=== PATIENT | female | born 1935 | race Caucasian/White ===

== ENCOUNTER → 2016-12-07 | Outpatient (CLI) | payer MEDICARE, BC ==
--- NOTE | 2016-12-08 19:17 | PE ---
EXAMINATION TYPE: PET CT fusion skull to thigh DATE OF EXAM: 12/07/2016 CLINICAL HISTORY: 83-year-old female subsequent evaluation of right breast cancer, status post chemot herapy and 2016 and previous surgery as well. TECHNIQUE: Following the intravenous administration of 3.59 mCi of F-18 FDG, whole body images are performed from the skull base to the midthigh. Images are reviewed on the computer in the coronal, a xial, and sagittal planes. Reconstructed rotating images are created on independent workstation and reviewed on the computer. A localization and attenuation correction CT is performed in conjunction with the PET scan. Glucose level: 108 mg/dL COMPARISON: CT abdomen 01/19/2014. FINDINGS: PET: Physiologic FDG uptake within the neck. There is right axillary lymphadenopathy with the largest individual lymph node measuring up to 3.8 cm short axis but an aggregate dimension over 6.4 cm. Max SUV 10.2; no additional thoracic lymphadenopa thy seen. Patient is status post left mastectomy and left axillary node dissection. There are bilateral renal cysts, largest in the right upper pole measuring 5.0 cm, increased from 201 4 where it measured 4.2 cm. Incidentally, there is delayed excretion of FDG from the left kidney. The renal lesions do not show discrete FDG uptake. Otherwise, physiologic uptake within the abdomen and pelvis. ATTENUATION CORRECTION CT: Visualized paranasal sinuses and mastoid air cells are clear. The heart is enlarged. There are mitral annular calcifications and coronary vessel calcifications whi ch are a marker for coronary artery. Aorta is normal caliber with conventional arch vessel branching anatomy. Some strandy atelectasis in the inferior lingula. No consolidation or pleural effusion. No dilated small bowel, free fluid, or free air. No mesenteric or retroperitoneal lymphadenopathy. Mi ld stool variant with sigmoid diverticulosis. No pericolonic inflammatory change. Bones: Degenerative changes of the hips and throughout the lumbar spine with endplate spondylosis the thoracic spine. IMPRESSION: 1. Hypermetabolic right axillary lymphadenopathy with an aggregate dimension of 6.4 cm. 2. No additional metastatic disease identified. 3. Incidental: Cardiomegaly, multiple renal cysts measuring up to 5 cm, and sigmoid diverticulosis.
== END | disposition home or self-care (01) ==
LOC: RADPETMAIN 09:14
PROVIDERS: ATTEND Internal Medicine Hematology & Oncology
DX: C50.412 Malignant neoplasm of upper-outer quadrant of left female breast (principal); R59.0 Localized enlarged lymph nodes
CPT/HCPCS: 78815; A9552

== ENCOUNTER → 2016-12-13 | Outpatient (CLI) | payer MEDICARE, BC ==
[2016-12-13 08:28] LABS: INR 1.3 (<1.2); Partial Thromboplastin Time 26.9 sec (22.0-30.0); Prothrombin Time 12.8 sec (9.0-12.0)
== END | disposition home or self-care (01) ==
LOC: LABWHC1 07:50
PROVIDERS: ATTEND Internal Medicine Hematology & Oncology
DX: Z51.81 Encounter for therapeutic drug level monitoring (principal); Z79.01 Long term (current) use of anticoagulants
CPT/HCPCS: 36415; 85610; 85730

== ENCOUNTER → 2016-12-13 | Day surgery (SDC) | payer MEDICARE, BC ==
[2016-12-13 08:34] VITALS: TEMP 97.7; BMI 30.2
--- NOTE | 2016-12-13 09:39 | USB ---
EXAMINATION TYPE: US biopsy breast VAD RT DATE OF EXAM: 12/13/2016 CLINICAL HISTORY: R92.8 ABN MAMMO. TECHNIQUE: Ultrasound guided core biopsy of right breast. COMPARISON: NONE FINDINGS: The procedure of ultrasound guided core biopsy was explained to the patient. Benefits, alternatives, and risks were discussed. An informed consent was then obtained. The 10-11 o'clock lesion was not identified on preliminary imaging and therefore cannot be biopsied percutaneously. The patient was placed in supine positioning for imaging and for the procedure. The overlying skin was prepped and draped in usual sterile fashion. Lidocaine buffered with bicarbonate was used as anesthetic into the skin and subcutaneous tissue up to area of concern in the right breast. A enrique was made with surgical scalpel. Under ultrasound guidance, a 16-gauge vacuum assisted biopsy gun device was used to obtain 3 core samples. Following this, a biopsy clip was left in lesion. The patient tolerated the procedure well without any immediate complication. The patient was kept in the radiology department for short stay after the procedure and then discharged home in stable condition. IMPRESSION: Successful, uncomplicated ultrasound guided core biopsy of area of concern in the right axilla, full pathology results to follow. Note is made the 10th 11:00 lesion described on the recent ultrasound was not seen on today's exam and therefore percutaneous biopsy could not be performed. If there is high clinical suspicion then MRI could BE obtained. Pathology Results: Malignant RIGHT AXILLA, CORE BIOPSY: POORLY DIFFERENTIATED INVASIVE DUCTAL CARCINOMA. SEE SURGICAL PATHOLOGY CANCER CASE SUMMARY AND COMMENT. Recommendation Surgical consult of the right breast. PADMINI
[2016-12-13 10:10] VITALS: BP 169/68; PULSE 69; RESP 16
== END ==
LOC: RADUSWWP 07:17
PROVIDERS: ATTEND Internal Medicine Hematology & Oncology
DX: C50.411 Malignant neoplasm of upper-outer quadrant of right female breast (principal); Z17.1 Estrogen receptor negative status [ER-]; Z85.3 Personal history of malignant neoplasm of breast
CPT/HCPCS: 36415; 85610; 85730; 88305; 88341; 88342

== ENCOUNTER 2017-03-01 06:33 | Inpatient (IN) | payer MEDICARE, BC ==
--- NOTE | 2017-03-01 07:20 | ED ---
General Adult HPI - General Chief complaint: Shortness of Breath Stated complaint: Diff breathing Time Seen by Provider: 03/01/17 07:00 Source: EMS, RN notes reviewed Mode of arrival: EMS Limitations: no limitations - History of Present Illness Initial comments: This is an 81-year-old female who presents emergency Department with a past medical history significant for breast cancer. Patient states she received chemotherapy on Friday. Patient states yesterday she started becoming short of breath and today she continues to be short of breath. Patient also is noted that her legs are much more edematous than normal. Patient denies any fever patient denies any cough patient denies any chest pain or palpitations. Patient states she does have a history of atrial fibrillation however. Patient denies abdominal pain patient denies nausea vomiting diarrhea. - Related Data Home Medications Medication Instructions Recorded Confirmed Allopurinol [Zyloprim] 300 mg PO DAILY 01/14/14 12/13/16 Digoxin [Lanoxin] 125 mcg PO QAM 01/14/14 12/13/16 Simvastatin [Zocor] 20 mg PO HS 01/14/14 12/13/16 amLODIPine [Norvasc] 2.5 mg PO QAM 01/14/14 12/13/16 Warfarin [Coumadin] 2.5 mg PO DAILY 05/04/14 12/13/16 ALPRAZolam [Xanax] 0.25 mg PO BID PRN 05/12/14 12/13/16 Mirabegron [Myrbetriq] 25 mg PO DAILY 12/10/16 12/13/16 Previous Rx's Medication Instructions Recorded Furosemide [Lasix] 40 mg PO BID@0900,1600 #60 tab 01/24/14 Metoprolol Tartrate [Lopressor] 25 mg PO BID #60 tab 01/24/14 Potassium Chloride ER [K-Dur 10] 10 meq PO DAILY #30 tab.er.prt 01/24/14 Allergies Allergy/AdvReac Type Severity Reaction Status Date / Time No Known Allergies Allergy Verified 03/01/17 06:39 Review of Systems ROS Statement: Those systems with pertinent positive or pertinent negative responses have been documented in the HPI. ROS Other: All systems not noted in ROS Statement are negative. Past Medical History Past Medical History: Atrial Fibrillation, Cancer, Heart Failure, Hyperlipidemia , Hypertension Additional Past Medical History / Comment(s): BREAST CA LEFT BREAST DX 6-1-16, MULT. SKIN CA REMOVED, irregular heart beat, benign paroxysmal positional vertigo, MITRAL VALVE stenosis, GOUT,incontinent of urine, rt breast biopsy "-" History of Any Multi-Drug Resistant Organisms: MRSA Date of last positivie culture/infection: 05/12/2014 MDRO Source:: Right First Finger - pt denies Past Surgical History: Breast Surgery, Hysterectomy, Joint Replacement Additional Past Surgical History / Comment(s): CORE BX LT BREAST, RT KNEE REPLACEMENT, RT INDEX FINGER DEBRIDEMENT,SKIN GRAFTRT FIRST FINGER, MULT SKIN CA REMOVED,CATHERINE CAT. lt breast mastectomy due to ca with lymph node removal july 2015 Past Anesthesia/Blood Transfusion Reactions: Motion Sickness Additional Past Anesthesia/Blood Transfusion Reaction / Comment(s): TAKES LONG TIME TO WAKE UP FROM ANESTHESIA,NO PROBLEMS WITH PRIOR BLOOD TRANSFUSIONS Past Psychological History: Anxiety Smoking Status: Never smoker Past Alcohol Use History: None Reported Past Drug Use History: None Reported - Past Family History Brother(s) Family Medical History: Cancer Additional Family Medical History / Comment(s): BRAIN CANCER,HEART PROBLEMS Father Family Medical History: Renal Disease Mother Family Medical History: Myocardial Infarction ([place]) General Exam - General Exam Comments Initial Comments: GENERAL: Patient is well-developed and well-nourished. Patient is nontoxic and well- hydrated and is in mild distress. ENT: Neck is soft and supple. No significant lymphadenopathy is noted. Oropharynx is clear. Moist mucous membranes. Neck has full range of motion without eliciting any pain. EYES: The sclera were anicteric and conjunctiva were pink and moist. Extraocular movements were intact and pupils were equal round and reactive to light. Eyelids were unremarkable. PULMONARY: Unlabored respirations. Good breath sounds bilaterally. Patient has crackles in the right base CARDIOVASCULAR: There is a regular rate and rhythm without any murmurs gallops or rubs. ABDOMEN: Soft and nontender with normal bowel sounds. No palpable organomegaly was noted. There is no palpable pulsatile mass. SKIN: Skin is clear with no lesions or rashes and otherwise unremarkable. NEUROLOGIC: Patient is alert and oriented x3. Cranial nerves II through XII are grossly intact. Motor and sensory are also intact. Normal speech, volume and content. Symmetrical smile. MUSCULOSKELETAL: Normal extremities with adequate strength and full range of motion. 2+ edema bilaterally LYMPHATICS: No significant lymphadenopathy is noted PSYCHIATRIC: Normal psychiatric evaluation. Normal interpersonal interactions appears functionally intact in deals appropriately with others. No signs of depression. No signs of anxiety. Limitations: no limitations Course Vital Signs 03/01/17 03/01/17 03/01/17 06:35 08:12 09:00 Temperature 98.4 F Pulse Rate 94 91 98 Respiratory 22 16 16 Rate Blood Pressure 153/106 154/66 177/86 O2 Sat by Pulse 94 L 97 95 Oximetry Medical Decision Making - Medical Decision Making EKG shows atrial fibrillation with rapid ventricular response at 104 bpm QRS is 102 QT interval 338 QTC is 444. Patient's EKG is a very poor quality but no obvious ST segment elevation is noted. Chest x-ray shows basilar airspace disease as well as bilateral pleural effusions and some vascular congestion. I started the patient on Lasix. I started the patient on Levaquin prophylactically secondary to the patient's immunocompromised state and the airspace disease seen at the bases. I spoke with Dr. Landry and he agreed to admit the patient I wrote admitting orders. - Lab Data Result diagrams: 03/01/17 06:58 03/01/17 06:58 Lab Results 03/01/17 03/01/17 03/01/17 Range/Units 06:58 06:58 06:58 WBC 14.5 H (3.8-10.6) k/uL RBC 3.10 L (3.80-5.40) m/uL Hgb 9.4 L (11.4-16.0) gm/dL Hct 28.9 L (34.0-46.0) % MCV 93.4 (80.0-100.0) fL MCH 30.4 (25.0-35.0) pg MCHC 32.6 (31.0-37.0) g/dL RDW 18.7 H (11.5-15.5) % Plt Count 82 L (150-450) k/uL Neutrophils % (Manual) 91 % Band Neutrophils % 3 % Lymphocytes % (Manual) 2 % Monocytes % (Manual) 3 % Eosinophils % (Manual) 1 % Neutrophils # (Manual) 13.60 H (1.3-7.7) k/uL Lymphocytes # (Manual) 0.29 L (1.0-4.8) k/uL Monocytes # (Manual) 0.44 (0-1.0) k/uL Eosinophils # (Manual) 0.15 (0-0.7) k/uL Nucleated RBCs 0 (0-0) /100 WBC Polychromasia Present Anisocytosis Slight Macrocytosis Slight PT (9.0-12.0) sec INR (<1.2) APTT (22.0-30.0) sec Sodium 141 (137-145) mmol/L Potassium 3.9 (3.5-5.1) mmol/L Chloride 105 (98-107) mmol/L Carbon Dioxide 27 (22-30) mmol/L Anion Gap 9 mmol/L BUN 76 H (7-17) mg/dL Creatinine 1.29 H (0.52-1.04) mg/dL Est GFR (MDRD) Af Amer 48 (>60 ml/min/1.73 sqM) Est GFR (MDRD) Non-Af 39 (>60 ml/min/1.73 sqM) Glucose 106 H (74-99) mg/dL Calcium 9.5 (8.4-10.2) mg/dL Magnesium 1.6 (1.6-2.3) mg/dL Total Bilirubin 1.3 (0.2-1.3) mg/dL AST 51 H (14-36) U/L ALT 67 H (9-52) U/L Alkaline Phosphatase 90 (38-126) U/L Total Creatine Kinase <20 L (30-135) U/L CK-MB (CK-2) 0.9 (0.0-2.4) ng/mL CK-MB (CK-2) Rel Index Troponin I 0.047 H* (0.000-0.034) ng/mL NT-Pro-B Natriuret Pep pg/mL Total Protein 5.1 L (6.3-8.2) g/dL Albumin 2.9 L (3.5-5.0) g/dL Urine Color Urine Appearance (Clear) Urine pH (5.0-8.0) Ur Specific [place] (1.001-1.035) Urine Protein (Negative) Urine Glucose (UA) (Negative) Urine Ketones (Negative) Urine Blood (Negative) Urine Nitrite (Negative) Urine Bilirubin (Negative) Urine Urobilinogen (<2.0) mg/dL Ur Leukocyte Esterase (Negative) Urine WBC (0-5) /hpf Ur Squamous Epith Cells (0-4) /hpf Urine Bacteria (None) /hpf Urine Mucus (None) /hpf 03/01/17 03/01/17 03/01/17 Range/Units 06:58 06:58 09:03 WBC (3.8-10.6) k/uL RBC (3.80-5.40) m/uL Hgb (11.4-16.0) gm/dL Hct (34.0-46.0) % MCV (80.0-100.0) fL MCH (25.0-35.0) pg MCHC (31.0-37.0) g/dL RDW (11.5-15.5) % Plt Count (150-450) k/uL Neutrophils % (Manual) % Band Neutrophils % % Lymphocytes % (Manual) % Monocytes % (Manual) % Eosinophils % (Manual) % Neutrophils # (Manual) (1.3-7.7) k/uL Lymphocytes # (Manual) (1.0-4.8) k/uL Monocytes # (Manual) (0-1.0) k/uL Eosinophils # (Manual) (0-0.7) k/uL Nucleated RBCs (0-0) /100 WBC Polychromasia Anisocytosis Macrocytosis PT 37.5 H (9.0-12.0) sec INR 4.2 H (<1.2) APTT 30.9 H (22.0-30.0) sec Sodium (137-145) mmol/L Potassium (3.5-5.1) mmol/L Chloride (98-107) mmol/L Carbon Dioxide (22-30) mmol/L Anion Gap mmol/L BUN (7-17) mg/dL Creatinine (0.52-1.04) mg/dL Est GFR (MDRD) Af Amer (>60 ml/min/1.73 sqM) Est GFR (MDRD) Non-Af (>60 ml/min/1.73 sqM) Glucose (74-99) mg/dL Calcium (8.4-10.2) mg/dL Magnesium (1.6-2.3) mg/dL Total Bilirubin (0.2-1.3) mg/dL AST (14-36) U/L ALT (9-52) U/L Alkaline Phosphatase (38-126) U/L Total Creatine Kinase (30-135) U/L CK-MB (CK-2) (0.0-2.4) ng/mL CK-MB (CK-2) Rel Index Troponin I (0.000-0.034) ng/mL NT-Pro-B Natriuret Pep 1700 pg/mL Total Protein (6.3-8.2) g/dL Albumin (3.5-5.0) g/dL Urine Color Light Yellow Urine Appearance Cloudy H (Clear) Urine pH 5.5 (5.0-8.0) Ur Specific [place] 1.009 (1.001-1.035) Urine Protein 1+ H (Negative) Urine Glucose (UA) Negative (Negative) Urine Ketones Negative (Negative) Urine Blood Negative (Negative) Urine Nitrite Negative (Negative) Urine Bilirubin Negative (Negative) Urine Urobilinogen <2.0 (<2.0) mg/dL Ur Leukocyte Esterase Negative (Negative) Urine WBC 2 (0-5) /hpf Ur Squamous Epith Cells 4 (0-4) /hpf Urine Bacteria Rare H (None) /hpf Urine Mucus Rare H (None) /hpf Disposition Clinical Impression: Pulmonary edema Disposition: ADMITTED IP TO THIS HOSP Referrals: Donnie Zuniga MD [Primary Care Provider] - 1-2 days Time of Disposition: 10:13
[2017-03-01 07:50] LABS: Anisocytosis Slight; HCT 28.9 % (34.0-46.0); HGB 9.4 gm/dL (11.4-16.0); MCH 30.4 pg (25.0-35.0); MCHC 32.6 g/dL (31.0-37.0); MCV 93.4 fL (80.0-100.0); Macrocytosis Slight; Mean Platelet Volume 8.5; RDW 18.7 % (11.5-15.5); WBC 14.5 k/uL (3.8-10.6)
[2017-03-01 07:58] LABS: INR 4.2 (<1.2); Partial Thromboplastin Time 30.9 sec (22.0-30.0); Prothrombin Time 37.5 sec (9.0-12.0)
[2017-03-01 08:05] LABS: Albumin 2.9 g/dL (3.5-5.0); Calcium 9.5 mg/dL (8.4-10.2); Magnesium 1.6 mg/dL (1.6-2.3); Potassium 3.9 mmol/L (3.5-5.1); Total Bilirubin 1.3 mg/dL (0.2-1.3); Total Protein 5.1 g/dL (6.3-8.2)
[2017-03-01 08:09] LABS: Band Neutrophils % 3 %; Eosinophils # (M) 0.15 k/uL (0-0.7); Lymphocytes # (M) 0.29 k/uL (1.0-4.8); Monocytes # (M) 0.44 k/uL (0-1.0); Neutrophils % (M) 91 %; Nucleated Red Blood Cells 0 /100 WBC (0-0); Polychromasia Present; Total Cells Counted 100
[2017-03-01 08:10] LABS: Platelet Count 82 k/uL (150-450)
[2017-03-01 08:41] LABS: Creatine Kinase <20 U/L (30-135)
[2017-03-01 08:54] LABS: Creatine Kinase MB 0.9 ng/mL (0.0-2.4)
[2017-03-01 08:56] LABS: Troponin I 0.047 ng/mL (0.000-0.034)
[2017-03-01 09:16] LABS: Appearance,Urine Cloudy (Clear); Bacteria,Urine Rare /hpf; Bilirubin,Urine Negative (Negative); Blood,Urine Negative (Negative); Color,Urine Light Yellow; Glucose,Urine (UA) Negative (Negative); Ketones,Urine Negative (Negative); Leukocyte Esterase,Urine Negative (Negative); Mucus,Urine Rare /hpf; Nitrite,Urine Negative (Negative); PH, Urine 5.5 (5.0-8.0); Protein,Urine 1+ (Negative); Specific Gravity,Urine 1.009 (1.001-1.035); Squamous Epithelial Cell,Urine 4 /hpf (0-4); Urobilinogen,Urine <2.0 mg/dL (<2.0); WBC,Urine 2 /hpf (0-5)
--- NOTE | 2017-03-01 09:36 | XR ---
EXAMINATION TYPE: XR chest 2V DATE OF EXAM: 03/01/2017 HISTORY: Difficulty breathing . REFERENCE: Previous study dated 01/19/2014. FINDINGS: There is a MediPort in place via a left internal jugular approach. Its tip is in the superi or vena cava. There is bibasilar airspace disease and small, bilateral effusions. The heart is enlarged. There is m ild vascular congestion without rubi edema. IMPRESSION: 1. BIBASILAR AIRSPACE DISEASE. 2. SMALL, BILATERAL EFFUSIONS. 3. CARDIOMEGALY AND VASCULAR CONGESTION.
[2017-03-01] MEDS ORDERED: FUROSEMIDE 10 MG/ML 2 ML VIAL IV STA (09:56)
[2017-03-01] MEDS ORDERED: LEVOFLOXACIN 750MG-D5W PMX 750 MG in DEXTROSE/WATER 1 150ML.BAG IVPB STA (09:58)
[2017-03-01] MEDS: LEVOFLOXACIN 750MG-D5W PMX 750 MG in DEXTROSE/WATER 1 150ML.BAG IVPB SCH (10:44)
[2017-03-01] MEDS: FUROSEMIDE 10 MG/ML 4 ML VIAL IV SCH ×2 (10:44→22:30)
[2017-03-01] MEDS ORDERED: MECLIZINE 25 MG TAB PO PRN (15:39)
[2017-03-01] MEDS: ATORVASTATIN 10 MG TAB PO SCH (20:05)
[2017-03-01] MEDS: METOPROLOL TARTRATE 25 MG TAB PO SCH (20:33)
[2017-03-01 21:08] LABS: Calcium 9.3 mg/dL (8.4-10.2); Magnesium 1.6 mg/dL (1.6-2.3); Potassium 4.1 mmol/L (3.5-5.1)
[2017-03-01] MEDS: ALPRAZolam 0.25 MG TAB PO PRN (22:30)
[2017-03-02 06:28] LABS: INR 2.4 (<1.2); Prothrombin Time 21.8 sec (9.0-12.0)
[2017-03-02 06:30] LABS: Anisocytosis Slight; Basophils # (A) 0.1 k/uL (0-0.2); Basophils % (A) 2 %; Eosinophils % (A) 1 %; HGB 8.3 gm/dL (11.4-16.0); Lymphocytes # (A) 0.2 k/uL (1.0-4.8); Lymphocytes % (A) 7 %; MCH 30.2 pg (25.0-35.0); MCHC 32.1 g/dL (31.0-37.0); MCV 94.1 fL (80.0-100.0); Macrocytosis Slight; Mean Platelet Volume 8.6; Monocytes # (A) 0.2 k/uL (0-1.0); Monocytes % (A) 8 %; Neutrophils # (A) 2.6 k/uL (1.3-7.7); Neutrophils % (A) 82 %; RBC 2.76 m/uL (3.80-5.40); RDW 18.7 % (11.5-15.5); WBC 3.2 k/uL (3.8-10.6)
[2017-03-02 06:31] LABS: Platelet Count 66 k/uL (150-450)
[2017-03-02 07:13] LABS: Albumin 2.6 g/dL (3.5-5.0); Calcium 9.8 mg/dL (8.4-10.2); Total Bilirubin 1.6 mg/dL (0.2-1.3); Total Protein 4.7 g/dL (6.3-8.2)
[2017-03-02] MEDS: POTASSIUM CHLORIDE ER 10 MEQ TAB.ER.PRT PO SCH (07:53)
[2017-03-02] MEDS: ALLOPURINOL 100 MG TAB PO SCH (07:54)
[2017-03-02] MEDS: DIGOXIN 125 MCG TAB PO SCH (07:54)
[2017-03-02] MEDS: METOPROLOL TARTRATE 25 MG TAB PO SCH ×2 (07:54→19:16)
[2017-03-02] MEDS: amLODIPine 2.5 MG TAB PO SCH (07:54)
[2017-03-02] MEDS: LEVOFLOXACIN 750MG-D5W PMX 750 MG in DEXTROSE/WATER 1 150ML.BAG IVPB SCH (11:49)
[2017-03-02] MEDS: FUROSEMIDE 10 MG/ML 4 ML VIAL IV SCH ×2 (11:49→19:25)
[2017-03-02] MEDS: NON-FORMULARY DRUG (Mirabegron [Myrbetriq] 25 MG) PO SCH (11:50)
--- NOTE | 2017-03-02 13:13 | P.CNPUL ---
History of Present Illness Consult date: 03/02/17 Reason for consult: dyspnea History of present illness: 81-year-old female patient, known history of breast cancer currently undergoing systemic chemotherapy, presented to the ED for increased shortness of breath. The patient was getting progressively more dyspneic over the past 2-3 days. No cough. No sputum production. No fever or chills. No pleurisy. She reported orthopnea. She also reported progressive increase in lower extremity edema. She was chronic atrial fibrillation and she is on anticoagulation with warfarin and she uses digoxin for rate control. She also has history of mitral stenosis. Her chest x-ray was consistent with acute CHF/pulmonary edema. The patient was started on IV Lasix. She has diuresed adequately and she is already feeling better. No new complaints otherwise for now. She seems to be quite fatigued and she is expressing significant amount of side effects from systemic chemotherapy including her last weakness, diminished appetite and alopecia. Her concerns of troponin was 0.047. BNP level was at 1700. She has also chronic renal failure. Creatinine is at 1.28 which is improved Review of Systems Constitutional: Reports fatigue, Reports lethargy, Reports weakness, Reports weight loss Eyes: denies blurred vision, denies bulging eye, denies decreased vision Ears: deny: decreased hearing, ear discharge, earache Ears, nose, mouth and throat: Denies headache, Denies sore throat Cardiovascular: Reports decreased exercise tolerance, Reports dyspnea on exertion, Reports orthopnea, Reports palpitations, Reports shortness of breath Respiratory: Reports dyspnea Gastrointestinal: Reports abdominal pain, Reports diarrhea, Reports loss of appetite Genitourinary: Denies dysuria, Denies hematuria Musculoskeletal: Denies myalgias Musculoskeletal: bilateral: ankle swelling, absent: ankle pain, ankle stiffness Integumentary: Denies pruritus, Denies rash Neurological: Denies numbness, Denies weakness Psychiatric: Denies anxiety, Denies depression Endocrine: Denies fatigue, Denies weight change Past Medical History Past Medical History: Atrial Fibrillation, Cancer, Heart Failure, Hyperlipidemia , Hypertension, Pneumonia, Skin Disorder Additional Past Medical History / Comment(s): breast cancer diagnosed July 2015 with masectomy, skin cancer, vertigo, mitral valve stenosis, chronic atrial fibrillation, gout ,incontinent of urine, right lymph positve for breast ca in November 2016, chronic renal failure History of Any Multi-Drug Resistant Organisms: MRSA Date of last positivie culture/infection: 05/12/2014 MDRO Source:: R first finger and sputum Past Surgical History: Breast Surgery, Hysterectomy, Joint Replacement Additional Past Surgical History / Comment(s): CORE BX LT BREAST, RT KNEE REPLACEMENT, RT INDEX FINGER DEBRIDEMENT,SKIN GRAFTRT FIRST FINGER, MULT SKIN CA REMOVED,CATHERINE CAT. lt breast mastectomy due to ca with lymph node removal july 2015 Past Anesthesia/Blood Transfusion Reactions: Motion Sickness Additional Past Anesthesia/Blood Transfusion Reaction / Comment(s): TAKES LONG TIME TO WAKE UP FROM ANESTHESIA,NO PROBLEMS WITH PRIOR BLOOD TRANSFUSIONS Past Psychological History: Anxiety Smoking Status: Never smoker Past Alcohol Use History: None Reported Past Drug Use History: None Reported - Past Family History Brother(s) Family Medical History: Cancer Additional Family Medical History / Comment(s): BRAIN CANCER,HEART PROBLEMS Father Family Medical History: Renal Disease Mother Family Medical History: Myocardial Infarction ([place]) Medications and Allergies Home Medications Medication Instructions Recorded Confirmed Type Digoxin [Lanoxin] 125 mcg PO QAM 01/14/14 03/01/17 History Simvastatin [Zocor] 20 mg PO HS 01/14/14 03/01/17 History amLODIPine [Norvasc] 2.5 mg PO QAM 01/14/14 03/01/17 History Furosemide [Lasix] 40 mg PO BID@0900,1600 #60 tab 01/24/14 03/01/17 Rx Metoprolol Tartrate [Lopressor] 25 mg PO BID #60 tab 01/24/14 03/01/17 Rx Potassium Chloride ER [K-Dur 10] 10 meq PO DAILY #30 tab.er.prt 01/24/14 Rx Warfarin [Coumadin] 2.5 mg PO DAILY 05/04/14 03/01/17 History ALPRAZolam [Xanax] 0.25 mg PO BID PRN 05/12/14 03/01/17 History Mirabegron [Myrbetriq] 25 mg PO DAILY 12/10/16 03/01/17 History Allopurinol [Zyloprim] 100 mg PO DAILY 03/01/17 03/01/17 History Meclizine [Antivert] 25 mg PO TID PRN 03/01/17 03/01/17 History Allergies Allergy/AdvReac Type Severity Reaction Status Date / Time No Known Allergies Allergy Verified 03/01/17 11:17 Physical Exam Vitals: Vital Signs Temp Pulse Pulse Pulse Resp BP BP 03/02/17 11:52 99.8 F H 86 20 148/65 03/02/17 07:50 98.7 F 101 H 20 144/63 03/02/17 04:00 98.3 F 93 16 128/60 03/01/17 23:56 98.3 F 89 16 136/57 03/01/17 20:00 100.4 F H 106 H 16 135/62 03/01/17 15:37 97.6 F 80 20 169/77 03/01/17 14:20 98.1 F 106 H 22 145/63 03/01/17 13:54 112 H 22 132/58 Pulse Ox 03/02/17 11:52 92 L 03/02/17 07:50 92 L 03/02/17 04:00 93 L 03/01/17 23:56 96 03/01/17 20:00 93 L 03/01/17 15:37 93 L 03/01/17 14:20 95 03/01/17 13:54 96 Intake and Output 03/01/17 03/02/17 03/02/17 22:59 06:59 14:59 Intake Total 60 10 120 Output Total 850 1400 1475 Balance -790 -1390 -1355 Intake: IV 10 10 0.9 10 10 Oral 50 120 Output: Urine 850 1400 725 Post Void Residual 750 Other: Voiding Method Bedpan Bedpan Bedpan Incontinent # Voids 1 1 # Bowel Movements 0 Weight 72.121 kg Debilitated, comfortable not in distress.Head exam was generally normal. There was no scleral icterus or corneal arcus. Mucous membranes were moist. Patient has alopecia related to systemic chemotherapy.Neck was supple and without jugular venous distension, thyromegaly, or carotid bruits. Carotids were easily palpable bilaterally. There was no adenopathy. There is positive JVDs and there is no goiter or neck masses this point. Lung sounds are diminished and there is crackles at lung bases bilaterally. Heart sounds are irregular, positive S1-S2 and there is no significant murmurs appreciated.Abdominal exam revealed normal bowel sounds. The abdomen was soft, non-tender, and without masses, organomegaly, or appreciable enlargement of the abdominal aorta. Extremities reveal +1 pitting edema which is improving. No cyanosis or clubbing at this point.Examination of the skin revealed no evidence of significant rashes, suspicious appearing nevi or other concerning lesions. Neurologically the patient is awake and alert and there is no focal neurological deficit at this point. The patient has a Mediport over the left anterior chest area and the site is dry clean and intact at this point. Results - Laboratory Findings CBC and BMP: 03/02/17 05:42 03/02/17 05:42 PT/INR, D-dimer PT 21.8 sec (9.0-12.0) H 03/02/17 05:42 INR 2.4 (<1.2) H 03/02/17 05:42 Abnormal lab findings: Abnormal Labs 03/01/17 03/01/17 03/01/17 06:58 06:58 06:58 WBC 14.5 H RBC 3.10 L Hgb 9.4 L Hct 28.9 L RDW 18.7 H Plt Count 82 L Neutrophils # (Manual) 13.60 H Lymphocytes # Lymphocytes # (Manual) 0.29 L PT INR APTT Carbon Dioxide BUN 76 H Creatinine 1.29 H Glucose 106 H Total Bilirubin AST 51 H ALT 67 H Total Creatine Kinase <20 L Troponin I 0.047 H* Total Protein 5.1 L Albumin 2.9 L Urine Appearance Urine Protein Urine Bacteria Urine Mucus 03/01/17 03/01/17 03/01/17 06:58 09:03 20:30 WBC RBC Hgb Hct RDW Plt Count Neutrophils # (Manual) Lymphocytes # Lymphocytes # (Manual) PT 37.5 H INR 4.2 H APTT 30.9 H Carbon Dioxide BUN 71 H Creatinine 1.30 H Glucose 107 H Total Bilirubin AST ALT Total Creatine Kinase Troponin I Total Protein Albumin Urine Appearance Cloudy H Urine Protein 1+ H Urine Bacteria Rare H Urine Mucus Rare H 03/02/17 03/02/17 03/02/17 05:42 05:42 05:42 WBC 3.2 L RBC 2.76 L Hgb 8.3 L Hct 26.0 L RDW 18.7 H Plt Count 66 L Neutrophils # (Manual) Lymphocytes # 0.2 L Lymphocytes # (Manual) PT 21.8 H INR 2.4 H APTT Carbon Dioxide 32 H BUN 65 H Creatinine 1.28 H Glucose 127 H Total Bilirubin 1.6 H AST ALT 58 H Total Creatine Kinase Troponin I Total Protein 4.7 L Albumin 2.6 L Urine Appearance Urine Protein Urine Bacteria Urine Mucus - Diagnostic Findings Chest x-ray: image reviewed Assessment and Plan Plan: Assessment 1 acute CHF with pulmonary edema. The patient is responding nicely to diuretics. 2 acute hypoxic respiratory failure secondary to above, improving 3 chronic atrial fibrillation 4 valvular heart disease with mitral stenosis 5 chronic renal failure, creatinine is stable 6 breast cancer currently undergoing systemic chemotherapy 7 skin cancer, history of 8 gout 9 chronic anemia, multifactorial, normocytic 10 thrombocytopenia, platelet count is at 66. Possibly chemotherapy-induced. Plan Continue to coagulation with warfarin. PT/INR is therapeutic. # continue Lasix IV and maintain negative fluid balance. Repeat echocardiogram. Wean down the oxygen as tolerated. We'll continue to follow. Repeat chest x-ray in a.m.
--- NOTE | 2017-03-02 13:29 | P.HPIM ---
History of Present Illness H&P Date: 03/02/17 Chief Complaint: shortness of breath this is a 81-year-old female with complex past medical history detailed below significant for underlying breast cancer on chemotherapy. Patient presented to the emergency room with worsening shortness of breath and fatigue. Patient said that her last chemo was approximately 2 weeks ago. She said that the chemo is making her fatigued. For the past 2 or 3 days patient noted worsening shortness of breath and lower extremity edema. She denies any cough. No fevers or chills. No orthopnea. Patient said that she is known to have heart failure and usually follow-up with cardiology. She is also known to have underlying A. fib and is on anticoagulation with Coumadin. Patient was evaluated in the emergency room and was found to have evidence of fluid overload. BNP was slightly elevated. Patient was started on IV Lasix and admitted to the hospital for further evaluation. Review of Systems Review of system: 14 points review of systems were obtained and were negative except to what were mentioned in the HPI. Past Medical History Past Medical History: Atrial Fibrillation, Cancer, Heart Failure, Hyperlipidemia , Hypertension, Pneumonia, Skin Disorder Additional Past Medical History / Comment(s): breast cancer diagnosed July 2015 with masectomy, skin cancer, vertigo, mitral valve stenosis, chronic atrial fibrillation, gout ,incontinent of urine, right lymph positve for breast ca in November 2016, chronic renal failure History of Any Multi-Drug Resistant Organisms: MRSA Date of last positivie culture/infection: 05/12/2014 MDRO Source:: R first finger and sputum Past Surgical History: Breast Surgery, Hysterectomy, Joint Replacement Additional Past Surgical History / Comment(s): CORE BX LT BREAST, RT KNEE REPLACEMENT, RT INDEX FINGER DEBRIDEMENT,SKIN GRAFTRT FIRST FINGER, MULT SKIN CA REMOVED,CATHERINE CAT. lt breast mastectomy due to ca with lymph node removal july 2015 Past Anesthesia/Blood Transfusion Reactions: Motion Sickness Additional Past Anesthesia/Blood Transfusion Reaction / Comment(s): TAKES LONG TIME TO WAKE UP FROM ANESTHESIA,NO PROBLEMS WITH PRIOR BLOOD TRANSFUSIONS Past Psychological History: Anxiety Smoking Status: Never smoker Past Alcohol Use History: None Reported Past Drug Use History: None Reported - Past Family History Brother(s) Family Medical History: Cancer Additional Family Medical History / Comment(s): BRAIN CANCER,HEART PROBLEMS Father Family Medical History: Renal Disease Mother Family Medical History: Myocardial Infarction ([place]) Medications and Allergies Home Medications Medication Instructions Recorded Confirmed Type Digoxin [Lanoxin] 125 mcg PO QAM 01/14/14 03/01/17 History Simvastatin [Zocor] 20 mg PO HS 01/14/14 03/01/17 History amLODIPine [Norvasc] 2.5 mg PO QAM 01/14/14 03/01/17 History Furosemide [Lasix] 40 mg PO BID@0900,1600 #60 tab 01/24/14 03/01/17 Rx Metoprolol Tartrate [Lopressor] 25 mg PO BID #60 tab 01/24/14 03/01/17 Rx Potassium Chloride ER [K-Dur 10] 10 meq PO DAILY #30 tab.er.prt 01/24/14 Rx Warfarin [Coumadin] 2.5 mg PO DAILY 05/04/14 03/01/17 History ALPRAZolam [Xanax] 0.25 mg PO BID PRN 05/12/14 03/01/17 History Mirabegron [Myrbetriq] 25 mg PO DAILY 12/10/16 03/01/17 History Allopurinol [Zyloprim] 100 mg PO DAILY 03/01/17 03/01/17 History Meclizine [Antivert] 25 mg PO TID PRN 03/01/17 03/01/17 History Allergies Allergy/AdvReac Type Severity Reaction Status Date / Time No Known Allergies Allergy Verified 03/01/17 11:17 Physical Exam Vitals: Vital Signs Temp Pulse Pulse Pulse Resp BP BP 03/02/17 11:52 99.8 F H 86 20 148/65 03/02/17 07:50 98.7 F 101 H 20 144/63 03/02/17 04:00 98.3 F 93 16 128/60 03/01/17 23:56 98.3 F 89 16 136/57 03/01/17 20:00 100.4 F H 106 H 16 135/62 03/01/17 15:37 97.6 F 80 20 169/77 03/01/17 14:20 98.1 F 106 H 22 145/63 03/01/17 13:54 112 H 22 132/58 Pulse Ox 03/02/17 11:52 92 L 03/02/17 07:50 92 L 03/02/17 04:00 93 L 03/01/17 23:56 96 03/01/17 20:00 93 L 03/01/17 15:37 93 L 03/01/17 14:20 95 03/01/17 13:54 96 Intake and Output 03/01/17 03/02/17 03/02/17 22:59 06:59 14:59 Intake Total 60 10 120 Output Total 850 1400 1475 Balance -790 -1390 -1355 Intake: IV 10 10 0.9 10 10 Oral 50 120 Output: Urine 850 1400 725 Post Void Residual 750 Other: Voiding Method Bedpan Bedpan Bedpan Incontinent # Voids 1 1 # Bowel Movements 0 Weight 72.121 kg General: The patient is awake and alert, in no distress. She appears chronically ill. Eye: there is normal conjunctiva bilaterally. Neck: The neck is supple, there is no JVD. Cardiovascular: Normal S1-S2, no S3-S4, no murmurs. Respiratory: Lungs with bibasilar crackles Gastrointestinal: Abdomen is soft, nontender Musculoskeletal: There is +1-2 pedal edema. Neurological:. Speech is normal. Skin: Skin is warm and dry Results CBC & Chem 7: 03/02/17 05:42 03/02/17 05:42 Labs: Abnormal Lab Results - Last 24 Hours (Table) 03/01/17 03/02/17 03/02/17 Range/Units 20:30 05:42 05:42 WBC 3.2 L (3.8-10.6) k/uL RBC 2.76 L (3.80-5.40) m/uL Hgb 8.3 L (11.4-16.0) gm/dL Hct 26.0 L (34.0-46.0) % RDW 18.7 H (11.5-15.5) % Plt Count 66 L (150-450) k/uL Lymphocytes # 0.2 L (1.0-4.8) k/uL PT 21.8 H (9.0-12.0) sec INR 2.4 H (<1.2) Carbon Dioxide (22-30) mmol/L BUN 71 H (7-17) mg/dL Creatinine 1.30 H (0.52-1.04) mg/dL Glucose 107 H (74-99) mg/dL Total Bilirubin (0.2-1.3) mg/dL ALT (9-52) U/L Total Protein (6.3-8.2) g/dL Albumin (3.5-5.0) g/dL 03/02/17 Range/Units 05:42 WBC (3.8-10.6) k/uL RBC (3.80-5.40) m/uL Hgb (11.4-16.0) gm/dL Hct (34.0-46.0) % RDW (11.5-15.5) % Plt Count (150-450) k/uL Lymphocytes # (1.0-4.8) k/uL PT (9.0-12.0) sec INR (<1.2) Carbon Dioxide 32 H (22-30) mmol/L BUN 65 H (7-17) mg/dL Creatinine 1.28 H (0.52-1.04) mg/dL Glucose 127 H (74-99) mg/dL Total Bilirubin 1.6 H (0.2-1.3) mg/dL ALT 58 H (9-52) U/L Total Protein 4.7 L (6.3-8.2) g/dL Albumin 2.6 L (3.5-5.0) g/dL Microbiology - Last 24 Hours (Table) 03/01/17 06:58 Blood Culture - Preliminary Blood No Growth after 24 hours Thrombosis Risk Factor Assmnt - Choose All That Apply Any of the Below Risk Factors Present?: Yes Each Factor Represents 1 point: Obesity (BMI >25) Other Risk Factors: Yes Each Risk Factor Represents 2 Points: Malignancy Each Risk Factor Represents 3 Points: Age 75 years or older Other congenital or acquired thrombophilia - If yes, enter type in comment: No Thrombosis Risk Factor Assessment Total Risk Factor Score: 6 Thrombosis Risk Factor Assessment Level: High Risk Assessment and Plan Assessment: 1. Progressive dyspnea: Multifactorial 2. Suspected CHF exacerbation, with elevated BNP and evidence of fluid overload.Patient is on IV Lasix. I would obtain echocardiogram. Cardiology consulted. 3. Obstructive uropathy: Status post Dill catheter insertion with approximately 650 mL of urine drained. This may be contributing to her fluid overload 4. Suspected bibasilar pneumonia: Currently on IV Levaquin. Cough is nonproductive. Patient is immunocompromised so her pneumonia may not present with a full clinical picture. 5. Right breast cancer on chemotherapy, oncology consulted for further evaluation. Patient expressed no interest in getting more chemotherapy as she believes that she can tolerated. I would leave that discussion to her and her oncologist. 6. Pancytopenia, most likely chemotherapy induced. We will monitor CBC daily 7. Chronic atrial fibrillation: Heart rate well controlled. Patient is on anticoagulation with Coumadin. 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 Today, I reviewed her medication list and lab work results. I discussed her current clinical condition with the patient and her son at bedside. I answered all of their questions to their satisfaction. We will continue supportive care. monitor I's and O's closely. IV diuresis with Lasix. repeat lab work in the morning
[2017-03-02] MEDS: WARFARIN 2.5 MG TAB PO SCH (19:01)
[2017-03-02] MEDS: ALPRAZolam 0.25 MG TAB PO PRN (19:15)
[2017-03-02] MEDS: ATORVASTATIN 10 MG TAB PO SCH (19:16)
[2017-03-02] MEDS: IPRATROPIUM-ALBUTEROL 3 ML NEB INHALATION SCH ×2 (19:58→23:44)
[2017-03-03] MEDS: ALPRAZolam 0.25 MG TAB PO PRN ×3 (02:43→20:10)
[2017-03-03] MEDS: IPRATROPIUM-ALBUTEROL 3 ML NEB INHALATION SCH ×6 (03:59→23:27)
[2017-03-03 06:51] LABS: INR 1.9 (<1.2); Prothrombin Time 17.1 sec (9.0-12.0)
[2017-03-03 07:05] LABS: Albumin 2.8 g/dL (3.5-5.0); Calcium 9.7 mg/dL (8.4-10.2); Potassium 3.4 mmol/L (3.5-5.1); Total Bilirubin 1.4 mg/dL (0.2-1.3); Total Protein 4.8 g/dL (6.3-8.2)
[2017-03-03 08:03] LABS: Anisocytosis Slight; HCT 25.9 % (34.0-46.0); HGB 8.1 gm/dL (11.4-16.0); MCH 29.5 pg (25.0-35.0); MCHC 31.3 g/dL (31.0-37.0); MCV 94.4 fL (80.0-100.0); Macrocytosis Slight; RBC 2.74 m/uL (3.80-5.40); RDW 18.1 % (11.5-15.5)
--- NOTE | 2017-03-03 08:23 | P.CRDCN ---
History of Present Illness Consult date: 03/03/17 Requesting physician: Erin Landry Consult reason: congestive heart failure Chief complaint: Shortness of breath History of present illness: This is a pleasant 81-year-old female who follows regularly with in the office. She has a known history of hypertension, diabetes, hyperlipidemia, mitral stenosis, chronic persistent atrial fibrillation, patient also has breast cancer for which she is currently undergoing chemotherapy. She presents to the hospital with symptoms of progressively worsening shortness of breath with associated peripheral edema. According to the patient, each time she gets chemotherapy she gets quite short of breath, and has associated swelling. She states that she just had her third treatment of chemo, and does not wish to have any further chemo treatments. EKG on admission here shows atrial fibrillation with rapid ventricular response. Chest x-ray shows bibasilar airspace disease with small bilateral effusions and vascular congestion. Blood pressure on arrival here 153/106 with a heart rate in the 90s, 94% on room air. Blood pressure this morning 134/60, she is 93% on 12l high flow. White blood cell count on admission 14.5, 3.2 this morning. Hemoglobin 8.3, platelet count 66. INR on admission 4.2, 1.9 this morning. Sodium 147, potassium 3.4, BUN 55, creatinine 1.4. AST and ALT mildly elevated on admission, coming down. Troponin 0.047. BNP 1700. At the time of my examination this morning, patient is still quite short of breath, she does state that her edema is improving. She feels extremely fatigued, has no appetite. Past Medical History Past Medical History: Atrial Fibrillation, Cancer, Heart Failure, Hyperlipidemia , Hypertension, Pneumonia, Skin Disorder Additional Past Medical History / Comment(s): breast cancer diagnosed July 2015 with masectomy, skin cancer, vertigo, mitral valve stenosis, chronic atrial fibrillation, gout ,incontinent of urine, right lymph positve for breast ca in November 2016, chronic renal failure History of Any Multi-Drug Resistant Organisms: MRSA Date of last positivie culture/infection: 05/12/2014 MDRO Source:: R first finger and sputum Past Surgical History: Breast Surgery, Hysterectomy, Joint Replacement Additional Past Surgical History / Comment(s): CORE BX LT BREAST, RT KNEE REPLACEMENT, RT INDEX FINGER DEBRIDEMENT,SKIN GRAFTRT FIRST FINGER, MULT SKIN CA REMOVED,CATHERINE CAT. lt breast mastectomy due to ca with lymph node removal july 2015 Past Anesthesia/Blood Transfusion Reactions: Motion Sickness Additional Past Anesthesia/Blood Transfusion Reaction / Comment(s): TAKES LONG TIME TO WAKE UP FROM ANESTHESIA,NO PROBLEMS WITH PRIOR BLOOD TRANSFUSIONS Past Psychological History: Anxiety Smoking Status: Never smoker Past Alcohol Use History: None Reported Past Drug Use History: None Reported - Past Family History Brother(s) Family Medical History: Cancer Additional Family Medical History / Comment(s): BRAIN CANCER,HEART PROBLEMS Father Family Medical History: Renal Disease Mother Family Medical History: Myocardial Infarction ([place]) Medications and Allergies Home Medications Medication Instructions Recorded Confirmed Type Digoxin [Lanoxin] 125 mcg PO QAM 01/14/14 03/01/17 History Simvastatin [Zocor] 20 mg PO HS 01/14/14 03/01/17 History amLODIPine [Norvasc] 2.5 mg PO QAM 01/14/14 03/01/17 History Furosemide [Lasix] 40 mg PO BID@0900,1600 #60 tab 01/24/14 03/01/17 Rx Metoprolol Tartrate [Lopressor] 25 mg PO BID #60 tab 01/24/14 03/01/17 Rx Potassium Chloride ER [K-Dur 10] 10 meq PO DAILY #30 tab.er.prt 01/24/14 Rx Warfarin [Coumadin] 2.5 mg PO DAILY 05/04/14 03/01/17 History ALPRAZolam [Xanax] 0.25 mg PO BID PRN 05/12/14 03/01/17 History Mirabegron [Myrbetriq] 25 mg PO DAILY 12/10/16 03/01/17 History Allopurinol [Zyloprim] 100 mg PO DAILY 03/01/17 03/01/17 History Meclizine [Antivert] 25 mg PO TID PRN 03/01/17 03/01/17 History Allergies Allergy/AdvReac Type Severity Reaction Status Date / Time No Known Allergies Allergy Verified 03/01/17 11:17 Physical Exam Vitals: Vital Signs Temp Pulse Pulse Resp BP Pulse Ox 03/03/17 06:14 112 H 18 93 L 03/03/17 05:59 92 L 03/03/17 04:19 88 03/03/17 03:59 96 03/03/17 03:14 97.5 F L 100 18 134/61 92 L 03/03/17 00:00 84 03/02/17 23:45 92 03/02/17 23:13 100 F H 94 18 121/57 95 03/02/17 19:59 96 03/02/17 19:42 98.4 F 101 H 18 158/67 93 L 03/02/17 19:40 120 H 30 H 84 L 03/02/17 15:52 99.9 F H 101 H 20 135/70 92 L 03/02/17 11:52 99.8 F H 86 20 148/65 92 L Intake and Output 03/02/17 03/03/17 03/03/17 22:59 06:59 14:59 Intake Total 854 10 Output Total 1300 1300 Balance -446 -1290 Intake: IV 14 10 0.9 10 10 Furosemide 4 Oral 840 Output: Urine 1300 1300 Other: Voiding Method Indwelling Catheter Indwelling Catheter # Bowel Movements 1 Weight 71.8 kg PHYSICAL EXAMINATION: HEENT: Head is atraumatic, normocephalic. Pupils equal, round. Neck is supple. There is elevated jugular venous pressure. HEART EXAMINATION: Heart S1-S2 diastolic murmur is heard. CHEST EXAMINATION: Lungs reveal crackles to bilateral bases with diminished air entry to the bases. ABDOMEN: Soft, nontender. Bowel sounds are heard. No organomegaly noted. EXTREMITIES: 2+ peripheral pulses with 1-2+ evidence of peripheral edema and no calf tenderness noted. NEUROLOGIC patient is awake, alert and oriented -3. . Results 03/02/17 05:42 03/03/17 05:49 Cardiac Enzymes 03/03/17 Range/Units 05:49 AST 26 (14-36) U/L Coagulation 03/03/17 Range/Units 05:49 PT 17.1 H (9.0-12.0) sec Comprehensive Metabolic Panel 03/03/17 Range/Units 05:49 Sodium 147 H (137-145) mmol/L Potassium 3.4 L (3.5-5.1) mmol/L Chloride 103 (98-107) mmol/L Carbon Dioxide 31 H (22-30) mmol/L BUN 55 H (7-17) mg/dL Creatinine 1.41 H (0.52-1.04) mg/dL Glucose 157 H (74-99) mg/dL Calcium 9.7 (8.4-10.2) mg/dL AST 26 (14-36) U/L ALT 65 H (9-52) U/L Alkaline Phosphatase 69 (38-126) U/L Total Protein 4.8 L (6.3-8.2) g/dL Albumin 2.8 L (3.5-5.0) g/dL Current Medications Generic Name Dose Route Start Last Admin Trade Name Freq PRN Reason Stop Dose Admin Albuterol/Ipratropium 3 ml 03/02/17 20:00 03/03/17 03:59 Duoneb 0.5 Mg-3 Mg/3 Ml Soln INHALATION 3 ml RT-Q4H CELIO Administration Allopurinol 100 mg 03/02/17 09:00 03/02/17 07:54 Zyloprim PO 100 mg DAILY CELIO Administration Alprazolam 0.25 mg 03/01/17 15:39 03/03/17 05:23 Xanax PO 0.25 mg BID PRN Administration Anxiety Amlodipine Besylate 2.5 mg 03/02/17 09:00 03/02/17 07:54 Norvasc PO 2.5 mg QAM CELIO Administration Atorvastatin Calcium 10 mg 03/01/17 21:00 03/02/17 19:16 Lipitor PO 10 mg HS CELIO Administration Digoxin 125 mcg 03/02/17 09:00 03/02/17 07:54 Lanoxin PO 125 mcg QAM CELIO Administration Furosemide 40 mg 03/01/17 10:45 03/02/17 19:25 Lasix IV 40 mg Q12H CELIO Administration Levofloxacin 750 mg/ IV 150 mls @ 100 mls/hr 03/01/17 10:45 03/02/17 11:49 Solution IVPB 100 mls/hr Q24H CELIO Administration Meclizine HCl 25 mg 03/01/17 15:39 Antivert PO TID PRN Nausea Metoprolol Tartrate 25 mg 03/01/17 21:00 03/02/17 19:16 Lopressor PO 25 mg BID CELIO Administration Non-Formulary Medication 25 mg 03/02/17 09:00 03/02/17 11:50 Mirabegron [Myrbetriq] PO Not Given DAILY [facility] Potassium Chloride 10 meq 03/02/17 09:00 03/02/17 07:53 K-Dur 10 PO 10 meq DAILY CELIO Administration Warfarin Sodium 2.5 mg 03/02/17 18:00 03/02/17 19:01 Coumadin PO 2.5 mg DAILY@1800 CELIO Administration Intake and Output 03/02/17 03/03/17 03/03/17 22:59 06:59 14:59 Intake Total 854 10 Output Total 1300 1300 Balance -446 -1290 Intake: IV 14 10 0.9 10 10 Furosemide 4 Oral 840 Output: Urine 1300 1300 Other: Voiding Method Indwelling Catheter Indwelling Catheter # Bowel Movements 1 Weight 71.8 kg 03/02/17 05:42 03/03/17 05:49 EKG Interpretations (text) EKG shows atrial fibrillation with a moderately rapid ventricular response. Assessment and Plan Plan: Assessment and plan #1 congestive heart failure, acute on chronic. Likely diastolic in nature. Patient's most recent echo I have available was performed in 2013 at which time her ejection fraction was documented to be 50-55%. #2 right breast cancer, currently on chemotherapy #3 pancytopenia, likely secondary to chemo #4 chronic persistent atrial fibrillation, on Coumadin for anticoagulation, INR today 1.9. #5 hypertension #6 diabetes #7 hyperlipidemia Plan We will obtain an echocardiogram with Doppler study. Continue IV Lasix. Continue to monitor intake and output along with daily weights, daily lytes BUN and creatinine. DNP note has been reviewed, I agree with a documented findings and plan of care. Patient was seen and examined.
[2017-03-03 08:46] LABS: WBC 0.6 k/uL (3.8-10.6)
[2017-03-03 08:48] LABS: Platelet Count 63 k/uL (150-450)
[2017-03-03] MEDS: ALLOPURINOL 100 MG TAB PO SCH (09:11)
[2017-03-03] MEDS: METOPROLOL TARTRATE 25 MG TAB PO SCH ×3 (09:12→23:13)
[2017-03-03] MEDS: amLODIPine 2.5 MG TAB PO SCH (09:12)
[2017-03-03] MEDS: DIGOXIN 125 MCG TAB PO SCH (09:12)
[2017-03-03] MEDS: FUROSEMIDE 10 MG/ML 4 ML VIAL IV SCH ×3 (09:13→23:13)
[2017-03-03] MEDS: NON-FORMULARY DRUG (Mirabegron [Myrbetriq] 25 MG) PO SCH (09:13)
[2017-03-03] MEDS: POTASSIUM CHLORIDE ER 10 MEQ TAB.ER.PRT PO SCH (09:13)
[2017-03-03] MEDS: LEVOFLOXACIN 750MG-D5W PMX 750 MG in DEXTROSE/WATER 1 150ML.BAG IVPB SCH (09:16)
--- NOTE | 2017-03-03 10:00 | P.PN ---
Progress Note - Text this is an addendum to the dictated cardiology consultation. The patient has a known history of chronic persistent atrial fibrillation, breast cancer receiving chemotherapy who presents with symptoms progressive dyspnea, worsening peripheral edema, PND and orthopnea. She feels quite weak and fatigued and according to her, her symptoms are occurring every time she receives chemotherapy. She is in heart failure on presentation with evidence of fluid overload. her lab data is consistent with pancytopenia and renal failure. At this time I will continue IV diuresis, obtain an echocardiogram with Doppler. I will stop her amlodipine and her digoxin. The dose of her beta sotero will be increased. We will follow her renal function closely. Unfortunately the prognosis is quite poor in view of her malignancy. The patient is leaning toward stopping her chemotherapy. Thank you for this consult we will follow with you.
--- NOTE | 2017-03-03 10:41 | ECHOF ---
Referral Reason:heart failure MEASUREMENTS -------- HEIGHT: 152.4 cm WEIGHT: 71.7 kg BP: 134/61 RVIDd: 2.7 cm (< 3.3) IVSd: 1.2 cm (0.6 - 1.1) LVIDd: 4.5 cm (3.9 - 5.3) LVPWd: 0.9 cm (0.6 - 1.1) IVSs: 1.4 cm LVIDs: 3.3 cm LVPWs: 1.2 cm LA Diam: 6.2 cm (2.7 - 3.8) LAESV Index (A-L): 64.54 ml/m Ao Diam: 3.0 cm (2.0 - 3.7) AV Cusp: 1.4 cm (1.5 - 2.6) LA Diam: 5.0 cm (2.7 - 3.8) MV EXCURSION: 12.451 mm (> 18.000) MV EF SLOPE: 38 mm/s (70 - 150) EPSS: 0.5 cm MV E Prosper: 2.04 m/s MV DecT: 340 ms MV A Prosper: 1.83 m/s MV E/A Ratio: 1.12 AR PHT: 349 ms RAP: 5.00 mmHg RVSP: 62.83 mmHg FINDINGS -------- Sinus rhythm. This was a technically adequate study. The left ventricular size is normal. There is mild concentric left ventricular hypertrophy. Overa ll left ventricular systolic function is low-normal with, an EF between 50 - 55 %. The right ventricle is normal in size. LA is severely dilated >40 ml/m2 The right atrial size is normal. There is mild aortic valve sclerosis. There is mild aortic regurgitation. Moderate mitral annular calcification present. Brcf-sq-dfmxtyvt mitral regurgitation is present. The peak and mean MV gradients are 24.87mmHg 13.31mmHg as measured by doppler. Tvgzdjdf-gn-mwkdac mitral stenosis , with a MVA of 1.4cm (by PHT) Mild tricuspid regurgitation present. There is moderate pulmonary hypertension. The right ventric ular systolic pressure, as measured by Doppler, is 62.83mmHg. Trace/mild (physiologic) pulmonic regurgitation. The aortic root size is normal. There is no pericardial effusion. CONCLUSIONS -------- 1. The left ventricular size is normal. 2. There is mild concentric left ventricular hypertrophy. 3. Overall left ventricular systolic function is low-normal with, an EF between 50 - 55 %. 4. LA is severely dilated >40 ml/m2 5. There is mild aortic valve sclerosis. 6. There is mild aortic regurgitation. 7. Moderate mitral annular calcification present. 8. Namv-ks-hrsuqafe mitral regurgitation is present. 9. The peak and mean MV gradients are 24.87mmHg 13.31mmHg as measured by doppler. 10. Kpsbovxv-hj-zoimvs mitral stenosis. 11. , with a MVA of 1.4cm (by PHT) 12. Mild tricuspid regurgitation present. 13. There is moderate pulmonary hypertension. 14. The right ventricular systolic pressure, as measured by Doppler, is 62.83mmHg. 15. Trace/mild (physiologic) pulmonic regurgitation. 16. The aortic root size is normal. 17. There is no pericardial effusion. [employer] REPRESENTATIVE: Lindsey Morgan RDCS
--- NOTE | 2017-03-03 11:08 | XR ---
EXAMINATION TYPE: XR chest 1V portable DATE OF EXAM: 03/03/2017 COMPARISON: 03/01/2017 HISTORY: Pulmonary edema and chemotherapy. Shortness of breath. TECHNIQUE: Single frontal view of the chest is obtained. FINDINGS: There are increasing opacities at the lung bases with obscuration of the costophrenic angl es and hemidiaphragms as well as opacification of the retrocardiac airspace. Mild pulmonary vascular congestion is present. Mediport is unchanged in position with its distal tip terminating in the super ior vena cava. Cardiac silhouette is enlarged. Left axillary and left breast surgical clips are redem onstrated. Moderate multilevel degenerative changes of the thoracic spine and glenohumeral joints are seen. IMPRESSION: Increasing bibasilar opacities and pleural effusions, small on the right and moderate on the left. Opacities may represent atelectasis, confluent pulmonary edema or pneumonia in the appropr iate clinical setting.
[2017-03-03 11:31] LABS: Poikilocytosis (M) Present
[2017-03-03] MEDS: PIPERACILLIN-TAZOBACTAM 3.375 GM in DEXTROSE/WATER 1 50ML.BAG IVPB SCH ×2 (11:41→20:10)
--- NOTE | 2017-03-03 13:05 | P.PN ---
Subjective Progress Note Date: 03/03/17 Principal diagnosis: acute hypoxic respiratory failure secondary to congestive heart failure, diastolic in nature, secondary to valvular heart disease. 81-year-old female patient, known history of breast cancer currently undergoing systemic chemotherapy, presented to the ED for increased shortness of breath. The patient was getting progressively more dyspneic over the past 2-3 days. No cough. No sputum production. No fever or chills. No pleurisy. She reported orthopnea. She also reported progressive increase in lower extremity edema. She was chronic atrial fibrillation and she is on anticoagulation with warfarin and she uses digoxin for rate control. She also has history of mitral stenosis. Her chest x-ray was consistent with acute CHF/pulmonary edema. The patient was started on IV Lasix. She has diuresed adequately and she is already feeling better. No new complaints otherwise for now. She seems to be quite fatigued and she is expressing significant amount of side effects from systemic chemotherapy including her last weakness, diminished appetite and alopecia. Her concerns of troponin was 0.047. BNP level was at 1700. She has also chronic renal failure. Creatinine is at 1.28 which is improved Patient was reevaluated today on 03/03/2017, continues to have shortness of breath , felt better when she sat up in the chair, she was feeling much worse when she was laying flat. Echocardiogram was reviewed, chest x-ray is showing worsening right sided pleural effusion and possible pulmonary edema. CBC is showing pancytopenia with low WBC count of 0.6 hemoglobin is 8.1 and platelets are 63, 000.patient is being followed by oncology.after reviewing the chest x-ray today , recommended increasing the Lasix, and after reviewing the WBC count, I added Zosyn in addition to her Levaquin which was initiated on admission. Objective - Vital Signs Vital signs: Vital Signs Temp 96.8 F L 03/03/17 12:00 Pulse 85 03/03/17 12:00 Resp 18 03/03/17 12:00 BP 125/60 03/03/17 12:00 Pulse Ox 98 03/03/17 12:00 Intake & Output 03/02/17 03/03/17 03/03/17 18:59 06:59 18:59 Intake Total 960 24 Output Total 2775 1300 Balance -1815 -1276 Weight 71.8 kg 71.8 kg Intake: IV 24 0.9 20 Furosemide 4 Oral 960 Output: Urine 2024 1300 Post Void Residual 750 Other: Voiding Method Indwelling Catheter Indwelling Catheter Indwelling Catheter # Voids 0 # Bowel Movements 1 - Exam Debilitated, comfortable not in distress.Head exam was generally normal. There was no scleral icterus or corneal arcus. Mucous membranes were moist. Patient has alopecia related to systemic chemotherapy.Neck was supple and without jugular venous distension, thyromegaly, or carotid bruits. Carotids were easily palpable bilaterally. There was no adenopathy. There is positive JVDs and there is no goiter or neck masses this point. Lung sounds are diminished and there is crackles at lung bases bilaterally. Heart sounds are irregular, positive S1-S2 and there is no significant murmurs appreciated.Abdominal exam revealed normal bowel sounds. The abdomen was soft, non-tender, and without masses, organomegaly, or appreciable enlargement of the abdominal aorta. Extremities reveal +1 pitting edema which is improving. No cyanosis or clubbing at this point.Examination of the skin revealed no evidence of significant rashes, suspicious appearing nevi or other concerning lesions. Neurologically the patient is awake and alert and there is no focal neurological deficit at this point. The patient has a Mediport over the left anterior chest area and the site is dry clean and intact at this point. - Labs CBC & Chem 7: 03/03/17 05:49 03/03/17 05:49 Labs: Abnormal Lab Results - Last 24 Hours (Table) 03/03/17 03/03/17 03/03/17 Range/Units 05:49 05:49 05:49 WBC 0.6 L* (3.8-10.6) k/uL RBC 2.74 L (3.80-5.40) m/uL Hgb 8.1 L (11.4-16.0) gm/dL Hct 25.9 L (34.0-46.0) % RDW 18.1 H (11.5-15.5) % Plt Count 63 L (150-450) k/uL PT 17.1 H (9.0-12.0) sec INR 1.9 H (<1.2) Sodium 147 H (137-145) mmol/L Potassium 3.4 L (3.5-5.1) mmol/L Carbon Dioxide 31 H (22-30) mmol/L BUN 55 H (7-17) mg/dL Creatinine 1.41 H (0.52-1.04) mg/dL Glucose 157 H (74-99) mg/dL Total Bilirubin 1.4 H (0.2-1.3) mg/dL ALT 65 H (9-52) U/L Total Protein 4.8 L (6.3-8.2) g/dL Albumin 2.8 L (3.5-5.0) g/dL Microbiology - Last 24 Hours (Table) 03/01/17 06:58 Blood Culture - Preliminary Blood No Growth after 48 hours Assessment and Plan Assessment: 1 acute CHF with pulmonary edema. The patient is responding nicely to diuretics.echocardiogram showed good LV function, but suspect there may be a component of valvular heart disease with severe mitral stenosis, pulmonary hypertension was noted, and I suspect some component of diastolic dysfunction. 2 acute hypoxic respiratory failure secondary to above, improving 3 chronic atrial fibrillation 4 valvular heart disease with mitral stenosis 5 chronic renal failure, creatinine is stable 6 breast cancer currently undergoing systemic chemotherapy 7 skin cancer, history of 8 gout 9 chronic anemia, multifactorial, normocytic 10pancytopenia him a chemotherapy induced, we will broaden the spectrum of antibiotics, and oncology to evaluate. Recommendation: Continue present treatment plan, chest x-ray was reviewed, I would order an ultrasound of the right chest, may even consider thoracentesis if the ultrasound shows significant effusion to be drained. The purpose of that thoracentesis would be therapeutic and diagnostic at the same time. Time with Patient: Less than 30
--- NOTE | 2017-03-03 14:10 | US ---
EXAMINATION TYPE: US chest DATE OF EXAM: 03/03/2017 COMPARISON: CXR CLINICAL HISTORY: Markings for thoracentesis by pulmonary staff. SOB, abnormal CXR EXAM MEASUREMENTS: Right Pleural Effusion fluid pocket: 9.9 cm Right skin to fluid thickness: 5.1 cm Lung Prominent in image Right side marked for possible thoracentesis outside the dept. Pulmonologists are able to review the images in the patient?s EMR. IMPRESSIONS: Partial visualization of the right pleural effusion as measured above.
[2017-03-03] MEDS ORDERED: POTASSIUM CHLORIDE ER 20 MEQ TAB.ER PO STA (15:37)
[2017-03-03] MEDS: WARFARIN 2.5 MG TAB PO SCH (15:53)
--- NOTE | 2017-03-03 15:58 | P.PN ---
Subjective Progress Note Date: 03/03/17 this is a 81-year-old female with complex past medical history detailed below significant for underlying breast cancer on chemotherapy. Patient presented to the emergency room with worsening shortness of breath and fatigue. Patient said that her last chemo was approximately 2 weeks ago. She said that the chemo is making her fatigued. For the past 2 or 3 days patient noted worsening shortness of breath and lower extremity edema. She denies any cough. No fevers or chills. No orthopnea. Patient said that she is known to have heart failure and usually follow-up with cardiology. She is also known to have underlying A. fib and is on anticoagulation with Coumadin. Patient was evaluated in the emergency room and was found to have evidence of fluid overload. BNP was slightly elevated. Patient was started on IV Lasix and admitted to the hospital for further evaluation. 03/03/2017 patient is sitting up in bedside chair. Reports some improvement in her shortness of breath. Patient was unable to have VQ scan completed because she could not lay flat. Her white count has continued to drop to 0.6 and platelets are 63. Patient reports that she does not want to have any further chemotherapy treatments. However she does want to continue to receive treatment for her other medical issues. She reports that the chemotherapy is making her very fatigued and sick. Oncology will be through to evaluate patient. Case was discussed with both patient and her son. Antibiotics adjusted per pulmonar,y Zosyn was added on top of the Levaquin. Pulmonary ordered a chest ultrasound Objective - Vital Signs Vital signs: Vital Signs Temp 96.8 F L 03/03/17 12:00 Pulse 92 03/03/17 13:08 Resp 18 03/03/17 12:00 BP 125/60 03/03/17 12:00 Pulse Ox 98 03/03/17 12:00 Intake & Output 03/02/17 03/03/17 03/03/17 18:59 06:59 18:59 Intake Total 960 24 Output Total 2775 1300 Balance -1815 -1276 Weight 71.8 kg 71.8 kg Intake: IV 24 0.9 20 Furosemide 4 Oral 960 Output: Urine 2024 1300 Post Void Residual 750 Other: Voiding Method Indwelling Catheter Indwelling Catheter Indwelling Catheter # Voids 0 # Bowel Movements 1 - Exam Head normocephalic Neck supple Lungs clear to auscultation bilaterally no wheezing or crackles Heart regular rate and rhythm S1-S2, no rub or gallop Abdomen is soft nontender nondistended positive bowel sounds no hepatosplenomegaly Extremities no edema Neuro alert and orientated to 3 - Labs CBC & Chem 7: 03/03/17 05:49 03/03/17 05:49 Labs: Abnormal Lab Results - Last 24 Hours (Table) 03/03/17 03/03/17 03/03/17 Range/Units 05:49 05:49 05:49 WBC 0.6 L* (3.8-10.6) k/uL RBC 2.74 L (3.80-5.40) m/uL Hgb 8.1 L (11.4-16.0) gm/dL Hct 25.9 L (34.0-46.0) % RDW 18.1 H (11.5-15.5) % Plt Count 63 L (150-450) k/uL PT 17.1 H (9.0-12.0) sec INR 1.9 H (<1.2) Sodium 147 H (137-145) mmol/L Potassium 3.4 L (3.5-5.1) mmol/L Carbon Dioxide 31 H (22-30) mmol/L BUN 55 H (7-17) mg/dL Creatinine 1.41 H (0.52-1.04) mg/dL Glucose 157 H (74-99) mg/dL Total Bilirubin 1.4 H (0.2-1.3) mg/dL ALT 65 H (9-52) U/L Total Protein 4.8 L (6.3-8.2) g/dL Albumin 2.8 L (3.5-5.0) g/dL Microbiology - Last 24 Hours (Table) 03/01/17 06:58 Blood Culture - Preliminary Blood No Growth after 48 hours Assessment and Plan Assessment: 1. Acute diastolic congestive heart failure exacerbation with pulmonary edema. Echo shows an EF of 50-55%, moderate to severe mitral stenosis and moderate pulmonary hypertension. Continue IV Lasix. Cardiology has adjusted medications. They've discontinued Norvasc and digoxin and increased her beta sotero. 2. Acute hypoxic respiratory failure secondary to CHF exacerbation 3. Chronic persistent atrial fibrillation: Continue Coumadin. Monitor closely due to patient's thrombocytopenia. We'll await further recommendations per cardiology and oncology about possibly discontinuing Coumadin due to the thrombocytopenia and high risk of bleeding 4. Pancytopenia most likely chemotherapy-induced 5. Obstructive uropathy status post Dill catheter insertion 6. Right breast cancer had been receiving chemotherapy. Patient expressed that she does not want any further chemotherapy treatment. Oncology will be consulted to discuss this further I performed an examination of the patient and discussed their management with the physician Hospital Unit Clerk. I have reviewed the Physician Hospital Unit Clerk's notes and agree with the documented findings and plan of care
[2017-03-03] MEDS: ATORVASTATIN 10 MG TAB PO SCH (20:10)
--- NOTE | 2017-03-03 22:06 | P.CONS ---
History of Present Illness - Reason for Consult Consult date: 03/03/17 breast cancer,on chemo Requesting physician: César John - Chief Complaint GAYE, SOB - History of Present Illness Mrs. Raines is a very pleasant female patient of Dr. Roman who presented in June 2015 with abnormal mammogram, changes at 3 O'clock of left breast, needle core biopsy 07/12/15 revealed intraductal pailloma with atypical ductal hyperplasia, wire localization and excisional biopsy on 07/26/15 revealing Grade II invasive ductal carcinoma, she then had L mastectomy on 08/18/15 revealing multifocal DCIS with small areas of invasion, 2/5 SLN had isolated tumor cells, all margins negative, ER/NJ were 90%/80% and Goc9tyr negative, she was started on arimidex, which she quit 3 mo later due to arthralgias. She did not follow up until 12/05/16 with c/o enlarging right axillary mass X 3 months, rapidly increasing in size, axillary biopsy positive for metastatic high-grade invasive ductal carcinoma, triple negative, U/S of breast showed 5 X 7 mm lesion , staging PET right axillary mass uptake, no other mets. Started TC with neulasta in early Dec, she had 3rd cycle about 5 days ago. patient had complaints of progressive difficulty in breath, denied fevers, has mild oral irritation, bad taste in her mouth, poor appetite, no sore throat, occasional cough, nonproductive, mild nausea but no vomiting, abdominal pain or cramping, dysuria, hematuria, diarrhea or constipation, skin changes or stable, denies any acute pain, she is anxious and tired. Review of Systems 10 point ROS as stated in HPI Past Medical History Past Medical History: Atrial Fibrillation, Cancer, Heart Failure, Hyperlipidemia , Hypertension, Pneumonia, Skin Disorder Additional Past Medical History / Comment(s): breast cancer diagnosed July 2015 with masectomy, skin cancer, vertigo, mitral valve stenosis, chronic atrial fibrillation, gout ,incontinent of urine, right lymph positve for breast ca in November 2016, chronic renal failure History of Any Multi-Drug Resistant Organisms: MRSA Year Discovered:: 05/12/2014 MDRO Source:: R first finger and sputum Past Surgical History: Breast Surgery, Hysterectomy, Joint Replacement Additional Past Surgical History / Comment(s): CORE BX LT BREAST, RT KNEE REPLACEMENT, RT INDEX FINGER DEBRIDEMENT,SKIN GRAFTRT FIRST FINGER, MULT SKIN CA REMOVED,CATHERINE CAT. lt breast mastectomy due to ca with lymph node removal july 2015 Past Anesthesia/Blood Transfusion Reactions: Motion Sickness Additional Past Anesthesia/Blood Transfusion Reaction / Comm: TAKES LONG TIME TO WAKE UP FROM ANESTHESIA,NO PROBLEMS WITH PRIOR BLOOD TRANSFUSIONS Past Psychological History: Anxiety Smoking Status: Never smoker Past Alcohol Use History: None Reported Past Drug Use History: None Reported - Past Family History Brother(s) Family Medical History: Cancer Additional Family Medical History / Comment(s): BRAIN CANCER,HEART PROBLEMS Father Family Medical History: Renal Disease Mother Family Medical History: Myocardial Infarction (CT) Medications and Allergies Home Medications Medication Instructions Recorded Confirmed Type Digoxin [Lanoxin] 125 mcg PO QAM 01/14/14 03/01/17 History Simvastatin [Zocor] 20 mg PO HS 01/14/14 03/01/17 History amLODIPine [Norvasc] 2.5 mg PO QAM 01/14/14 03/01/17 History Furosemide [Lasix] 40 mg PO BID@0900,1600 #60 tab 01/24/14 03/01/17 Rx Metoprolol Tartrate [Lopressor] 25 mg PO BID #60 tab 01/24/14 03/01/17 Rx Potassium Chloride ER [K-Dur 10] 10 meq PO DAILY #30 tab.er.prt 01/24/14 Rx Warfarin [Coumadin] 2.5 mg PO DAILY 05/04/14 03/01/17 History ALPRAZolam [Xanax] 0.25 mg PO BID PRN 05/12/14 03/01/17 History Mirabegron [Myrbetriq] 25 mg PO DAILY 12/10/16 03/01/17 History Allopurinol [Zyloprim] 100 mg PO DAILY 03/01/17 03/01/17 History Meclizine [Antivert] 25 mg PO TID PRN 03/01/17 03/01/17 History Allergies Allergy/AdvReac Type Severity Reaction Status Date / Time No Known Allergies Allergy Verified 03/01/17 11:17 Physical Exam Vitals: Vital Signs Temp Pulse Pulse Resp BP Pulse Ox 03/03/17 16:39 90 03/03/17 16:25 84 03/03/17 16:00 96.5 F L 96 18 121/66 98 03/03/17 13:08 92 03/03/17 12:58 88 03/03/17 12:00 96.8 F L 85 18 125/60 98 03/03/17 08:41 100 03/03/17 08:32 100 03/03/17 08:29 94 L 03/03/17 08:00 96.2 F L 101 H 18 130/58 96 03/03/17 06:14 112 H 18 93 L 03/03/17 05:59 92 L 03/03/17 04:19 88 03/03/17 03:59 96 03/03/17 03:14 97.5 F L 100 18 134/61 92 L 03/03/17 00:00 84 03/02/17 23:45 92 03/02/17 23:13 100 F H 94 18 121/57 95 03/02/17 19:59 96 03/02/17 19:42 98.4 F 101 H 18 158/67 93 L 03/02/17 19:40 120 H 30 H 84 L Intake and Output 03/03/17 03/03/17 03/03/17 06:59 14:59 22:59 Intake Total 10 200 Output Total 1300 800 Balance -1290 -600 Intake: IV 10 0.9 10 Oral 200 Output: Urine 1300 800 Other: Voiding Method Indwelling Catheter Indwelling Catheter Indwelling Catheter # Voids 0 Weight 71.8 kg 71.8 kg Patient Weight 03/04/17 06:59 Weight 71.8 kg - Constitutional General appearance: cooperative, mild distress, obese - EENT dry mucus membranes, no ulcers Eyes: EOMI - Neck right axillary 4-5cm lymphadenpathy, softer but firm, fixed to underlying tissue but not attached to chest wall - Respiratory Respiratory: bilateral: rales, wheezing - Cardiovascular Heart sounds: normal: S1, S2 leg Peripheral Edema: bilateral: None - Gastrointestinal General gastrointestinal: no absent bowel sounds, no decreased bowel sounds, no distended, no hepatomegaly, no hyperactive bowel sounds, normal bowel sounds, no organomegaly, no rigid, no scaphoid, soft, no splenomegaly, no tenderness, no umbilical hernia, no ventral hernia - Integumentary multiple skin lesions on the bilateral fforearms, skin is thickened, the lesions are fleshy, reddened, stable - Neurologic Neurologic: CNII-XII intact - Musculoskeletal Musculoskeletal: generalized weakness - Psychiatric patient is anxious Psychiatric: A&O x's 3, intact judgment & insight Results CBC & Chem 7: 03/03/17 05:49 03/03/17 05:49 Labs: Abnormal Lab Results - Last 24 Hours (Table) 03/03/17 03/03/17 03/03/17 Range/Units 05:49 05:49 05:49 WBC 0.6 L* (3.8-10.6) k/uL RBC 2.74 L (3.80-5.40) m/uL Hgb 8.1 L (11.4-16.0) gm/dL Hct 25.9 L (34.0-46.0) % RDW 18.1 H (11.5-15.5) % Plt Count 63 L (150-450) k/uL PT 17.1 H (9.0-12.0) sec INR 1.9 H (<1.2) Sodium 147 H (137-145) mmol/L Potassium 3.4 L (3.5-5.1) mmol/L Carbon Dioxide 31 H (22-30) mmol/L BUN 55 H (7-17) mg/dL Creatinine 1.41 H (0.52-1.04) mg/dL Glucose 157 H (74-99) mg/dL Total Bilirubin 1.4 H (0.2-1.3) mg/dL ALT 65 H (9-52) U/L Total Protein 4.8 L (6.3-8.2) g/dL Albumin 2.8 L (3.5-5.0) g/dL Microbiology - Last 24 Hours (Table) 03/01/17 06:58 Blood Culture - Preliminary Blood No Growth after 48 hours Chest x-ray: report reviewed Assessment and Plan (1) Triple negative malignant neoplasm of breast Narrative/Plan: Patient is currently status post 3 of 4 cycles of TC with Neulasta, given Feb 26, plans are for neoadjuvant treatment and surgical resection after 4 cycles, patient has the potential to be cured. I encouraged patient not to make treatment decisions until she is feeling better. I did let her know that dose adjustments can be very helpful in reducing side effects, also we could delay's treatment, and I promised her that I would talk to her about possibly being evaluated for surgery now. She agreed to wait to make treatment decisions until we have some options reviewed and she is feeling better. All of patient's questions were answered to her satisfaction. She will follow up with her primary Oncologist after discharge. No growth factors at this time, anticipate WBC response in the next 3-5 days, no need for PRBC or platelet transfusions at this time, CBC daily, conservative transfusions as needed. 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
[2017-03-04] MEDS: IPRATROPIUM-ALBUTEROL 3 ML NEB INHALATION SCH ×6 (03:45→23:44)
[2017-03-04 06:37] LABS: Anisocytosis Slight; HCT 23.2 % (34.0-46.0); HGB 7.6 gm/dL (11.4-16.0); MCHC 32.6 g/dL (31.0-37.0); MCV 92.3 fL (80.0-100.0); Mean Platelet Volume 9.6; RBC 2.52 m/uL (3.80-5.40)
[2017-03-04 06:43] LABS: INR 2.1 (<1.2); Prothrombin Time 19.1 sec (9.0-12.0)
[2017-03-04 06:51] LABS: Platelet Count 90 k/uL (150-450); WBC 0.6 k/uL (3.8-10.6)
[2017-03-04 06:59] LABS: Albumin 2.4 g/dL (3.5-5.0); Calcium 9.5 mg/dL (8.4-10.2); Potassium 3.7 mmol/L (3.5-5.1); Total Bilirubin 1.4 mg/dL (0.2-1.3); Total Protein 4.5 g/dL (6.3-8.2)
[2017-03-04] MEDS: NON-FORMULARY DRUG (Mirabegron [Myrbetriq] 25 MG) PO SCH (09:09)
[2017-03-04] MEDS: PIPERACILLIN-TAZOBACTAM 3.375 GM in DEXTROSE/WATER 1 50ML.BAG IVPB SCH ×2 (09:22→22:00)
[2017-03-04] MEDS: METOPROLOL TARTRATE 25 MG TAB PO SCH ×3 (09:23→22:01)
[2017-03-04] MEDS: FUROSEMIDE 10 MG/ML 4 ML VIAL IV SCH ×2 (09:23→15:46)
[2017-03-04] MEDS: ALLOPURINOL 100 MG TAB PO SCH (09:23)
[2017-03-04] MEDS: POTASSIUM CHLORIDE ER 10 MEQ TAB.ER.PRT PO SCH (09:23)
[2017-03-04] MEDS ORDERED: PHYTONADIONE ORAL 5 MG/5 ML ORAL.SYRG PO STA (10:57)
--- NOTE | 2017-03-04 11:01 | P.PN ---
Subjective Progress Note Date: 03/04/17 Principal diagnosis: Acute hypoxic respiratory failure secondary to congestive heart failure, diastolic in nature, secondary to valvular heart disease. Breast cancer recurrent. Right pleural effusion 81-year-old female patient, known history of breast cancer currently undergoing systemic chemotherapy, presented to the ED for increased shortness of breath. The patient was getting progressively more dyspneic over the past 2-3 days. No cough. No sputum production. No fever or chills. No pleurisy. She reported orthopnea. She also reported progressive increase in lower extremity edema. She was chronic atrial fibrillation and she is on anticoagulation with warfarin and she uses digoxin for rate control. She also has history of mitral stenosis. Her chest x-ray was consistent with acute CHF/pulmonary edema. The patient was started on IV Lasix. She has diuresed adequately and she is already feeling better. No new complaints otherwise for now. She seems to be quite fatigued and she is expressing significant amount of side effects from systemic chemotherapy including her last weakness, diminished appetite and alopecia. Her concerns of troponin was 0.047. BNP level was at 1700. She has also chronic renal failure. Creatinine is at 1.28 which is improved Patient was reevaluated today on 03/03/2017, continues to have shortness of breath , felt better when she sat up in the chair, she was feeling much worse when she was laying flat. Echocardiogram was reviewed, chest x-ray is showing worsening right sided pleural effusion and possible pulmonary edema. CBC is showing pancytopenia with low WBC count of 0.6 hemoglobin is 8.1 and platelets are 63, 000.patient is being followed by oncology.after reviewing the chest x-ray today , recommended increasing the Lasix, and after reviewing the WBC count, I added Zosyn in addition to her Levaquin which was initiated on admission. The patient is seen again today 03/04/2017 in follow-up on the selective care unit. She is currently sitting up in the chair at the bedside. She is awake and alert in no acute distress. She is still quite short of breath with minimal exertion. Wound of the right chest revealed a significant pleural effusion measuring 9.9 cm. She is requiring 12 L of high flow nasal cannula to maintain O2 saturations in the 90s. She is maintained on bronchodilators, antibiotics in the form of Levaquin and Zosyn, IV diuretics. Echocardiogram revealed preserved left ventricular systolic function with ejection fraction 50- 55%. There is moderate to severe mitral stenosis and moderate pulmonary hypertension. She's been afebrile. Hemodynamically stable. The culture reveals no growth. White count 0.6. Hemoglobin 7.6. Platelet count 90,000. INR 2.1. Objective - Vital Signs Vital signs: Vital Signs Temp 96.7 F L 03/04/17 08:00 Pulse 95 03/04/17 08:00 Resp 16 03/04/17 08:00 BP 131/71 03/04/17 08:00 Pulse Ox 96 03/04/17 08:00 Intake & Output 03/03/17 03/04/17 03/04/17 18:59 06:59 18:59 Intake Total 200 Output Total 800 1900 Balance -600 -1900 Weight 71.8 kg 70 kg Intake: Oral 200 Output: Urine 800 1900 Other: Voiding Method Indwelling Catheter Indwelling Catheter Indwelling Catheter # Voids 0 0 - Exam GENERAL EXAM: Alert, active, fairly comfortable in no apparent distress. HEAD: Normocephalic. Alopecia secondary to chemotherapy. EYES: Normal reaction of pupils, equal size. NOSE: Clear with pink turbinates. THROAT: No erythema or exudates. NECK: No masses, no JVD. CHEST: No chest wall deformity. LUNGS: Equal air entry with crackles in the right lung base. Diminished.. CVS: S1 and S2 normal with an audible murmur, irregular rhythm. ABDOMEN: No hepatosplenomegaly, normal bowel sounds, no guarding or rigidity. SPINE: No scoliosis or deformity SKIN: No rashes CENTRAL NERVOUS SYSTEM: No focal deficits, tone is normal in all 4 extremities. EXTREMITIES: There is no peripheral edema. No clubbing, no cyanosis. Peripheral pulses are intact. - Labs CBC & Chem 7: 03/04/17 06:10 03/04/17 06:10 Labs: Abnormal Lab Results - Last 24 Hours (Table) 03/04/17 03/04/17 03/04/17 Range/Units 06:10 06:10 06:10 WBC 0.6 L* (3.8-10.6) k/uL RBC 2.52 L (3.80-5.40) m/uL Hgb 7.6 L (11.4-16.0) gm/dL Hct 23.2 L (34.0-46.0) % RDW 19.0 H (11.5-15.5) % Plt Count 90 L (150-450) k/uL PT 19.1 H (9.0-12.0) sec INR 2.1 H (<1.2) Carbon Dioxide 34 H (22-30) mmol/L BUN 57 H (7-17) mg/dL Creatinine 1.60 H (0.52-1.04) mg/dL Glucose 109 H (74-99) mg/dL Total Bilirubin 1.4 H (0.2-1.3) mg/dL Total Protein 4.5 L (6.3-8.2) g/dL Albumin 2.4 L (3.5-5.0) g/dL Microbiology - Last 24 Hours (Table) 03/01/17 06:58 Blood Culture - Preliminary Blood No Growth after 72 hours Assessment and Plan Assessment: 1 acute diastolic CHF with pulmonary edema. The patient is responding nicely to diuretics. Echocardiogram showed good LV function, but suspect there may be a component of valvular heart disease with severe mitral stenosis, pulmonary hypertension was noted, and I suspect some component of diastolic dysfunction. 2 acute hypoxic respiratory failure secondary to above, improving 3 chronic atrial fibrillation him a anticoagulated with warfarin. 4 valvular heart disease with moderate to severe mitral stenosis 5 chronic renal failure, creatinine is stable 6 breast cancer currently undergoing systemic chemotherapy 7 skin cancer, history of 8 gout 9 chronic anemia, multifactorial, normocytic 10 pancytopenia secondary to chemotherapy, we will broaden the spectrum of antibiotics, and oncology to evaluate. Plan: The patient was seen and evaluated by Dr. Harman. Her chest x-ray and ultrasound were reviewed. We will hold her dose of warfarin today and repeat the INR in the a.m. Plan for thoracentesis done. We'll continue with her current medications. We'll increase her activity as tolerated. We'll continue to follow. I, the cosigning physician, have performed a history and physical examination on the patient. Lung sounds have crackles in the right lower lung, diminished. Maintaining good O2 saturations in the 12 L high flow nasal cannula.. I have discussed the assessment and plan of care with my nurse practitioner, Tamia Landeros. I attest the above documented note as dictated by her.
--- NOTE | 2017-03-04 12:48 | P.PN ---
Subjective Progress Note Date: 03/04/17 this is a 81-year-old female with complex past medical history detailed below significant for underlying breast cancer on chemotherapy. Patient presented to the emergency room with worsening shortness of breath and fatigue. Patient said that her last chemo was approximately 2 weeks ago. She said that the chemo is making her fatigued. For the past 2 or 3 days patient noted worsening shortness of breath and lower extremity edema. She denies any cough. No fevers or chills. No orthopnea. Patient said that she is known to have heart failure and usually follow-up with cardiology. She is also known to have underlying A. fib and is on anticoagulation with Coumadin. Patient was evaluated in the emergency room and was found to have evidence of fluid overload. BNP was slightly elevated. Patient was started on IV Lasix and admitted to the hospital for further evaluation. 03/03/2017 patient is sitting up in bedside chair. Reports some improvement in her shortness of breath. Patient was unable to have VQ scan completed because she could not lay flat. Her white count has continued to drop to 0.6 and platelets are 63. Patient reports that she does not want to have any further chemotherapy treatments. However she does want to continue to receive treatment for her other medical issues. She reports that the chemotherapy is making her very fatigued and sick. Oncology will be through to evaluate patient. Case was discussed with both patient and her son. Antibiotics adjusted per pulmonar,y Zosyn was added on top of the Levaquin. Pulmonary ordered a chest ultrasound 03/04/2017 patient still having some shortness of breath. Chest ultrasound had shown a 9.9 cm right pleural effusion. Pulmonary service is planning on doing a thoracentesis tomorrow. Coumadin has been placed on hold. Patient denies any chest pain. Denies any nausea or vomiting. Denies bowel movement changes. Has Dill catheter in place. Creatinine has increased from 1.41-1.61. Patient is being diuresed with IV Lasix Objective - Vital Signs Vital signs: Vital Signs Temp 96.7 F L 03/04/17 08:00 Pulse 95 03/04/17 08:00 Resp 16 03/04/17 08:00 BP 131/71 03/04/17 08:00 Pulse Ox 96 03/04/17 08:00 Intake & Output 03/03/17 03/04/17 03/04/17 18:59 06:59 18:59 Intake Total 200 Output Total 800 1900 Balance -600 -1900 Weight 71.8 kg 70 kg Intake: Oral 200 Output: Urine 800 1900 Other: Voiding Method Indwelling Catheter Indwelling Catheter Indwelling Catheter # Voids 0 0 - Exam Head normocephalic Neck supple Lungs clear to auscultation bilaterally no wheezing or crackles Heart regular rate and rhythm S1-S2, no rub or gallop Abdomen is soft nontender nondistended positive bowel sounds no hepatosplenomegaly Extremities leg swelling bilaterally Neuro alert and orientated to 3 - Labs CBC & Chem 7: 03/04/17 06:10 03/04/17 06:10 Labs: Abnormal Lab Results - Last 24 Hours (Table) 03/04/17 03/04/17 03/04/17 Range/Units 06:10 06:10 06:10 WBC 0.6 L* (3.8-10.6) k/uL RBC 2.52 L (3.80-5.40) m/uL Hgb 7.6 L (11.4-16.0) gm/dL Hct 23.2 L (34.0-46.0) % RDW 19.0 H (11.5-15.5) % Plt Count 90 L (150-450) k/uL PT 19.1 H (9.0-12.0) sec INR 2.1 H (<1.2) Carbon Dioxide 34 H (22-30) mmol/L BUN 57 H (7-17) mg/dL Creatinine 1.60 H (0.52-1.04) mg/dL Glucose 109 H (74-99) mg/dL Total Bilirubin 1.4 H (0.2-1.3) mg/dL Total Protein 4.5 L (6.3-8.2) g/dL Albumin 2.4 L (3.5-5.0) g/dL Microbiology - Last 24 Hours (Table) 03/01/17 06:58 Blood Culture - Preliminary Blood No Growth after 72 hours Assessment and Plan Assessment: 1. Acute diastolic congestive heart failure exacerbation with pulmonary edema. Echo shows an EF of 50-55%, moderate to severe mitral stenosis and moderate pulmonary hypertension. Continue IV Lasix. Cardiology has adjusted medications. They've discontinued Norvasc and digoxin and increased her beta sotero. 2. Acute hypoxic respiratory failure secondary to CHF exacerbation 3. Chronic persistent atrial fibrillation: Continue Coumadin. Monitor closely due to patient's thrombocytopenia. Appreciate oncology's input. The recommending to continue the Coumadin as long as platelets are above 50,000 4. Pancytopenia most likely chemotherapy-induced. Currently on broad-spectrum antibiotics per pulmonary service 5. Obstructive uropathy status post Dill catheter insertion 6. Right breast cancer had been receiving chemotherapy. Patient expressed that she does not want any further chemotherapy treatment. Oncology following and appreciate their input 7. Right pleural effusion: Patient scheduled for right-sided thoracentesis tomorrow. Coumadin on hold for procedure. 8. chronic kidney disease, stage III. Creatinine is 1.60. Monitor closely while on diuretics I performed an examination of the patient and discussed their management with the physician Commanding [employer]. I have reviewed the Physician Commanding [employer]'s notes and agree with the documented findings and plan of care
--- NOTE | 2017-03-04 15:03 | P.PN ---
Subjective Progress Note Date: 03/04/17 Principal diagnosis: CHF This is a pleasant 81-year-old female who follows regularly with in the office. She has a known history of hypertension, diabetes, hyperlipidemia, mitral stenosis, chronic persistent atrial fibrillation, patient also has breast cancer for which she is currently undergoing chemotherapy. She presents to the hospital with symptoms of progressively worsening shortness of breath with associated peripheral edema. According to the patient, each time she gets chemotherapy she gets quite short of breath, and has associated swelling. She states that she just had her third treatment of chemo, and does not wish to have any further chemo treatments. EKG on admission here shows atrial fibrillation with rapid ventricular response. Chest x-ray shows bibasilar airspace disease with small bilateral effusions and vascular congestion. Blood pressure on arrival here 153/106 with a heart rate in the 90s, 94% on room air. Blood pressure this morning 134/60, she is 93% on 12l high flow. White blood cell count on admission 14.5, 3.2 this morning. Hemoglobin 8.3, platelet count 66. INR on admission 4.2, 1.9 this morning. Sodium 147, potassium 3.4, BUN 55, creatinine 1.4. AST and ALT mildly elevated on admission, coming down. Troponin 0.047. BNP 1700. At the time of my examination this morning, patient is still quite short of breath, she does state that her edema is improving. She feels extremely fatigued, has no appetite. 03/04/2017 Patient seen and examined today, sitting up in the chair, complains of feeling very tired, breathing overall is better. Weight is down almost 2 kg today, BUN 57, creatinine 1.6, INR 2.1. Hemoglobin 7.6, platelet count 90. Echocardiogram with Doppler study was performed which revealed an ejection fraction of 50-55%, LA is severely dilated, mild to moderate mitral regurg and moderate pulmonary hypertension. Objective - Vital Signs Vital signs: Vital Signs Temp 99.0 F 03/04/17 12:00 Pulse 94 03/04/17 12:00 Resp 18 03/04/17 12:00 BP 127/58 03/04/17 12:00 Pulse Ox 96 03/04/17 12:00 Intake & Output 03/03/17 03/04/17 03/04/17 18:59 06:59 18:59 Intake Total 200 14 Output Total 800 1900 Balance -600 -1900 14 Weight 71.8 kg 70 kg Intake: IV 14 0.9 10 Furosemide 4 Oral 200 Output: Urine 800 1900 Other: Voiding Method Indwelling Catheter Indwelling Catheter Indwelling Catheter # Voids 0 0 - Exam PHYSICAL EXAMINATION: HEENT: Head is atraumatic, normocephalic. Pupils equal, round. Neck is supple. There is elevated jugular venous pressure. HEART EXAMINATION: Heart S1-S2 diastolic murmur is heard. CHEST EXAMINATION: Lungs reveal crackles to bilateral bases with diminished air entry to the bases. ABDOMEN: Soft, nontender. Bowel sounds are heard. No organomegaly noted. EXTREMITIES: 2+ peripheral pulses with 1-2+ evidence of peripheral edema and no calf tenderness noted. NEUROLOGIC patient is awake, alert and oriented -3. - Labs CBC & Chem 7: 03/04/17 06:10 03/04/17 06:10 Labs: Abnormal Lab Results - Last 24 Hours (Table) 03/04/17 03/04/17 03/04/17 Range/Units 06:10 06:10 06:10 WBC 0.6 L* (3.8-10.6) k/uL RBC 2.52 L (3.80-5.40) m/uL Hgb 7.6 L (11.4-16.0) gm/dL Hct 23.2 L (34.0-46.0) % RDW 19.0 H (11.5-15.5) % Plt Count 90 L (150-450) k/uL PT 19.1 H (9.0-12.0) sec INR 2.1 H (<1.2) Carbon Dioxide 34 H (22-30) mmol/L BUN 57 H (7-17) mg/dL Creatinine 1.60 H (0.52-1.04) mg/dL Glucose 109 H (74-99) mg/dL Total Bilirubin 1.4 H (0.2-1.3) mg/dL Total Protein 4.5 L (6.3-8.2) g/dL Albumin 2.4 L (3.5-5.0) g/dL Microbiology - Last 24 Hours (Table) 03/01/17 06:58 Blood Culture - Preliminary Blood No Growth after 72 hours Assessment and Plan Plan: Assessment and plan #1 congestive heart failure, acute on chronic. Likely diastolic in nature. Patient's most recent echo I have available was performed in 2013 at which time her ejection fraction was documented to be 50-55%. #2 right breast cancer, currently on chemotherapy #3 pancytopenia, likely secondary to chemo #4 chronic persistent atrial fibrillation, on Coumadin for anticoagulation, INR today 2.1. #5 hypertension #6 diabetes #7 hyperlipidemia Plan Echocardiogram with Doppler study was performed which revealed an ejection fraction of 50-55%, LA is severely dilated, moderate mitral regurg moderate to severe mitral stenosis. We will continue current dose of IV Lasix. DNP note has been reviewed, I agree with a documented findings and plan of care. Patient was seen and examined.
[2017-03-04 17:09] LABS: Iron Saturation 7.47 (12.00-45.00)
[2017-03-04] MEDS: ATORVASTATIN 10 MG TAB PO SCH (22:01)
[2017-03-05] MEDS: FUROSEMIDE 10 MG/ML 4 ML VIAL IV SCH ×3 (00:15→15:02)
[2017-03-05] MEDS: ALPRAZolam 0.25 MG TAB PO PRN ×2 (00:16→23:33)
[2017-03-05] MEDS: IPRATROPIUM-ALBUTEROL 3 ML NEB INHALATION SCH ×6 (03:48→23:29)
[2017-03-05 07:00] LABS: Anisocytosis Slight; HCT 24.6 % (34.0-46.0); HGB 7.8 gm/dL (11.4-16.0); MCH 30.1 pg (25.0-35.0); MCHC 31.8 g/dL (31.0-37.0); MCV 94.6 fL (80.0-100.0); Macrocytosis Slight; Mean Platelet Volume 10.1; Platelet Count 100 k/uL (150-450); RDW 19.1 % (11.5-15.5)
[2017-03-05 07:10] LABS: INR 1.4 (<1.2); Prothrombin Time 13.2 sec (9.0-12.0)
[2017-03-05 07:28] LABS: Albumin 2.4 g/dL (3.5-5.0); Calcium 9.1 mg/dL (8.4-10.2); Potassium 3.4 mmol/L (3.5-5.1); Total Bilirubin 1.6 mg/dL (0.2-1.3); Total Protein 4.4 g/dL (6.3-8.2)
--- NOTE | 2017-03-05 07:50 | XR ---
EXAMINATION TYPE: XR chest 1V portable DATE OF EXAM: 03/05/2017 HISTORY: Shortness of breath. COMPARISON: March 03, 2017 TECHNIQUE: Single view of the chest is submitted. FINDINGS: Demonstrated are scattered senescent parenchymal change. Bilateral pleural effusions are noted although appear to be improved. Patchy basilar infiltrates pers ist right greater than left. There is also a degree of pulmonary venous congestion. MediPort catheter is unchanged. The heart is stable. Hilar and mediastinal structures are within normal limits. Degenerative changes are seen of the dorsal spine. IMPRESSION: 1. Bilateral pleural effusions are noted although appear to be improved. Patchy basilar infiltrates persist right greater than left. There is also a degree of pulmonary venous congestion
[2017-03-05 08:19] LABS: Band Neutrophils % 11 %; Metamyelocytes # (M) 0.12 k/uL (0); Metamyelocytes % 4 %; Myelocytes # (M) 0.12 k/uL (0); Myelocytes % 4 %; Neutrophils % (M) 55 %; Nucleated Red Blood Cells 2 /100 WBC (0-0); Total Cells Counted 200
[2017-03-05 08:20] LABS: Lymphocytes # (M) 0.55 k/uL (1.0-4.8); Monocytes # (M) 0.23 k/uL (0-1.0); WBC 2.9 k/uL (3.8-10.6)
[2017-03-05 08:21] LABS: Poikilocytosis (M) Present
[2017-03-05] MEDS: METOPROLOL TARTRATE 25 MG TAB PO SCH ×3 (08:53→23:32)
[2017-03-05] MEDS: PIPERACILLIN-TAZOBACTAM 3.375 GM in DEXTROSE/WATER 1 50ML.BAG IVPB SCH ×2 (08:53→23:33)
[2017-03-05] MEDS: ALLOPURINOL 100 MG TAB PO SCH (08:54)
[2017-03-05] MEDS: POTASSIUM CHLORIDE ER 10 MEQ TAB.ER.PRT PO SCH (08:54)
[2017-03-05] MEDS ORDERED: LEVOFLOXACIN 750 MG TAB PO SCH (09:00)
[2017-03-05] MEDS: NON-FORMULARY DRUG (Mirabegron [Myrbetriq] 25 MG) PO SCH (09:02)
--- NOTE | 2017-03-05 10:26 | P.PN ---
Subjective Progress Note Date: 03/05/17 Principal diagnosis: Acute hypoxic respiratory failure secondary to congestive heart failure, diastolic in nature, secondary to valvular heart disease. Breast cancer recurrent. Right pleural effusion 81-year-old female patient, known history of breast cancer currently undergoing systemic chemotherapy, presented to the ED for increased shortness of breath. The patient was getting progressively more dyspneic over the past 2-3 days. No cough. No sputum production. No fever or chills. No pleurisy. She reported orthopnea. She also reported progressive increase in lower extremity edema. She was chronic atrial fibrillation and she is on anticoagulation with warfarin and she uses digoxin for rate control. She also has history of mitral stenosis. Her chest x-ray was consistent with acute CHF/pulmonary edema. The patient was started on IV Lasix. She has diuresed adequately and she is already feeling better. No new complaints otherwise for now. She seems to be quite fatigued and she is expressing significant amount of side effects from systemic chemotherapy including her last weakness, diminished appetite and alopecia. Her concerns of troponin was 0.047. BNP level was at 1700. She has also chronic renal failure. Creatinine is at 1.28 which is improved Patient was reevaluated today on 03/03/2017, continues to have shortness of breath , felt better when she sat up in the chair, she was feeling much worse when she was laying flat. Echocardiogram was reviewed, chest x-ray is showing worsening right sided pleural effusion and possible pulmonary edema. CBC is showing pancytopenia with low WBC count of 0.6 hemoglobin is 8.1 and platelets are 63, 000.patient is being followed by oncology.after reviewing the chest x-ray today , recommended increasing the Lasix, and after reviewing the WBC count, I added Zosyn in addition to her Levaquin which was initiated on admission. The patient is seen again today 03/04/2017 in follow-up on the selective care unit. She is currently sitting up in the chair at the bedside. She is awake and alert in no acute distress. She is still quite short of breath with minimal exertion. Wound of the right chest revealed a significant pleural effusion measuring 9.9 cm. She is requiring 12 L of high flow nasal cannula to maintain O2 saturations in the 90s. She is maintained on bronchodilators, antibiotics in the form of Levaquin and Zosyn, IV diuretics. Echocardiogram revealed preserved left ventricular systolic function with ejection fraction 50- 55%. There is moderate to severe mitral stenosis and moderate pulmonary hypertension. She's been afebrile. Hemodynamically stable. The culture reveals no growth. White count 0.6. Hemoglobin 7.6. Platelet count 90,000. INR 2.1. The patient is seen again today 03/05/2017 in follow-up on the selective care unit. She is awake and alert in no acute distress. She is breathing better today as compared to yesterday. Her chest x-ray was reviewed with Dr. Harman. There is improvement in the fluid of the right lung. No need for thoracentesis today. She is maintaining good O2 saturations now on 6 L high flow nasal cannula. She is afebrile. Hemodynamically stable. She remains in atrial fibrillation. We'll resume her warfarin today. White count 2.9. Hemoglobin 7.8. Creatinine is up to 1.69. Blood cultures revealed no growth. Objective - Vital Signs Vital signs: Vital Signs Temp 97.7 F 03/05/17 08:00 Pulse 85 03/05/17 08:00 Resp 19 03/05/17 08:00 BP 125/58 03/05/17 08:00 Pulse Ox 95 03/05/17 08:00 Intake & Output 03/04/17 03/05/17 03/05/17 18:59 06:59 18:59 Intake Total 854 180 Output Total 1400 1200 Balance -546 -1200 180 Weight 71 kg Intake: IV 14 0.9 10 Furosemide 4 Oral 840 180 Output: Urine 1400 1200 Other: Voiding Method Indwelling Catheter Indwelling Catheter Indwelling Catheter - Exam GENERAL EXAM: Alert, active, fairly comfortable in no apparent distress. HEAD: Normocephalic. Alopecia secondary to chemotherapy. EYES: Normal reaction of pupils, equal size. NOSE: Clear with pink turbinates. THROAT: No erythema or exudates. NECK: No masses, no JVD. CHEST: No chest wall deformity. LUNGS: Equal air entry with crackles in the right lung base. Diminished.. CVS: S1 and S2 normal with an audible murmur, irregular rhythm. ABDOMEN: No hepatosplenomegaly, normal bowel sounds, no guarding or rigidity. SPINE: No scoliosis or deformity SKIN: No rashes CENTRAL NERVOUS SYSTEM: No focal deficits, tone is normal in all 4 extremities. EXTREMITIES: There is no peripheral edema. No clubbing, no cyanosis. Peripheral pulses are intact. - Labs CBC & Chem 7: 03/05/17 06:50 03/05/17 06:50 Labs: Abnormal Lab Results - Last 24 Hours (Table) 03/04/17 03/05/17 03/05/17 Range/Units 06:10 06:50 06:50 WBC 2.9 L (3.8-10.6) k/uL RBC 2.60 L (3.80-5.40) m/uL Hgb 7.8 L (11.4-16.0) gm/dL Hct 24.6 L (34.0-46.0) % RDW 19.1 H (11.5-15.5) % Plt Count 100 L (150-450) k/uL Lymphocytes # (Manual) 0.55 L (1.0-4.8) k/uL Metamyelocytes # (Man) 0.12 H (0) k/uL Myelocytes # (Manual) 0.12 H (0) k/uL Nucleated RBCs 2 H (0-0) /100 WBC PT 13.2 H (9.0-12.0) sec INR 1.4 H (<1.2) Potassium (3.5-5.1) mmol/L Carbon Dioxide (22-30) mmol/L BUN (7-17) mg/dL Creatinine (0.52-1.04) mg/dL Glucose (74-99) mg/dL Iron 18 L (50-170) ug/dL Iron Saturation 7.47 L (12.00-45.00) Ferritin 1025.4 H (10.0-291.0) ng/mL Total Bilirubin (0.2-1.3) mg/dL Total Protein (6.3-8.2) g/dL Albumin (3.5-5.0) g/dL 03/05/17 Range/Units 06:50 WBC (3.8-10.6) k/uL RBC (3.80-5.40) m/uL Hgb (11.4-16.0) gm/dL Hct (34.0-46.0) % RDW (11.5-15.5) % Plt Count (150-450) k/uL Lymphocytes # (Manual) (1.0-4.8) k/uL Metamyelocytes # (Man) (0) k/uL Myelocytes # (Manual) (0) k/uL Nucleated RBCs (0-0) /100 WBC PT (9.0-12.0) sec INR (<1.2) Potassium 3.4 L (3.5-5.1) mmol/L Carbon Dioxide 34 H (22-30) mmol/L BUN 59 H (7-17) mg/dL Creatinine 1.69 H (0.52-1.04) mg/dL Glucose 106 H (74-99) mg/dL Iron (50-170) ug/dL Iron Saturation (12.00-45.00) Ferritin (10.0-291.0) ng/mL Total Bilirubin 1.6 H (0.2-1.3) mg/dL Total Protein 4.4 L (6.3-8.2) g/dL Albumin 2.4 L (3.5-5.0) g/dL Microbiology - Last 24 Hours (Table) 03/01/17 06:58 Blood Culture - Preliminary Blood No Growth after 96 hours Assessment and Plan Assessment: Impression: 1 acute diastolic CHF with pulmonary edema. The patient is responding nicely to diuretics. His chest x-ray shows improvement in the right pleural effusion. No plans for thoracentesis. Echocardiogram showed good LV function, but suspect there may be a component of valvular heart disease with severe mitral stenosis, pulmonary hypertension was noted, suspect some component of diastolic dysfunction. 2 acute hypoxic respiratory failure secondary to above, improving 3 chronic atrial fibrillation, anticoagulated with warfarin. 4 valvular heart disease with moderate to severe mitral stenosis 5 chronic renal failure, creatinine is stable 6 breast cancer currently undergoing systemic chemotherapy 7 skin cancer, history of 8 gout 9 chronic anemia, multifactorial, normocytic 10 pancytopenia secondary to chemotherapy, we will broaden the spectrum of antibiotics, white count improved to 2.9 today. Hemoglobin 7.8. Platelet count 100,000. Plan: The patient was seen and evaluated by Dr. Harman. Her chest x-ray and labs were reviewed. There is improvement in the right pleural effusion. No plans for thoracentesis today. Resume warfarin. Decrease Lasix to every 12 hours. We'll continue with her current medications. We'll increase her activity as tolerated. We'll continue to follow. I, the cosigning physician, have performed a history and physical examination on the patient. Lung sounds have crackles in the right lower lung, diminished. Maintaining good O2 saturations in the 6 L high flow nasal cannula.. I have discussed the assessment and plan of care with my nurse practitioner, Tamia Landeros. I attest to the above note as dictated by her.
--- NOTE | 2017-03-05 10:30 | P.PN ---
Subjective Progress Note Date: 03/05/17 this is a 81-year-old female with complex past medical history detailed below significant for underlying breast cancer on chemotherapy. Patient presented to the emergency room with worsening shortness of breath and fatigue. Patient said that her last chemo was approximately 2 weeks ago. She said that the chemo is making her fatigued. For the past 2 or 3 days patient noted worsening shortness of breath and lower extremity edema. She denies any cough. No fevers or chills. No orthopnea. Patient said that she is known to have heart failure and usually follow-up with cardiology. She is also known to have underlying A. fib and is on anticoagulation with Coumadin. Patient was evaluated in the emergency room and was found to have evidence of fluid overload. BNP was slightly elevated. Patient was started on IV Lasix and admitted to the hospital for further evaluation. 03/03/2017 patient is sitting up in bedside chair. Reports some improvement in her shortness of breath. Patient was unable to have VQ scan completed because she could not lay flat. Her white count has continued to drop to 0.6 and platelets are 63. Patient reports that she does not want to have any further chemotherapy treatments. However she does want to continue to receive treatment for her other medical issues. She reports that the chemotherapy is making her very fatigued and sick. Oncology will be through to evaluate patient. Case was discussed with both patient and her son. Antibiotics adjusted per pulmonar,y Zosyn was added on top of the Levaquin. Pulmonary ordered a chest ultrasound 03/04/2017 patient still having some shortness of breath. Chest ultrasound had shown a 9.9 cm right pleural effusion. Pulmonary service is planning on doing a thoracentesis tomorrow. Coumadin has been placed on hold. Patient denies any chest pain. Denies any nausea or vomiting. Denies bowel movement changes. Has Dill catheter in place. Creatinine has increased from 1.41-1.61. Patient is being diuresed with IV Lasix 03/05/2017 patient is feeling somewhat better her shortness of breath has improved she is complaining of pain in her mouth otherwise she denies any complaints is no fever or chills no headache no dizziness no chest pain no cough no palpitation no nausea or vomiting no abdominal pain no diarrhea or constipation and no urinary symptoms and has a Dill catheter in. Objective - Vital Signs Vital signs: Vital Signs Temp 97.7 F 03/05/17 08:00 Pulse 85 03/05/17 08:00 Resp 19 03/05/17 08:00 BP 125/58 03/05/17 08:00 Pulse Ox 95 03/05/17 08:00 Intake & Output 03/04/17 03/05/17 03/05/17 18:59 06:59 18:59 Intake Total 854 180 Output Total 1400 1200 Balance -546 -1200 180 Weight 71 kg Intake: IV 14 0.9 10 Furosemide 4 Oral 840 180 Output: Urine 1400 1200 Other: Voiding Method Indwelling Catheter Indwelling Catheter Indwelling Catheter - Exam Head normocephalic and atraumatic, there is evidence of thrush in her mouth Neck supple no JVD no goiter no lymphadenopathy Lungs clear to auscultation bilaterally no wheezing or crackles Heart regular rate and rhythm S1-S2, no rub or gallop Abdomen is soft nontender nondistended positive bowel sounds no hepatosplenomegaly Extremities leg swelling bilaterally 1+ Neuro alert and orientated to 3 - Labs CBC & Chem 7: 03/05/17 06:50 03/05/17 06:50 Labs: Abnormal Lab Results - Last 24 Hours (Table) 03/04/17 03/05/17 03/05/17 Range/Units 06:10 06:50 06:50 WBC 2.9 L (3.8-10.6) k/uL RBC 2.60 L (3.80-5.40) m/uL Hgb 7.8 L (11.4-16.0) gm/dL Hct 24.6 L (34.0-46.0) % RDW 19.1 H (11.5-15.5) % Plt Count 100 L (150-450) k/uL Lymphocytes # (Manual) 0.55 L (1.0-4.8) k/uL Metamyelocytes # (Man) 0.12 H (0) k/uL Myelocytes # (Manual) 0.12 H (0) k/uL Nucleated RBCs 2 H (0-0) /100 WBC PT 13.2 H (9.0-12.0) sec INR 1.4 H (<1.2) Potassium (3.5-5.1) mmol/L Carbon Dioxide (22-30) mmol/L BUN (7-17) mg/dL Creatinine (0.52-1.04) mg/dL Glucose (74-99) mg/dL Iron 18 L (50-170) ug/dL Iron Saturation 7.47 L (12.00-45.00) Ferritin 1025.4 H (10.0-291.0) ng/mL Total Bilirubin (0.2-1.3) mg/dL Total Protein (6.3-8.2) g/dL Albumin (3.5-5.0) g/dL 03/05/17 Range/Units 06:50 WBC (3.8-10.6) k/uL RBC (3.80-5.40) m/uL Hgb (11.4-16.0) gm/dL Hct (34.0-46.0) % RDW (11.5-15.5) % Plt Count (150-450) k/uL Lymphocytes # (Manual) (1.0-4.8) k/uL Metamyelocytes # (Man) (0) k/uL Myelocytes # (Manual) (0) k/uL Nucleated RBCs (0-0) /100 WBC PT (9.0-12.0) sec INR (<1.2) Potassium 3.4 L (3.5-5.1) mmol/L Carbon Dioxide 34 H (22-30) mmol/L BUN 59 H (7-17) mg/dL Creatinine 1.69 H (0.52-1.04) mg/dL Glucose 106 H (74-99) mg/dL Iron (50-170) ug/dL Iron Saturation (12.00-45.00) Ferritin (10.0-291.0) ng/mL Total Bilirubin 1.6 H (0.2-1.3) mg/dL Total Protein 4.4 L (6.3-8.2) g/dL Albumin 2.4 L (3.5-5.0) g/dL Microbiology - Last 24 Hours (Table) 03/01/17 06:58 Blood Culture - Preliminary Blood No Growth after 96 hours Assessment and Plan Plan: 1. Acute diastolic congestive heart failure exacerbation with pulmonary edema. Echo shows an EF of 50-55%, moderate to severe mitral stenosis and moderate pulmonary hypertension. Continue IV Lasix. Cardiology has adjusted medications. They've discontinued Norvasc and digoxin and increased her beta sotero. 2. Acute hypoxic respiratory failure secondary to CHF exacerbation 3. Chronic persistent atrial fibrillation: Continue Coumadin. Monitor closely due to patient's thrombocytopenia. Appreciate oncology's input. The recommending to continue the Coumadin as long as platelets are above 50,000 4. Pancytopenia most likely chemotherapy-induced. Currently on broad-spectrum antibiotics per pulmonary service 5. Obstructive uropathy status post Dill catheter insertion 6. Right breast cancer had been receiving chemotherapy. Patient expressed that she does not want any further chemotherapy treatment. Oncology following and appreciate their input 7. Right pleural effusion. Plan was for thoracentesis today, how ever patient improved decision by pulmonary to cancel thoracentesis, will resume coumadin today 8. chronic kidney disease, stage III. Creatinine is 1.60. Monitor closely while on diuretics
[2017-03-05] MEDS ORDERED: POTASSIUM CHLORIDE ER 20 MEQ TAB.ER PO SCH (11:00)
[2017-03-05] MEDS: NYSTATIN 100,000 UNIT/ML SUSP 500,000 UNIT/5 ML CUP PO SCH ×2 (12:56→17:11)
[2017-03-05] MEDS ORDERED: NYSTATIN 100,000 UNIT/ML SUSP 500,000 UNIT/5 ML CUP PO SCH (13:00)
--- NOTE | 2017-03-05 15:53 | P.PN ---
Subjective Progress Note Date: 03/05/17 Principal diagnosis: CHF This is a pleasant 81-year-old female who follows regularly with in the office. She has a known history of hypertension, diabetes, hyperlipidemia, mitral stenosis, chronic persistent atrial fibrillation, patient also has breast cancer for which she is currently undergoing chemotherapy. She presents to the hospital with symptoms of progressively worsening shortness of breath with associated peripheral edema. According to the patient, each time she gets chemotherapy she gets quite short of breath, and has associated swelling. She states that she just had her third treatment of chemo, and does not wish to have any further chemo treatments. EKG on admission here shows atrial fibrillation with rapid ventricular response. Chest x-ray shows bibasilar airspace disease with small bilateral effusions and vascular congestion. Blood pressure on arrival here 153/106 with a heart rate in the 90s, 94% on room air. Blood pressure this morning 134/60, she is 93% on 12l high flow. White blood cell count on admission 14.5, 3.2 this morning. Hemoglobin 8.3, platelet count 66. INR on admission 4.2, 1.9 this morning. Sodium 147, potassium 3.4, BUN 55, creatinine 1.4. AST and ALT mildly elevated on admission, coming down. Troponin 0.047. BNP 1700. At the time of my examination this morning, patient is still quite short of breath, she does state that her edema is improving. She feels extremely fatigued, has no appetite. 03/04/2017 Patient seen and examined today, sitting up in the chair, complains of feeling very tired, breathing overall is better. Weight is down almost 2 kg today, BUN 57, creatinine 1.6, INR 2.1. Hemoglobin 7.6, platelet count 90. Echocardiogram with Doppler study was performed which revealed an ejection fraction of 50-55%, LA is severely dilated, mild to moderate mitral regurg and moderate pulmonary hypertension. 03/05/2017 seen and examined today, sitting up in the chair, states that her breathing overall is improved, appetite very poor. Continues to have pleural effusion, not felt to be significant enough for thoracentesis. Objective - Vital Signs Vital signs: Vital Signs Temp 97.9 F 03/05/17 12:00 Pulse 84 03/05/17 12:00 Resp 18 03/05/17 12:00 BP 125/58 03/05/17 12:00 Pulse Ox 96 03/05/17 12:00 Intake & Output 03/04/17 03/05/17 03/05/17 18:59 06:59 18:59 Intake Total 854 180 Output Total 1400 1200 750 Balance -546 -1200 -570 Weight 71 kg 71 kg Intake: IV 14 0.9 10 Furosemide 4 Oral 840 180 Output: Urine 1400 1200 750 Other: Voiding Method Indwelling Catheter Indwelling Catheter Indwelling Catheter - Exam PHYSICAL EXAMINATION: HEENT: Head is atraumatic, normocephalic. Pupils equal, round. Neck is supple. There is elevated jugular venous pressure. HEART EXAMINATION: Heart S1-S2 diastolic murmur is heard. CHEST EXAMINATION: Lungs reveal crackles to bilateral bases with diminished air entry to the bases. ABDOMEN: Soft, nontender. Bowel sounds are heard. No organomegaly noted. EXTREMITIES: 2+ peripheral pulses with 1-2+ evidence of peripheral edema and no calf tenderness noted. NEUROLOGIC patient is awake, alert and oriented -3. - Labs CBC & Chem 7: 03/05/17 06:50 03/05/17 06:50 Labs: Abnormal Lab Results - Last 24 Hours (Table) 03/04/17 03/05/17 03/05/17 Range/Units 06:10 06:50 06:50 WBC 2.9 L (3.8-10.6) k/uL RBC 2.60 L (3.80-5.40) m/uL Hgb 7.8 L (11.4-16.0) gm/dL Hct 24.6 L (34.0-46.0) % RDW 19.1 H (11.5-15.5) % Plt Count 100 L (150-450) k/uL Lymphocytes # (Manual) 0.55 L (1.0-4.8) k/uL Metamyelocytes # (Man) 0.12 H (0) k/uL Myelocytes # (Manual) 0.12 H (0) k/uL Nucleated RBCs 2 H (0-0) /100 WBC PT 13.2 H (9.0-12.0) sec INR 1.4 H (<1.2) Potassium (3.5-5.1) mmol/L Carbon Dioxide (22-30) mmol/L BUN (7-17) mg/dL Creatinine (0.52-1.04) mg/dL Glucose (74-99) mg/dL Iron 18 L (50-170) ug/dL Iron Saturation 7.47 L (12.00-45.00) Ferritin 1025.4 H (10.0-291.0) ng/mL Total Bilirubin (0.2-1.3) mg/dL Total Protein (6.3-8.2) g/dL Albumin (3.5-5.0) g/dL 03/05/17 Range/Units 06:50 WBC (3.8-10.6) k/uL RBC (3.80-5.40) m/uL Hgb (11.4-16.0) gm/dL Hct (34.0-46.0) % RDW (11.5-15.5) % Plt Count (150-450) k/uL Lymphocytes # (Manual) (1.0-4.8) k/uL Metamyelocytes # (Man) (0) k/uL Myelocytes # (Manual) (0) k/uL Nucleated RBCs (0-0) /100 WBC PT (9.0-12.0) sec INR (<1.2) Potassium 3.4 L (3.5-5.1) mmol/L Carbon Dioxide 34 H (22-30) mmol/L BUN 59 H (7-17) mg/dL Creatinine 1.69 H (0.52-1.04) mg/dL Glucose 106 H (74-99) mg/dL Iron (50-170) ug/dL Iron Saturation (12.00-45.00) Ferritin (10.0-291.0) ng/mL Total Bilirubin 1.6 H (0.2-1.3) mg/dL Total Protein 4.4 L (6.3-8.2) g/dL Albumin 2.4 L (3.5-5.0) g/dL Microbiology - Last 24 Hours (Table) 03/01/17 06:58 Blood Culture - Preliminary Blood No Growth after 96 hours Assessment and Plan Plan: Assessment and plan #1 congestive heart failure, acute on chronic. Likely diastolic in nature. Patient's most recent echo I have available was performed in 2013 at which time her ejection fraction was documented to be 50-55%. #2 right breast cancer, currently on chemotherapy #3 pancytopenia, likely secondary to chemo #4 chronic persistent atrial fibrillation, on Coumadin for anticoagulation, INR today 2.1. #5 hypertension #6 diabetes #7 hyperlipidemia Plan Echocardiogram with Doppler study was performed which revealed an ejection fraction of 50-55%, LA is severely dilated, moderate mitral regurg moderate to severe mitral stenosis. From cardiology's perspective, we'll recommend to continue the patient on her current medications. We'll follow her with you now on an as-needed basis only, please don't hesitate to call with any questions.. DNP note has been reviewed, I agree with a documented findings and plan of care. Patient was seen and examined.
[2017-03-05] MEDS: WARFARIN 2.5 MG TAB PO SCH (17:10)
[2017-03-05] MEDS: ATORVASTATIN 10 MG TAB PO SCH (23:34)
[2017-03-06] MEDS: IPRATROPIUM-ALBUTEROL 3 ML NEB INHALATION SCH ×4 (03:10→15:08)
[2017-03-06] MEDS: NYSTATIN 100,000 UNIT/ML SUSP 500,000 UNIT/5 ML CUP PO SCH ×5 (05:30→21:42)
[2017-03-06] MEDS: FUROSEMIDE 10 MG/ML 4 ML VIAL IV SCH ×2 (05:30→17:06)
[2017-03-06 07:12] LABS: Anisocytosis Slight; HCT 20.5 % (34.0-46.0); MCH 29.6 pg (25.0-35.0); MCHC 31.9 g/dL (31.0-37.0); Mean Platelet Volume 9.6; RDW 17.9 % (11.5-15.5); WBC 6.8 k/uL (3.8-10.6)
[2017-03-06 07:17] LABS: HGB 6.5 gm/dL (11.4-16.0); Platelet Count 96 k/uL (150-450)
[2017-03-06 07:26] LABS: Albumin 2.4 g/dL (3.5-5.0); Calcium 9.2 mg/dL (8.4-10.2); Potassium 3.2 mmol/L (3.5-5.1); Total Bilirubin 1.3 mg/dL (0.2-1.3); Total Protein 4.5 g/dL (6.3-8.2)
[2017-03-06 07:28] LABS: INR 1.2 (<1.2); Prothrombin Time 11.5 sec (9.0-12.0)
[2017-03-06] MEDS ORDERED: POTASSIUM CHLORIDE ER 20 MEQ TAB.ER PO STA (08:07)
[2017-03-06] MEDS: PIPERACILLIN-TAZOBACTAM 3.375 GM in DEXTROSE/WATER 1 50ML.BAG IVPB SCH ×2 (08:19→21:46)
[2017-03-06] MEDS: METOPROLOL TARTRATE 25 MG TAB PO SCH ×3 (08:19→21:42)
[2017-03-06] MEDS: ALLOPURINOL 100 MG TAB PO SCH (08:19)
[2017-03-06 08:20] LABS: Band Neutrophils % 3 %; Lymphocytes # (M) 0.34 k/uL (1.0-4.8); Metamyelocytes # (M) 0.27 k/uL (0); Metamyelocytes % 4 %; Myelocytes # (M) 0.41 k/uL (0); Myelocytes % 6 %; Neutrophils % (M) 83 %; Nucleated Red Blood Cells 0 /100 WBC (0-0); Total Cells Counted 200
[2017-03-06] MEDS: POTASSIUM CHLORIDE ER 10 MEQ TAB.ER.PRT PO SCH (08:24)
[2017-03-06] MEDS: NON-FORMULARY DRUG (Mirabegron [Myrbetriq] 25 MG) PO SCH (08:25)
[2017-03-06] MEDS: FERROUS SULFATE 325 MG TAB PO SCH ×2 (08:43→21:46)
--- NOTE | 2017-03-06 11:21 | P.PN ---
Subjective Progress Note Date: 03/06/17 Principal diagnosis: Acute hypoxic respiratory failure secondary to congestive heart failure, diastolic in nature, secondary to valvular heart disease. Breast cancer recurrent. Right pleural effusion 81-year-old female patient, known history of breast cancer currently undergoing systemic chemotherapy, presented to the ED for increased shortness of breath. The patient was getting progressively more dyspneic over the past 2-3 days. No cough. No sputum production. No fever or chills. No pleurisy. She reported orthopnea. She also reported progressive increase in lower extremity edema. She was chronic atrial fibrillation and she is on anticoagulation with warfarin and she uses digoxin for rate control. She also has history of mitral stenosis. Her chest x-ray was consistent with acute CHF/pulmonary edema. The patient was started on IV Lasix. She has diuresed adequately and she is already feeling better. No new complaints otherwise for now. She seems to be quite fatigued and she is expressing significant amount of side effects from systemic chemotherapy including her last weakness, diminished appetite and alopecia. Her concerns of troponin was 0.047. BNP level was at 1700. She has also chronic renal failure. Creatinine is at 1.28 which is improved Patient was reevaluated today on 03/03/2017, continues to have shortness of breath , felt better when she sat up in the chair, she was feeling much worse when she was laying flat. Echocardiogram was reviewed, chest x-ray is showing worsening right sided pleural effusion and possible pulmonary edema. CBC is showing pancytopenia with low WBC count of 0.6 hemoglobin is 8.1 and platelets are 63, 000.patient is being followed by oncology.after reviewing the chest x-ray today , recommended increasing the Lasix, and after reviewing the WBC count, I added Zosyn in addition to her Levaquin which was initiated on admission. The patient is seen again today 03/04/2017 in follow-up on the selective care unit. She is currently sitting up in the chair at the bedside. She is awake and alert in no acute distress. She is still quite short of breath with minimal exertion. Wound of the right chest revealed a significant pleural effusion measuring 9.9 cm. She is requiring 12 L of high flow nasal cannula to maintain O2 saturations in the 90s. She is maintained on bronchodilators, antibiotics in the form of Levaquin and Zosyn, IV diuretics. Echocardiogram revealed preserved left ventricular systolic function with ejection fraction 50- 55%. There is moderate to severe mitral stenosis and moderate pulmonary hypertension. She's been afebrile. Hemodynamically stable. The culture reveals no growth. White count 0.6. Hemoglobin 7.6. Platelet count 90,000. INR 2.1. The patient is seen again today 03/05/2017 in follow-up on the selective care unit. She is awake and alert in no acute distress. She is breathing better today as compared to yesterday. Her chest x-ray was reviewed with Dr. Harman. There is improvement in the fluid of the right lung. No need for thoracentesis today. She is maintaining good O2 saturations now on 6 L high flow nasal cannula. She is afebrile. Hemodynamically stable. She remains in atrial fibrillation. We'll resume her warfarin today. White count 2.9. Hemoglobin 7.8. Creatinine is up to 1.69. Blood cultures revealed no growth. She was seen again today 03/06/2017 in follow-up on the selective care unit. She is currently sitting up in the chair at the bedside. She is awake and alert in no acute distress. She denies any worsening shortness of breath, cough or congestion. Down to 5 L high flow nasal cannula and maintaining good O2 saturations in the 90s. She's been afebrile. Hemodynamically stable. Culture reveals no growth. As had a drop in hemoglobin to 6.5 today. Her white count is up to 6.8. Platelets at 96,000. Then 1.76. Veins on Lasix 40 mg IV push every 12 hours. Currently in a -1 L balance. Objective - Vital Signs Vital signs: Vital Signs Temp 97.7 F 03/06/17 08:00 Pulse 89 03/06/17 08:00 Resp 20 03/06/17 08:00 BP 111/59 03/06/17 08:00 Pulse Ox 95 03/06/17 08:00 Intake & Output 03/05/17 03/06/17 03/06/17 18:59 06:59 18:59 Intake Total 280 Output Total 750 1000 Balance -470 -1000 Weight 71 kg 71 kg Intake: Oral 280 Output: Urine 750 1000 Other: Voiding Method Indwelling Catheter Indwelling Catheter Indwelling Catheter # Voids 0 # Bowel Movements 1 1 - Exam GENERAL EXAM: Alert, active, fairly comfortable in no apparent distress. HEAD: Normocephalic. Alopecia secondary to chemotherapy. EYES: Normal reaction of pupils, equal size. NOSE: Clear with pink turbinates. THROAT: No erythema or exudates. NECK: No masses, no JVD. CHEST: No chest wall deformity. LUNGS: Equal air entry with crackles in the right lung base. Diminished.. CVS: S1 and S2 normal with an audible murmur, irregular rhythm. ABDOMEN: No hepatosplenomegaly, normal bowel sounds, no guarding or rigidity. SPINE: No scoliosis or deformity SKIN: No rashes CENTRAL NERVOUS SYSTEM: No focal deficits, tone is normal in all 4 extremities. EXTREMITIES: There is no peripheral edema. No clubbing, no cyanosis. Peripheral pulses are intact. - Labs CBC & Chem 7: 03/06/17 06:50 03/06/17 06:50 Labs: Abnormal Lab Results - Last 24 Hours (Table) 03/06/17 03/06/17 03/06/17 Range/Units 06:50 06:50 06:50 RBC 2.20 L (3.80-5.40) m/uL Hgb 6.5 L* (11.4-16.0) gm/dL Hct 20.5 L (34.0-46.0) % RDW 17.9 H (11.5-15.5) % Plt Count 96 L (150-450) k/uL Lymphocytes # (Manual) 0.34 L (1.0-4.8) k/uL Metamyelocytes # (Man) 0.27 H (0) k/uL Myelocytes # (Manual) 0.41 H (0) k/uL INR 1.2 H (<1.2) Potassium 3.2 L (3.5-5.1) mmol/L Carbon Dioxide 34 H (22-30) mmol/L BUN 53 H (7-17) mg/dL Creatinine 1.76 H (0.52-1.04) mg/dL Total Protein 4.5 L (6.3-8.2) g/dL Albumin 2.4 L (3.5-5.0) g/dL Microbiology - Last 24 Hours (Table) 03/01/17 06:58 Blood Culture - Preliminary Blood No Growth after 120 hours Assessment and Plan Assessment: Impression: 1 acute diastolic CHF with pulmonary edema. The patient is responding nicely to diuretics. His chest x-ray shows improvement in the right pleural effusion. No plans for thoracentesis. Echocardiogram showed good LV function, but suspect there may be a component of valvular heart disease with severe mitral stenosis, pulmonary hypertension was noted, suspect some component of diastolic dysfunction. 2 acute hypoxic respiratory failure secondary to above, improving currently down to 5 L high flow nasal cannula. 3 chronic atrial fibrillation, anticoagulated with warfarin. 4 valvular heart disease with moderate to severe mitral stenosis 5 chronic renal failure, creatinine is stable 6 breast cancer currently undergoing systemic chemotherapy 7 skin cancer, history of 8 gout 9 chronic anemia, multifactorial, normocytic 10 pancytopenia secondary to chemotherapy, we will broaden the spectrum of antibiotics, white count improved to 6.8 today. Hemoglobin to 6.5. Platelets at 96,000. Plan: The patient was seen and evaluated by Dr. Harman. One unit of packed red blood cells was ordered however the patient seems quite reluctant. She is making comments about possibly not continuing with any further treatment. Her son is at the bedside. They're having ongoing conversation in this regard. In the interim we'll continue to titrate down her FiO2 as tolerated. We'll continue with her medications. Continue diuretics. We will repeat a chest x-ray in the a.m. We'll increase her activity as tolerated. We'll continue to follow. I, the cosigning physician, have performed a history and physical examination on the patient. Lung sounds have crackles in the right lower lung, diminished. Maintaining good O2 saturations in the 5 L high flow nasal cannula.. I have discussed the assessment and plan of care with my nurse practitioner, Tamia Landeros. I attest to the above note as dictated by her.
--- NOTE | 2017-03-06 11:40 | P.PN ---
Subjective Progress Note Date: 03/06/17 this is a 81-year-old female with complex past medical history detailed below significant for underlying breast cancer on chemotherapy. Patient presented to the emergency room with worsening shortness of breath and fatigue. Patient said that her last chemo was approximately 2 weeks ago. She said that the chemo is making her fatigued. For the past 2 or 3 days patient noted worsening shortness of breath and lower extremity edema. She denies any cough. No fevers or chills. No orthopnea. Patient said that she is known to have heart failure and usually follow-up with cardiology. She is also known to have underlying A. fib and is on anticoagulation with Coumadin. Patient was evaluated in the emergency room and was found to have evidence of fluid overload. BNP was slightly elevated. Patient was started on IV Lasix and admitted to the hospital for further evaluation. 03/03/2017 patient is sitting up in bedside chair. Reports some improvement in her shortness of breath. Patient was unable to have VQ scan completed because she could not lay flat. Her white count has continued to drop to 0.6 and platelets are 63. Patient reports that she does not want to have any further chemotherapy treatments. However she does want to continue to receive treatment for her other medical issues. She reports that the chemotherapy is making her very fatigued and sick. Oncology will be through to evaluate patient. Case was discussed with both patient and her son. Antibiotics adjusted per pulmonar,y Zosyn was added on top of the Levaquin. Pulmonary ordered a chest ultrasound 03/04/2017 patient still having some shortness of breath. Chest ultrasound had shown a 9.9 cm right pleural effusion. Pulmonary service is planning on doing a thoracentesis tomorrow. Coumadin has been placed on hold. Patient denies any chest pain. Denies any nausea or vomiting. Denies bowel movement changes. Has Dill catheter in place. Creatinine has increased from 1.41-1.61. Patient is being diuresed with IV Lasix 03/06/2017 patient's shortness of breath is improving. She is down to 6 L satting at 97%. Chest x-ray had shown improvement in that right pleural effusion. Thoracentesis was canceled yesterday. She remains on IV Lasix. Pulmonary service did adjust the dose yesterday down to 40 mg every 12 hours. Patient denies any chest pain or nausea vomiting. She is now reporting diarrhea. Stool for C. diff has been ordered. Hemoglobin 6.5 this morning. Oncology did order unit of blood. However, at this time patient has refusing the blood transfusion. Wants to have her CBC checked in a.m. before proceeding with a unit of blood Objective - Vital Signs Vital signs: Vital Signs Temp 97.7 F 03/06/17 08:00 Pulse 89 03/06/17 08:00 Resp 20 03/06/17 08:00 BP 111/59 03/06/17 08:00 Pulse Ox 95 03/06/17 08:00 Intake & Output 03/05/17 03/06/17 03/06/17 18:59 06:59 18:59 Intake Total 280 Output Total 750 1000 Balance -470 -1000 Weight 71 kg 71 kg Intake: Oral 280 Output: Urine 750 1000 Other: Voiding Method Indwelling Catheter Indwelling Catheter Indwelling Catheter # Voids 0 # Bowel Movements 1 1 - Exam Head normocephalic Neck supple Lungs diminished Heart regular rate and rhythm S1-S2, no rub or gallop Abdomen is soft nontender nondistended positive bowel sounds no hepatosplenomegaly Extremities leg swelling bilaterally Neuro alert and orientated to 3 - Labs CBC & Chem 7: 03/06/17 06:50 03/06/17 06:50 Labs: Abnormal Lab Results - Last 24 Hours (Table) 03/06/17 03/06/17 03/06/17 Range/Units 06:50 06:50 06:50 RBC 2.20 L (3.80-5.40) m/uL Hgb 6.5 L* (11.4-16.0) gm/dL Hct 20.5 L (34.0-46.0) % RDW 17.9 H (11.5-15.5) % Plt Count 96 L (150-450) k/uL Lymphocytes # (Manual) 0.34 L (1.0-4.8) k/uL Metamyelocytes # (Man) 0.27 H (0) k/uL Myelocytes # (Manual) 0.41 H (0) k/uL INR 1.2 H (<1.2) Potassium 3.2 L (3.5-5.1) mmol/L Carbon Dioxide 34 H (22-30) mmol/L BUN 53 H (7-17) mg/dL Creatinine 1.76 H (0.52-1.04) mg/dL Total Protein 4.5 L (6.3-8.2) g/dL Albumin 2.4 L (3.5-5.0) g/dL Microbiology - Last 24 Hours (Table) 03/01/17 06:58 Blood Culture - Preliminary Blood No Growth after 120 hours Assessment and Plan Assessment: 1. Acute diastolic congestive heart failure exacerbation with pulmonary edema. Echo shows an EF of 50-55%, moderate to severe mitral stenosis and moderate pulmonary hypertension. Home a service has decreased Lasix to 40 mg IV every 12 hours. Chest x-ray showing improvement in the right pleural effusion. 2. Acute hypoxic respiratory failure secondary to CHF exacerbation 3. Chronic persistent atrial fibrillation: Continue Coumadin. Monitor closely due to patient's thrombocytopenia. Appreciate oncology's input. They are recommending to continue the Coumadin as long as platelets are above 50,000 4. Pancytopenia most likely chemotherapy-induced. Currently on broad-spectrum antibiotics per pulmonary service 5. Obstructive uropathy status post Dill catheter insertion 6. Right breast cancer had been receiving chemotherapy. Patient expressed that she does not want any further chemotherapy treatment. Oncology following and appreciate their input 7. Right pleural effusion: Patient scheduled for right-sided thoracentesis tomorrow. Coumadin on hold for procedure. 8. chronic kidney disease, stage III. Creatinine is 1.76. Monitor closely while on diuretics 9. Diarrhea. Check stool for C. diff 10. Chronic anemia secondary to chemotherapy, patient's breast cancer, and iron deficiency. hemoglobin has dropped 6.5. Patient refusing blood transfusion. Check CBC in a.m. Oncology is aware that patient refused transfusion. We'll start iron supplement. I performed an examination of the patient and discussed their management with the physician Spinning Frame Fixer. I have reviewed the Physician Spinning Frame Fixer's notes and agree with the documented findings and plan of care
[2017-03-06] MEDS ORDERED: SODIUM FERRIC GLUCONAT-SUCROSE 125 MG in SODIUM CHLORIDE 0.9% 100 ML IVPB ONE (12:30)
[2017-03-06] MEDS ORDERED: IPRATROPIUM-ALBUTEROL 3 ML NEB INHALATION PRN (15:05)
[2017-03-06] MEDS: WARFARIN 2.5 MG TAB PO SCH (17:07)
[2017-03-06] MEDS: ALPRAZolam 0.25 MG TAB PO PRN (21:42)
[2017-03-06] MEDS: ATORVASTATIN 10 MG TAB PO SCH (21:47)
[2017-03-06] MEDS ORDERED: CALCIUM CARBONATE 500 MG CHEWABLE PO PRN (21:53)
[2017-03-06] MEDS: ONDANSETRON 4 MG/2 ML VIAL IVP PRN (22:40)
[2017-03-06] MEDS: HYDROmorphone 2 MG/ML 1 ML SYRINGE IVP PRN (22:41)
[2017-03-07] MEDS: HYDROmorphone 2 MG/ML 1 ML SYRINGE IVP PRN (06:15)
[2017-03-07] MEDS: FUROSEMIDE 10 MG/ML 4 ML VIAL IV SCH ×2 (06:16→17:27)
[2017-03-07] MEDS: ONDANSETRON 4 MG/2 ML VIAL IVP PRN ×2 (06:16→12:32)
[2017-03-07 06:40] LABS: INR 1.1 (<1.2); Prothrombin Time 10.8 sec (9.0-12.0)
[2017-03-07 06:47] LABS: Albumin 2.5 g/dL (3.5-5.0); Calcium 9.4 mg/dL (8.4-10.2); Potassium 3.9 mmol/L (3.5-5.1); Total Bilirubin 1.1 mg/dL (0.2-1.3); Total Protein 4.6 g/dL (6.3-8.2)
[2017-03-07 06:50] LABS: Anisocytosis Slight; Basophils # (A) 0.1 k/uL (0-0.2); Basophils % (A) 1 %; Eosinophils % (A) 0 %; HCT 24.4 % (34.0-46.0); HGB 7.9 gm/dL (11.4-16.0); Lymphocytes # (A) 0.4 k/uL (1.0-4.8); Lymphocytes % (A) 4 %; MCHC 32.2 g/dL (31.0-37.0); MCV 92.9 fL (80.0-100.0); Monocytes # (A) 0.5 k/uL (0-1.0); Monocytes % (A) 4 %; Neutrophils # (A) 10.4 k/uL (1.3-7.7); Neutrophils % (A) 90 %; Platelet Count 107 k/uL (150-450); RBC 2.62 m/uL (3.80-5.40); WBC 11.5 k/uL (3.8-10.6)
--- NOTE | 2017-03-07 07:40 | XR ---
EXAMINATION TYPE: XR chest 1V portable DATE OF EXAM: 03/07/2017 COMPARISON: 03/05/2017. HISTORY: History of breast cancer. Shortness of breath. TECHNIQUE: Single frontal view of the chest is obtained. FINDINGS: There is redemonstration of obscuration of the right costophrenic angle and subtly of the left. Retrocardiac airspace disease and left pleural effusion have improved in the interim. Pulmonary vascular congestion and right basilar airspace disease remains. Left-sided Mediport is unchanged in position. Cardiac silhouette is enlarged. Multilevel moderate degenerative changes of the thoracic sp ine are again seen. Surgical clips are noted along the left hemithorax from prior mastectomy. IMPRESSION: 1. Improving aeration of the left lung base and decreasing left pleural effusion. Stable trace right pleural effusion. 2. Persistent right basilar and right midlung opacity may represent confluent pulmonary edema/atelect asis or infectious airspace disease. Continued surveillance is recommended. 3. Mild interstitial pulmonary edema/pulmonary vascular congestion, unchanged from the prior.
[2017-03-07] MEDS: PIPERACILLIN-TAZOBACTAM 3.375 GM in DEXTROSE/WATER 1 50ML.BAG IVPB SCH ×2 (08:35→20:40)
[2017-03-07] MEDS: METOPROLOL TARTRATE 25 MG TAB PO SCH ×3 (08:36→20:40)
[2017-03-07] MEDS: LEVOFLOXACIN 500 MG TAB PO SCH (08:36)
[2017-03-07] MEDS: NYSTATIN 100,000 UNIT/ML SUSP 500,000 UNIT/5 ML CUP PO SCH ×4 (08:36→20:40)
[2017-03-07] MEDS: FERROUS SULFATE 325 MG TAB PO SCH ×2 (08:36→20:41)
[2017-03-07] MEDS: ALLOPURINOL 100 MG TAB PO SCH (08:36)
[2017-03-07] MEDS: NON-FORMULARY DRUG (Mirabegron [Myrbetriq] 25 MG) PO SCH (08:36)
[2017-03-07] MEDS: POTASSIUM CHLORIDE ER 10 MEQ TAB.ER.PRT PO SCH (08:37)
--- NOTE | 2017-03-07 11:08 | P.PN ---
Subjective Progress Note Date: 03/07/17 Principal diagnosis: acute hypoxic respiratory failure secondary to congestive heart failure, diastolic in nature, secondary to valvular heart disease. Acute hypoxic respiratory failure secondary to congestive heart failure, diastolic in nature, secondary to valvular heart disease. Breast cancer recurrent. Right pleural effusion 81-year-old female patient, known history of breast cancer currently undergoing systemic chemotherapy, presented to the ED for increased shortness of breath. The patient was getting progressively more dyspneic over the past 2-3 days. No cough. No sputum production. No fever or chills. No pleurisy. She reported orthopnea. She also reported progressive increase in lower extremity edema. She was chronic atrial fibrillation and she is on anticoagulation with warfarin and she uses digoxin for rate control. She also has history of mitral stenosis. Her chest x-ray was consistent with acute CHF/pulmonary edema. The patient was started on IV Lasix. She has diuresed adequately and she is already feeling better. No new complaints otherwise for now. She seems to be quite fatigued and she is expressing significant amount of side effects from systemic chemotherapy including her last weakness, diminished appetite and alopecia. Her concerns of troponin was 0.047. BNP level was at 1700. She has also chronic renal failure. Creatinine is at 1.28 which is improved Patient was reevaluated today on 03/03/2017, continues to have shortness of breath , felt better when she sat up in the chair, she was feeling much worse when she was laying flat. Echocardiogram was reviewed, chest x-ray is showing worsening right sided pleural effusion and possible pulmonary edema. CBC is showing pancytopenia with low WBC count of 0.6 hemoglobin is 8.1 and platelets are 63, 000.patient is being followed by oncology.after reviewing the chest x-ray today , recommended increasing the Lasix, and after reviewing the WBC count, I added Zosyn in addition to her Levaquin which was initiated on admission. The patient is seen again today 03/04/2017 in follow-up on the selective care unit. She is currently sitting up in the chair at the bedside. She is awake and alert in no acute distress. She is still quite short of breath with minimal exertion. Wound of the right chest revealed a significant pleural effusion measuring 9.9 cm. She is requiring 12 L of high flow nasal cannula to maintain O2 saturations in the 90s. She is maintained on bronchodilators, antibiotics in the form of Levaquin and Zosyn, IV diuretics. Echocardiogram revealed preserved left ventricular systolic function with ejection fraction 50- 55%. There is moderate to severe mitral stenosis and moderate pulmonary hypertension. She's been afebrile. Hemodynamically stable. The culture reveals no growth. White count 0.6. Hemoglobin 7.6. Platelet count 90,000. INR 2.1. The patient is seen again today 03/05/2017 in follow-up on the selective care unit. She is awake and alert in no acute distress. She is breathing better today as compared to yesterday. Her chest x-ray was reviewed with Dr. Harman. There is improvement in the fluid of the right lung. No need for thoracentesis today. She is maintaining good O2 saturations now on 6 L high flow nasal cannula. She is afebrile. Hemodynamically stable. She remains in atrial fibrillation. We'll resume her warfarin today. White count 2.9. Hemoglobin 7.8. Creatinine is up to 1.69. Blood cultures revealed no growth. She was seen again today 03/06/2017 in follow-up on the selective care unit. She is currently sitting up in the chair at the bedside. She is awake and alert in no acute distress. She denies any worsening shortness of breath, cough or congestion. Down to 5 L high flow nasal cannula and maintaining good O2 saturations in the 90s. She's been afebrile. Hemodynamically stable. Culture reveals no growth. As had a drop in hemoglobin to 6.5 today. Her white count is up to 6.8. Platelets at 96,000. Then 1.76. Veins on Lasix 40 mg IV push every 12 hours. Currently in a -1 L balance. Reevaluated today on 03/07/2017, patient is doing better, breathing easier, remains on oxygen, remains on Lasix, her last chest x-ray showed improvement in her pleural effusion, clinically the patient is feeling improved.hemoglobin today is 7.9, it was 6.5 yesterday.no blood transfusion was given yesterday because the patient declined to be transfused.INR is 1.1, renal profile is about the same with BUN of 49 and creatinine of 1.76. Objective - Vital Signs Vital signs: Vital Signs Temp 98 F 03/07/17 08:00 Pulse 90 03/07/17 08:00 Resp 18 03/07/17 08:00 BP 138/64 03/07/17 08:00 Pulse Ox 98 03/07/17 08:00 Intake & Output 03/06/17 03/07/17 03/07/17 18:59 06:59 18:59 Intake Total 200 Output Total 400 1000 Balance -400 -1000 200 Weight 71.5 kg Intake: Oral 200 Output: Urine 400 1000 Other: Voiding Method Indwelling Catheter Indwelling Catheter Indwelling Catheter - Exam GENERAL EXAM: Alert, active, fairly comfortable in no apparent distress. HEAD: Normocephalic. Alopecia secondary to chemotherapy. EYES: Normal reaction of pupils, equal size. NOSE: Clear with pink turbinates. THROAT: No erythema or exudates. NECK: No masses, no JVD. CHEST: No chest wall deformity. LUNGS: Equal air entry with crackles in the right lung base. Diminished.. CVS: S1 and S2 normal with an audible murmur, irregular rhythm. ABDOMEN: No hepatosplenomegaly, normal bowel sounds, no guarding or rigidity. SPINE: No scoliosis or deformity SKIN: No rashes CENTRAL NERVOUS SYSTEM: No focal deficits, tone is normal in all 4 extremities. EXTREMITIES: There is no peripheral edema. No clubbing, no cyanosis. Peripheral pulses are intact. - Labs CBC & Chem 7: 03/07/17 05:30 03/07/17 05:30 Labs: Abnormal Lab Results - Last 24 Hours (Table) 03/07/17 03/07/17 Range/Units 05:30 05:30 WBC 11.5 H (3.8-10.6) k/uL RBC 2.62 L (3.80-5.40) m/uL Hgb 7.9 L (11.4-16.0) gm/dL Hct 24.4 L (34.0-46.0) % RDW 18.0 H (11.5-15.5) % Plt Count 107 L (150-450) k/uL Neutrophils # 10.4 H (1.3-7.7) k/uL Lymphocytes # 0.4 L (1.0-4.8) k/uL Carbon Dioxide 34 H (22-30) mmol/L BUN 49 H (7-17) mg/dL Creatinine 1.76 H (0.52-1.04) mg/dL Glucose 134 H (74-99) mg/dL Total Protein 4.6 L (6.3-8.2) g/dL Albumin 2.5 L (3.5-5.0) g/dL Microbiology - Last 24 Hours (Table) 03/01/17 06:58 Blood Culture - Final Blood No Growth after 144 hours Assessment and Plan Assessment: 1 acute diastolic CHF with pulmonary edema. The patient is responding nicely to diuretics. His chest x-ray shows improvement in the right pleural effusion. No plans for thoracentesis. Echocardiogram showed good LV function, but suspect there may be a component of valvular heart disease with severe mitral stenosis, pulmonary hypertension was noted, suspect some component of diastolic dysfunction. 2 acute hypoxic respiratory failure secondary to above, improving currently down to 5 L high flow nasal cannula. 3 chronic atrial fibrillation, anticoagulated with warfarin. 4 valvular heart disease with moderate to severe mitral stenosis 5 chronic renal failure, creatinine is stable 6 breast cancer currently undergoing systemic chemotherapy 7 skin cancer, history of 8 gout 9 chronic anemia, multifactorial, normocytic 10 pancytopenia secondary to chemotherapy, we will broaden the spectrum of antibiotics, white count improved to11.5 today, and hemoglobin is 7.9. Recommendation: Consider discharge planning to a rehab facility over the next 24 -48 hours. Time with Patient: Less than 30
[2017-03-07 11:37] VITALS: BMI 30.7
[2017-03-07] MEDS ORDERED: HYDROcodone/APAP 5-325MG 1 EACH TAB PO PRN (12:45)
--- NOTE | 2017-03-07 14:55 | P.PN ---
Subjective Progress Note Date: 03/07/17 this is a 81-year-old female with complex past medical history detailed below significant for underlying breast cancer on chemotherapy. Patient presented to the emergency room with worsening shortness of breath and fatigue. Patient said that her last chemo was approximately 2 weeks ago. She said that the chemo is making her fatigued. For the past 2 or 3 days patient noted worsening shortness of breath and lower extremity edema. She denies any cough. No fevers or chills. No orthopnea. Patient said that she is known to have heart failure and usually follow-up with cardiology. She is also known to have underlying A. fib and is on anticoagulation with Coumadin. Patient was evaluated in the emergency room and was found to have evidence of fluid overload. BNP was slightly elevated. Patient was started on IV Lasix and admitted to the hospital for further evaluation. 03/03/2017 patient is sitting up in bedside chair. Reports some improvement in her shortness of breath. Patient was unable to have VQ scan completed because she could not lay flat. Her white count has continued to drop to 0.6 and platelets are 63. Patient reports that she does not want to have any further chemotherapy treatments. However she does want to continue to receive treatment for her other medical issues. She reports that the chemotherapy is making her very fatigued and sick. Oncology will be through to evaluate patient. Case was discussed with both patient and her son. Antibiotics adjusted per pulmonar,y Zosyn was added on top of the Levaquin. Pulmonary ordered a chest ultrasound 03/04/2017 patient still having some shortness of breath. Chest ultrasound had shown a 9.9 cm right pleural effusion. Pulmonary service is planning on doing a thoracentesis tomorrow. Coumadin has been placed on hold. Patient denies any chest pain. Denies any nausea or vomiting. Denies bowel movement changes. Has Dill catheter in place. Creatinine has increased from 1.41-1.61. Patient is being diuresed with IV Lasix 03/06/2017 patient's shortness of breath is improving. She is down to 6 L satting at 97%. Chest x-ray had shown improvement in that right pleural effusion. Thoracentesis was canceled yesterday. She remains on IV Lasix. Pulmonary service did adjust the dose yesterday down to 40 mg every 12 hours. Patient denies any chest pain or nausea vomiting. She is now reporting diarrhea. Stool for C. diff has been ordered. Hemoglobin 6.5 this morning. Oncology did order unit of blood. However, at this time patient has refusing the blood transfusion. Wants to have her CBC checked in a.m. before proceeding with a unit of blood 03/07/2017 patient has had some improvement in her shortness of breath. Remains on IV Lasix. Diarrhea has resolved. She is complaining of some right- sided abdominal pain. Patient describes it as gas pains. She's also having some nausea and dry heaves. Zofran has been given. Stool for C. diff was negative. Her hemoglobin has increased from 6.5-7.9 after IV iron given. She denies any chest pain. Has Dill catheter in place Objective - Vital Signs Vital signs: Vital Signs Temp 98 F 03/07/17 08:00 Pulse 76 03/07/17 12:35 Resp 16 03/07/17 12:35 BP 103/55 03/07/17 12:35 Pulse Ox 95 03/07/17 12:35 Intake & Output 03/06/17 03/07/17 03/07/17 18:59 06:59 18:59 Intake Total 250 Output Total 400 1000 Balance -400 -1000 250 Weight 71.5 kg 71.5 kg Intake: Intake, IV Titration 50 Amount Piperacillin-Tazobactam 3 50 .375 gm In Dextrose/Water 1 50ml.bag @ 12.5 mls/hr IVPB Q12HR [facility] Rx#: [id number] Oral 200 Output: Urine 400 1000 Other: Voiding Method Indwelling Catheter Indwelling Catheter Indwelling Catheter - Exam Head normocephalic Neck supple Lungs diminished Heart regular rate and rhythm S1-S2, no rub or gallop Abdomen is soft nontender mild tenderness right upper quadrant positive bowel sounds no hepatosplenomegaly Extremities leg swelling bilaterally Neuro alert and orientated to 3 - Labs CBC & Chem 7: 03/07/17 05:30 03/07/17 05:30 Labs: Abnormal Lab Results - Last 24 Hours (Table) 03/07/17 03/07/17 Range/Units 05:30 05:30 WBC 11.5 H (3.8-10.6) k/uL RBC 2.62 L (3.80-5.40) m/uL Hgb 7.9 L (11.4-16.0) gm/dL Hct 24.4 L (34.0-46.0) % RDW 18.0 H (11.5-15.5) % Plt Count 107 L (150-450) k/uL Neutrophils # 10.4 H (1.3-7.7) k/uL Lymphocytes # 0.4 L (1.0-4.8) k/uL Carbon Dioxide 34 H (22-30) mmol/L BUN 49 H (7-17) mg/dL Creatinine 1.76 H (0.52-1.04) mg/dL Glucose 134 H (74-99) mg/dL Total Protein 4.6 L (6.3-8.2) g/dL Albumin 2.5 L (3.5-5.0) g/dL Microbiology - Last 24 Hours (Table) 03/01/17 06:58 Blood Culture - Final Blood No Growth after 144 hours Assessment and Plan Assessment: 1. Acute diastolic congestive heart failure exacerbation with pulmonary edema. Echo shows an EF of 50-55%, moderate to severe mitral stenosis and moderate pulmonary hypertension. Home a service has decreased Lasix to 40 mg IV every 12 hours. Chest x-ray showing improvement in the right pleural effusion. Pulmonary service following the recommending possible discharge within the next 24-48 hours. Cardiology has signed off 2. Acute hypoxic respiratory failure secondary to CHF exacerbation 3. Chronic persistent atrial fibrillation: Continue Coumadin. Monitor closely due to patient's thrombocytopenia. Appreciate oncology's input. They are recommending to continue the Coumadin as long as platelets are above 50,000. INR is 1.1. Will give Coumadin 5 mg tonight and monitor PT/INR daily 4. Pancytopenia most likely chemotherapy-induced. Currently on broad-spectrum antibiotics per pulmonary service 5. Obstructive uropathy status post Dill catheter insertion 6. Right breast cancer had been receiving chemotherapy. Patient expressed that she does not want any further chemotherapy treatment. Oncology following and appreciate their input 7. Right pleural effusion: Patient scheduled for right-sided thoracentesis tomorrow. Coumadin on hold for procedure. 8. chronic kidney disease, stage III. Creatinine is 1.76. Monitor closely while on diuretics 9. Diarrhea. Resolved. Stool for C. diff negative 10. Chronic anemia secondary to chemotherapy, patient's breast cancer, and iron deficiency. hemoglobin has dropped 6.5. Patient refusing blood transfusion. Patient was given 1 dose of IV iron. She was started on oral iron. Hemoglobin has gone up from 6.5-7.9 11. Leukocytosis: Patient is still covered with antibiotics Levaquin and Zosyn. Check urinalysis for UTI Anticipating discharge to ECF possibly Friday We'll add [place] for pain control I performed an examination of the patient and discussed their management with the physician Inspector [employer]. I have reviewed the Physician Inspector [employer]'s notes and agree with the documented findings and plan of care
[2017-03-07] MEDS ORDERED: HYDROmorphone 0.5 MG/0.5 ML SYRINGE IVP PRN (16:24)
[2017-03-07 17:01] LABS: Appearance,Urine Clear (Clear); Bacteria,Urine Rare /hpf; Bilirubin,Urine Negative (Negative); Blood,Urine Trace (Negative); Color,Urine Yellow; Glucose,Urine (UA) Negative (Negative); Ketones,Urine Negative (Negative); Leukocyte Esterase,Urine Trace (Negative); Mucus,Urine Rare /hpf; Nitrite,Urine Negative (Negative); PH, Urine 5.5 (5.0-8.0); Protein,Urine Trace (Negative); RBC,Urine 4 /hpf (0-5); Specific Gravity,Urine 1.013 (1.001-1.035); Squamous Epithelial Cell,Urine <1 /hpf (0-4); Urobilinogen,Urine <2.0 mg/dL (<2.0); WBC,Urine 4 /hpf (0-5)
[2017-03-07] MEDS ORDERED: WARFARIN 5 MG TAB PO ONE (18:00)
[2017-03-07] MEDS: ATORVASTATIN 10 MG TAB PO SCH (20:40)
[2017-03-07] MEDS: ALPRAZolam 0.25 MG TAB PO PRN (20:47)
[2017-03-08] MEDS: FUROSEMIDE 10 MG/ML 4 ML VIAL IV SCH ×2 (05:30→17:10)
[2017-03-08 06:16] LABS: Anisocytosis Slight; HCT 24.1 % (34.0-46.0); HGB 7.7 gm/dL (11.4-16.0); Hypochromasia Slight; MCH 29.8 pg (25.0-35.0); MCHC 31.8 g/dL (31.0-37.0); MCV 93.8 fL (80.0-100.0); Macrocytosis Slight; Mean Platelet Volume 8.4; Platelet Count 102 k/uL (150-450); RBC 2.57 m/uL (3.80-5.40); RDW 18.1 % (11.5-15.5)
[2017-03-08 06:57] LABS: Band Neutrophils % 8 %; Metamyelocytes % 6 %; Monocytes # (M) 0.21 k/uL (0-1.0); Myelocytes % 1 %; Neutrophils % (M) 76 %; Nucleated Red Blood Cells 2 /100 WBC (0-0); Total Cells Counted 100
[2017-03-08 06:58] LABS: Lymphocytes # (M) 0.73 k/uL (1.0-4.8); Metamyelocytes # (M) 0.62 k/uL (0); WBC 10.4 k/uL (3.8-10.6)
[2017-03-08 06:59] LABS: Anisocytosis (M) Present
[2017-03-08 07:01] LABS: Ovalocytes Present
[2017-03-08] MEDS: NON-FORMULARY DRUG (Mirabegron [Myrbetriq] 25 MG) PO SCH (08:44)
[2017-03-08] MEDS: ALLOPURINOL 100 MG TAB PO SCH (08:51)
[2017-03-08] MEDS: POTASSIUM CHLORIDE ER 10 MEQ TAB.ER.PRT PO SCH (08:51)
[2017-03-08] MEDS: NYSTATIN 100,000 UNIT/ML SUSP 500,000 UNIT/5 ML CUP PO SCH ×4 (08:51→20:23)
[2017-03-08] MEDS: METOPROLOL TARTRATE 25 MG TAB PO SCH ×3 (08:51→20:35)
[2017-03-08] MEDS: FERROUS SULFATE 325 MG TAB PO SCH ×2 (08:51→20:29)
[2017-03-08] MEDS: PIPERACILLIN-TAZOBACTAM 3.375 GM in DEXTROSE/WATER 1 50ML.BAG IVPB SCH ×2 (08:55→20:35)
--- NOTE | 2017-03-08 09:37 | P.PN ---
Subjective Progress Note Date: 03/08/17 Principal diagnosis: acute hypoxic respiratory failure secondary to congestive heart failure, diastolic in nature, secondary to valvular heart disease. Acute hypoxic respiratory failure secondary to congestive heart failure, diastolic in nature, secondary to valvular heart disease. Breast cancer recurrent. Right pleural effusion 81-year-old female patient, known history of breast cancer currently undergoing systemic chemotherapy, presented to the ED for increased shortness of breath. The patient was getting progressively more dyspneic over the past 2-3 days. No cough. No sputum production. No fever or chills. No pleurisy. She reported orthopnea. She also reported progressive increase in lower extremity edema. She was chronic atrial fibrillation and she is on anticoagulation with warfarin and she uses digoxin for rate control. She also has history of mitral stenosis. Her chest x-ray was consistent with acute CHF/pulmonary edema. The patient was started on IV Lasix. She has diuresed adequately and she is already feeling better. No new complaints otherwise for now. She seems to be quite fatigued and she is expressing significant amount of side effects from systemic chemotherapy including her last weakness, diminished appetite and alopecia. Her concerns of troponin was 0.047. BNP level was at 1700. She has also chronic renal failure. Creatinine is at 1.28 which is improved Patient was reevaluated today on 03/03/2017, continues to have shortness of breath , felt better when she sat up in the chair, she was feeling much worse when she was laying flat. Echocardiogram was reviewed, chest x-ray is showing worsening right sided pleural effusion and possible pulmonary edema. CBC is showing pancytopenia with low WBC count of 0.6 hemoglobin is 8.1 and platelets are 63, 000.patient is being followed by oncology.after reviewing the chest x-ray today , recommended increasing the Lasix, and after reviewing the WBC count, I added Zosyn in addition to her Levaquin which was initiated on admission. The patient is seen again today 03/04/2017 in follow-up on the selective care unit. She is currently sitting up in the chair at the bedside. She is awake and alert in no acute distress. She is still quite short of breath with minimal exertion. Wound of the right chest revealed a significant pleural effusion measuring 9.9 cm. She is requiring 12 L of high flow nasal cannula to maintain O2 saturations in the 90s. She is maintained on bronchodilators, antibiotics in the form of Levaquin and Zosyn, IV diuretics. Echocardiogram revealed preserved left ventricular systolic function with ejection fraction 50- 55%. There is moderate to severe mitral stenosis and moderate pulmonary hypertension. She's been afebrile. Hemodynamically stable. The culture reveals no growth. White count 0.6. Hemoglobin 7.6. Platelet count 90,000. INR 2.1. The patient is seen again today 03/05/2017 in follow-up on the selective care unit. She is awake and alert in no acute distress. She is breathing better today as compared to yesterday. Her chest x-ray was reviewed with Dr. Harman. There is improvement in the fluid of the right lung. No need for thoracentesis today. She is maintaining good O2 saturations now on 6 L high flow nasal cannula. She is afebrile. Hemodynamically stable. She remains in atrial fibrillation. We'll resume her warfarin today. White count 2.9. Hemoglobin 7.8. Creatinine is up to 1.69. Blood cultures revealed no growth. She was seen again today 03/06/2017 in follow-up on the selective care unit. She is currently sitting up in the chair at the bedside. She is awake and alert in no acute distress. She denies any worsening shortness of breath, cough or congestion. Down to 5 L high flow nasal cannula and maintaining good O2 saturations in the 90s. She's been afebrile. Hemodynamically stable. Culture reveals no growth. As had a drop in hemoglobin to 6.5 today. Her white count is up to 6.8. Platelets at 96,000. Then 1.76. Veins on Lasix 40 mg IV push every 12 hours. Currently in a -1 L balance. Reevaluated today on 03/07/2017, patient is doing better, breathing easier, remains on oxygen, remains on Lasix, her last chest x-ray showed improvement in her pleural effusion, clinically the patient is feeling improved.hemoglobin today is 7.9, it was 6.5 yesterday.no blood transfusion was given yesterday because the patient declined to be transfused.INR is 1.1, renal profile is about the same with BUN of 49 and creatinine of 1.76. Patient was reevaluated today on 03/08/2017, continues to steadily improve, less shortness of breath, hardly any cough, no wheezing, Remains on diuretics and antibiotics. WBC count is 10.4 hemoglobin is 7.7. Renal profile showed a BUN of 49 creatinine 1.76 relatively unchanged in spite of diuresis. Chest x-ray from yesterday continued to show a small right pleural effusion, and some right lower lobe atelectasis, some component of interstitial edema was noted. Objective - Vital Signs Vital signs: Vital Signs Temp 98.0 F 03/08/17 04:00 Pulse 78 03/08/17 04:00 Resp 17 03/08/17 04:00 BP 125/60 03/08/17 04:00 Pulse Ox 98 03/08/17 04:00 Intake & Output 03/07/17 03/08/17 03/08/17 18:59 06:59 18:59 Intake Total 250 60 160 Output Total 1200 Balance 250 -1140 160 Weight 71.5 kg 69.5 kg Intake: IV 60 0.9 10 Piperacillin-Tazobactam 3 50 .375 gm In Dextrose/Water 1 50ml.bag @ 12.5 mls/hr IVPB Q12HR [facility] Rx#: [id number] Intake, IV Titration 50 Amount Piperacillin-Tazobactam 3 50 .375 gm In Dextrose/Water 1 50ml.bag @ 12.5 mls/hr IVPB Q12HR [facility] Rx#: [id number] Oral 200 160 Output: Urine 1200 Other: Voiding Method Indwelling Catheter Indwelling Catheter - Exam GENERAL EXAM: Alert, active, fairly comfortable in no apparent distress. HEAD: Normocephalic. Alopecia secondary to chemotherapy. EYES: Normal reaction of pupils, equal size. NOSE: Clear with pink turbinates. THROAT: No erythema or exudates. NECK: No masses, no JVD. CHEST: No chest wall deformity. LUNGS: Equal air entry with crackles in the right lung base. Diminished.. CVS: S1 and S2 normal with an audible murmur, irregular rhythm. ABDOMEN: No hepatosplenomegaly, normal bowel sounds, no guarding or rigidity. SPINE: No scoliosis or deformity SKIN: No rashes CENTRAL NERVOUS SYSTEM: No focal deficits, tone is normal in all 4 extremities. EXTREMITIES: There is no peripheral edema. No clubbing, no cyanosis. Peripheral pulses are intact. - Labs CBC & Chem 7: 03/08/17 05:40 03/07/17 05:30 Labs: Abnormal Lab Results - Last 24 Hours (Table) 03/07/17 03/08/17 Range/Units 16:45 05:40 RBC 2.57 L (3.80-5.40) m/uL Hgb 7.7 L (11.4-16.0) gm/dL Hct 24.1 L (34.0-46.0) % RDW 18.1 H (11.5-15.5) % Plt Count 102 L (150-450) k/uL Neutrophils # (Manual) 8.70 H (1.3-7.7) k/uL Lymphocytes # (Manual) 0.73 L (1.0-4.8) k/uL Metamyelocytes # (Man) 0.62 H (0) k/uL Myelocytes # (Manual) 0.10 H (0) k/uL Nucleated RBCs 2 H (0-0) /100 WBC Urine Protein Trace H (Negative) Urine Blood Trace H (Negative) Ur Leukocyte Esterase Trace H (Negative) Urine Bacteria Rare H (None) /hpf Urine Mucus Rare H (None) /hpf Microbiology - Last 24 Hours (Table) 03/07/17 14:55 Urine Culture - Preliminary Urine,Catheterized 03/01/17 06:58 Blood Culture - Final Blood No Growth after 144 hours Assessment and Plan Assessment: 1 acute diastolic CHF with pulmonary edema. The patient is responding nicely to diuretics. His chest x-ray shows improvement in the right pleural effusion. No plans for thoracentesis. Echocardiogram showed good LV function, but suspect there may be a component of valvular heart disease with severe mitral stenosis, pulmonary hypertension was noted, suspect some component of diastolic dysfunction. 2 acute hypoxic respiratory failure secondary to above, improving currently down to 5 L high flow nasal cannula. 3 chronic atrial fibrillation, anticoagulated with warfarin. 4 valvular heart disease with moderate to severe mitral stenosis 5 chronic renal failure, creatinine is stable 6 breast cancer currently undergoing systemic chemotherapy 7 skin cancer, history of 8 gout 9 chronic anemia, multifactorial, normocytic 10 pancytopenia secondary to chemotherapy, we will broaden the spectrum of antibiotics, white count improved to11.5 today, and hemoglobin is 7.7 Recommendation: Consider discharge planning to a rehab facility over the next 2 days.. Time with Patient: Less than 30
--- NOTE | 2017-03-08 12:07 | P.PN ---
Subjective this is a 81-year-old female with complex past medical history detailed below significant for underlying breast cancer on chemotherapy. Patient presented to the emergency room with worsening shortness of breath and fatigue. Patient said that her last chemo was approximately 2 weeks ago. She said that the chemo is making her fatigued. For the past 2 or 3 days patient noted worsening shortness of breath and lower extremity edema. She denies any cough. No fevers or chills. No orthopnea. Patient said that she is known to have heart failure and usually follow-up with cardiology. She is also known to have underlying A. fib and is on anticoagulation with Coumadin. Patient was evaluated in the emergency room and was found to have evidence of fluid overload. BNP was slightly elevated. Patient was started on IV Lasix and admitted to the hospital for further evaluation. 03/03/2017 patient is sitting up in bedside chair. Reports some improvement in her shortness of breath. Patient was unable to have VQ scan completed because she could not lay flat. Her white count has continued to drop to 0.6 and platelets are 63. Patient reports that she does not want to have any further chemotherapy treatments. However she does want to continue to receive treatment for her other medical issues. She reports that the chemotherapy is making her very fatigued and sick. Oncology will be through to evaluate patient. Case was discussed with both patient and her son. Antibiotics adjusted per pulmonar,y Zosyn was added on top of the Levaquin. Pulmonary ordered a chest ultrasound 03/04/2017 patient still having some shortness of breath. Chest ultrasound had shown a 9.9 cm right pleural effusion. Pulmonary service is planning on doing a thoracentesis tomorrow. Coumadin has been placed on hold. Patient denies any chest pain. Denies any nausea or vomiting. Denies bowel movement changes. Has Dill catheter in place. Creatinine has increased from 1.41-1.61. Patient is being diuresed with IV Lasix 03/05/2017 patient is feeling somewhat better her shortness of breath has improved she is complaining of pain in her mouth otherwise she denies any complaints is no fever or chills no headache no dizziness no chest pain no cough no palpitation no nausea or vomiting no abdominal pain no diarrhea or constipation and no urinary symptoms and has a Dill catheter in. 03/06/2017 patient's shortness of breath is improving. She is down to 6 L satting at 97%. Chest x-ray had shown improvement in that right pleural effusion. Thoracentesis was canceled yesterday. She remains on IV Lasix. Pulmonary service did adjust the dose yesterday down to 40 mg every 12 hours. Patient denies any chest pain or nausea vomiting. She is now reporting diarrhea. Stool for C. diff has been ordered. Hemoglobin 6.5 this morning. Oncology did order unit of blood. However, at this time patient has refusing the blood transfusion. Wants to have her CBC checked in a.m. before proceeding with a unit of blood 03/07/2017 patient has had some improvement in her shortness of breath. Remains on IV Lasix. Diarrhea has resolved. She is complaining of some right- sided abdominal pain. Patient describes it as gas pains. She's also having some nausea and dry heaves. Zofran has been given. Stool for C. diff was negative. Her hemoglobin has increased from 6.5-7.9 after IV iron given. She denies any chest pain. Has Dill catheter in place. 03/08/2017 patient is alert and oriented 3 shortness of breath has improved there is no chest pain and no cough pleural effusion is soft and no plans for thoracentesis by pulmonary at this time, patient has pancytopenia with anemia hemoglobin was down to 6.5 with IV iron and hemoglobin has improved only catheter is still in place. Objective - Vital Signs Vital signs: Vital Signs Temp 96.4 F L 03/08/17 08:00 Pulse 87 03/08/17 08:00 Resp 16 03/08/17 11:49 BP 113/54 03/08/17 08:00 Pulse Ox 99 03/08/17 08:00 Intake & Output 03/07/17 03/08/17 03/08/17 18:59 06:59 18:59 Intake Total 250 60 160 Output Total 1200 Balance 250 -1140 160 Weight 71.5 kg 69.5 kg Intake: IV 60 0.9 10 Piperacillin-Tazobactam 3 50 .375 gm In Dextrose/Water 1 50ml.bag @ 12.5 mls/hr IVPB Q12HR [facility] Rx#: [id number] Intake, IV Titration 50 Amount Piperacillin-Tazobactam 3 50 .375 gm In Dextrose/Water 1 50ml.bag @ 12.5 mls/hr IVPB Q12HR [facility] Rx#: [id number] Oral 200 160 Output: Urine 1200 Other: Voiding Method Indwelling Catheter Indwelling Catheter Indwelling Catheter - Exam Head normocephalic and atraumatic, there is evidence of thrush in her mouth Neck supple no JVD no goiter no lymphadenopathy Lungs clear to auscultation bilaterally no wheezing or crackles Heart regular rate and rhythm S1-S2, no rub or gallop Abdomen is soft nontender nondistended positive bowel sounds no hepatosplenomegaly Extremities leg swelling bilaterally 1+ Neuro alert and orientated to 3 - Labs CBC & Chem 7: 03/08/17 05:40 03/07/17 05:30 Labs: Abnormal Lab Results - Last 24 Hours (Table) 03/07/17 03/08/17 Range/Units 16:45 05:40 RBC 2.57 L (3.80-5.40) m/uL Hgb 7.7 L (11.4-16.0) gm/dL Hct 24.1 L (34.0-46.0) % RDW 18.1 H (11.5-15.5) % Plt Count 102 L (150-450) k/uL Neutrophils # (Manual) 8.70 H (1.3-7.7) k/uL Lymphocytes # (Manual) 0.73 L (1.0-4.8) k/uL Metamyelocytes # (Man) 0.62 H (0) k/uL Myelocytes # (Manual) 0.10 H (0) k/uL Nucleated RBCs 2 H (0-0) /100 WBC Urine Protein Trace H (Negative) Urine Blood Trace H (Negative) Ur Leukocyte Esterase Trace H (Negative) Urine Bacteria Rare H (None) /hpf Urine Mucus Rare H (None) /hpf Microbiology - Last 24 Hours (Table) 03/07/17 14:55 Urine Culture - Preliminary Urine,Catheterized 03/01/17 06:58 Blood Culture - Final Blood No Growth after 144 hours Assessment and Plan Plan: 1. Acute diastolic congestive heart failure exacerbation with pulmonary edema. Echo shows an EF of 50-55%, moderate to severe mitral stenosis and moderate pulmonary hypertension. Home a service has decreased Lasix to 40 mg IV every 12 hours. Chest x-ray showing improvement in the right pleural effusion. Pulmonary service following the recommending possible discharge within the next 24-48 hours. Cardiology has signed off 2. Acute hypoxic respiratory failure secondary to CHF exacerbation 3. Chronic persistent atrial fibrillation: Continue Coumadin. Monitor closely due to patient's thrombocytopenia. Appreciate oncology's input. They are recommending to continue the Coumadin as long as platelets are above 50,000. INR is 1.1. Will give Coumadin 5 mg tonight and monitor PT/INR daily 4. Pancytopenia most likely chemotherapy-induced. Currently on broad-spectrum antibiotics per pulmonary service 5. Obstructive uropathy status post Dill catheter insertion 6. Right breast cancer had been receiving chemotherapy. Patient expressed that she does not want any further chemotherapy treatment. Oncology following and appreciate their input 7. Right pleural effusion: Patient scheduled for right-sided thoracentesis tomorrow. Coumadin on hold for procedure. 8. chronic kidney disease, stage III. Creatinine is 1.76. Monitor closely while on diuretics 9. Diarrhea. Resolved. Stool for C. diff negative 10. Chronic anemia secondary to chemotherapy, patient's breast cancer, and iron deficiency. hemoglobin has dropped 6.5. Patient refusing blood transfusion. Patient was given 1 dose of IV iron. She was started on oral iron. Hemoglobin has gone up from 6.5-7.9 11. Leukocytosis: Patient is still covered with antibiotics Levaquin and Zosyn. Check urinalysis for UTI Anticipating discharge to ECF possibly Friday We'll add [place] for pain control
[2017-03-08] MEDS: ATORVASTATIN 10 MG TAB PO SCH (20:35)
[2017-03-08] MEDS: ALPRAZolam 0.25 MG TAB PO PRN (20:35)
[2017-03-09] MEDS: FUROSEMIDE 10 MG/ML 4 ML VIAL IV SCH ×2 (05:55→16:31)
[2017-03-09] MEDS: NYSTATIN 100,000 UNIT/ML SUSP 500,000 UNIT/5 ML CUP PO SCH ×4 (08:42→19:46)
[2017-03-09] MEDS: NON-FORMULARY DRUG (Mirabegron [Myrbetriq] 25 MG) PO SCH (08:42)
[2017-03-09] MEDS: PIPERACILLIN-TAZOBACTAM 3.375 GM in DEXTROSE/WATER 1 50ML.BAG IVPB SCH ×2 (08:46→19:54)
[2017-03-09] MEDS: ALLOPURINOL 100 MG TAB PO SCH (08:47)
[2017-03-09] MEDS: LEVOFLOXACIN 500 MG TAB PO SCH (08:47)
[2017-03-09] MEDS: METOPROLOL TARTRATE 25 MG TAB PO SCH ×3 (08:47→19:54)
[2017-03-09] MEDS: POTASSIUM CHLORIDE ER 10 MEQ TAB.ER.PRT PO SCH (08:47)
[2017-03-09] MEDS: FERROUS SULFATE 325 MG TAB PO SCH ×2 (08:48→19:54)
--- NOTE | 2017-03-09 10:44 | P.PN ---
Subjective Progress Note Date: 03/09/17 Principal diagnosis: acute hypoxic respiratory failure secondary to congestive heart failure, diastolic in nature, secondary to valvular heart disease. Acute hypoxic respiratory failure secondary to congestive heart failure, diastolic in nature, secondary to valvular heart disease. Breast cancer recurrent. Right pleural effusion 81-year-old female patient, known history of breast cancer currently undergoing systemic chemotherapy, presented to the ED for increased shortness of breath. The patient was getting progressively more dyspneic over the past 2-3 days. No cough. No sputum production. No fever or chills. No pleurisy. She reported orthopnea. She also reported progressive increase in lower extremity edema. She was chronic atrial fibrillation and she is on anticoagulation with warfarin and she uses digoxin for rate control. She also has history of mitral stenosis. Her chest x-ray was consistent with acute CHF/pulmonary edema. The patient was started on IV Lasix. She has diuresed adequately and she is already feeling better. No new complaints otherwise for now. She seems to be quite fatigued and she is expressing significant amount of side effects from systemic chemotherapy including her last weakness, diminished appetite and alopecia. Her concerns of troponin was 0.047. BNP level was at 1700. She has also chronic renal failure. Creatinine is at 1.28 which is improved Patient was reevaluated today on 03/03/2017, continues to have shortness of breath , felt better when she sat up in the chair, she was feeling much worse when she was laying flat. Echocardiogram was reviewed, chest x-ray is showing worsening right sided pleural effusion and possible pulmonary edema. CBC is showing pancytopenia with low WBC count of 0.6 hemoglobin is 8.1 and platelets are 63, 000.patient is being followed by oncology.after reviewing the chest x-ray today , recommended increasing the Lasix, and after reviewing the WBC count, I added Zosyn in addition to her Levaquin which was initiated on admission. The patient is seen again today 03/04/2017 in follow-up on the selective care unit. She is currently sitting up in the chair at the bedside. She is awake and alert in no acute distress. She is still quite short of breath with minimal exertion. Wound of the right chest revealed a significant pleural effusion measuring 9.9 cm. She is requiring 12 L of high flow nasal cannula to maintain O2 saturations in the 90s. She is maintained on bronchodilators, antibiotics in the form of Levaquin and Zosyn, IV diuretics. Echocardiogram revealed preserved left ventricular systolic function with ejection fraction 50- 55%. There is moderate to severe mitral stenosis and moderate pulmonary hypertension. She's been afebrile. Hemodynamically stable. The culture reveals no growth. White count 0.6. Hemoglobin 7.6. Platelet count 90,000. INR 2.1. The patient is seen again today 03/05/2017 in follow-up on the selective care unit. She is awake and alert in no acute distress. She is breathing better today as compared to yesterday. Her chest x-ray was reviewed with Dr. Harman. There is improvement in the fluid of the right lung. No need for thoracentesis today. She is maintaining good O2 saturations now on 6 L high flow nasal cannula. She is afebrile. Hemodynamically stable. She remains in atrial fibrillation. We'll resume her warfarin today. White count 2.9. Hemoglobin 7.8. Creatinine is up to 1.69. Blood cultures revealed no growth. She was seen again today 03/06/2017 in follow-up on the selective care unit. She is currently sitting up in the chair at the bedside. She is awake and alert in no acute distress. She denies any worsening shortness of breath, cough or congestion. Down to 5 L high flow nasal cannula and maintaining good O2 saturations in the 90s. She's been afebrile. Hemodynamically stable. Culture reveals no growth. As had a drop in hemoglobin to 6.5 today. Her white count is up to 6.8. Platelets at 96,000. Then 1.76. Veins on Lasix 40 mg IV push every 12 hours. Currently in a -1 L balance. Reevaluated today on 03/07/2017, patient is doing better, breathing easier, remains on oxygen, remains on Lasix, her last chest x-ray showed improvement in her pleural effusion, clinically the patient is feeling improved.hemoglobin today is 7.9, it was 6.5 yesterday.no blood transfusion was given yesterday because the patient declined to be transfused.INR is 1.1, renal profile is about the same with BUN of 49 and creatinine of 1.76. Patient was reevaluated today on 03/08/2017, continues to steadily improve, less shortness of breath, hardly any cough, no wheezing, Remains on diuretics and antibiotics. WBC count is 10.4 hemoglobin is 7.7. Renal profile showed a BUN of 49 creatinine 1.76 relatively unchanged in spite of diuresis. Chest x-ray from yesterday continued to show a small right pleural effusion, and some right lower lobe atelectasis, some component of interstitial edema was noted. Patient was reevaluated today on 03/09/2017, feeling much better, breathing a lot easier, remains on oxygen,Global is 7.7 today. WBC count of 10.4.renal profile is about the same with a BUN of 49 and creatinine of 1.76. Objective - Vital Signs Vital signs: Vital Signs Temp 97.1 F L 03/09/17 00:00 Pulse 73 03/09/17 08:00 Resp 16 03/09/17 08:00 BP 123/56 03/09/17 08:00 Pulse Ox 96 03/09/17 08:00 Intake & Output 03/08/17 03/09/17 03/09/17 18:59 06:59 18:59 Intake Total 940 0 Output Total 900 700 Balance 40 -700 Weight 68.9 kg Intake: Intake, IV Titration 100 Amount Piperacillin-Tazobactam 3 100 .375 gm In Dextrose/Water 1 50ml.bag @ 12.5 mls/hr IVPB Q12HR [facility] Rx#: [id number] Oral 840 0 Output: Urine 900 700 Other: Voiding Method Indwelling Catheter Indwelling Catheter Indwelling Catheter # Bowel Movements 1 - Exam GENERAL EXAM: Alert, active, fairly comfortable in no apparent distress. HEAD: Normocephalic. Alopecia secondary to chemotherapy. EYES: Normal reaction of pupils, equal size. NOSE: Clear with pink turbinates. THROAT: No erythema or exudates. NECK: No masses, no JVD. CHEST: No chest wall deformity. LUNGS: Equal air entry with crackles in the right lung base. Diminished.. CVS: S1 and S2 normal with an audible murmur, irregular rhythm. ABDOMEN: No hepatosplenomegaly, normal bowel sounds, no guarding or rigidity. SPINE: No scoliosis or deformity SKIN: No rashes CENTRAL NERVOUS SYSTEM: No focal deficits, tone is normal in all 4 extremities. EXTREMITIES: There is no peripheral edema. No clubbing, no cyanosis. Peripheral pulses are intact. - Labs CBC & Chem 7: 03/08/17 05:40 03/07/17 05:30 Labs: Microbiology - Last 24 Hours (Table) 03/07/17 14:55 Urine Culture - Final Urine,Catheterized Assessment and Plan Assessment: 1 acute diastolic CHF with pulmonary edema. The patient is responding nicely to diuretics. His chest x-ray shows improvement in the right pleural effusion. No plans for thoracentesis. Echocardiogram showed good LV function, but suspect there may be a component of valvular heart disease with severe mitral stenosis, pulmonary hypertension was noted, suspect some component of diastolic dysfunction. 2 acute hypoxic respiratory failure secondary to above, improving currently down to 5 L high flow nasal cannula. 3 chronic atrial fibrillation, anticoagulated with warfarin. 4 valvular heart disease with moderate to severe mitral stenosis 5 chronic renal failure, creatinine is stable 6 breast cancer currently undergoing systemic chemotherapy 7 skin cancer, history of 8 gout 9 chronic anemia, multifactorial, normocytic 10 pancytopenia secondary to chemotherapy, we will broaden the spectrum of antibiotics, white count improved to11.5 today, and hemoglobin is 7.7 Recommendation: follow-up chest x-ray was ordered to be done in a.m., and if not any worse, patient could be considered for discharge planning to a rehab facility. Time with Patient: Less than 30
--- NOTE | 2017-03-09 12:58 | P.PN ---
Subjective Progress Note Date: 03/09/17 this is a 81-year-old female with complex past medical history detailed below significant for underlying breast cancer on chemotherapy. Patient presented to the emergency room with worsening shortness of breath and fatigue. Patient said that her last chemo was approximately 2 weeks ago. She said that the chemo is making her fatigued. For the past 2 or 3 days patient noted worsening shortness of breath and lower extremity edema. She denies any cough. No fevers or chills. No orthopnea. Patient said that she is known to have heart failure and usually follow-up with cardiology. She is also known to have underlying A. fib and is on anticoagulation with Coumadin. Patient was evaluated in the emergency room and was found to have evidence of fluid overload. BNP was slightly elevated. Patient was started on IV Lasix and admitted to the hospital for further evaluation. 03/03/2017 patient is sitting up in bedside chair. Reports some improvement in her shortness of breath. Patient was unable to have VQ scan completed because she could not lay flat. Her white count has continued to drop to 0.6 and platelets are 63. Patient reports that she does not want to have any further chemotherapy treatments. However she does want to continue to receive treatment for her other medical issues. She reports that the chemotherapy is making her very fatigued and sick. Oncology will be through to evaluate patient. Case was discussed with both patient and her son. Antibiotics adjusted per pulmonar,y Zosyn was added on top of the Levaquin. Pulmonary ordered a chest ultrasound 03/04/2017 patient still having some shortness of breath. Chest ultrasound had shown a 9.9 cm right pleural effusion. Pulmonary service is planning on doing a thoracentesis tomorrow. Coumadin has been placed on hold. Patient denies any chest pain. Denies any nausea or vomiting. Denies bowel movement changes. Has Dill catheter in place. Creatinine has increased from 1.41-1.61. Patient is being diuresed with IV Lasix 03/05/2017 patient is feeling somewhat better her shortness of breath has improved she is complaining of pain in her mouth otherwise she denies any complaints is no fever or chills no headache no dizziness no chest pain no cough no palpitation no nausea or vomiting no abdominal pain no diarrhea or constipation and no urinary symptoms and has a Dill catheter in. 03/06/2017 patient's shortness of breath is improving. She is down to 6 L satting at 97%. Chest x-ray had shown improvement in that right pleural effusion. Thoracentesis was canceled yesterday. She remains on IV Lasix. Pulmonary service did adjust the dose yesterday down to 40 mg every 12 hours. Patient denies any chest pain or nausea vomiting. She is now reporting diarrhea. Stool for C. diff has been ordered. Hemoglobin 6.5 this morning. Oncology did order unit of blood. However, at this time patient has refusing the blood transfusion. Wants to have her CBC checked in a.m. before proceeding with a unit of blood 03/07/2017 patient has had some improvement in her shortness of breath. Remains on IV Lasix. Diarrhea has resolved. She is complaining of some right- sided abdominal pain. Patient describes it as gas pains. She's also having some nausea and dry heaves. Zofran has been given. Stool for C. diff was negative. Her hemoglobin has increased from 6.5-7.9 after IV iron given. She denies any chest pain. Has Dill catheter in place. 03/08/2017 patient is alert and oriented 3 shortness of breath has improved there is no chest pain and no cough pleural effusion is soft and no plans for thoracentesis by pulmonary at this time, patient has pancytopenia with anemia hemoglobin was down to 6.5 with IV iron and hemoglobin has improved only catheter is still in place. on 03/09/2017 patient is alert and oriented in no apparent distress shortness of breath improved complaining of loose stool otherwise no complaints at this time Objective - Vital Signs Vital signs: Vital Signs Temp 97.1 F L 03/09/17 00:00 Pulse 78 03/09/17 11:44 Resp 16 03/09/17 11:44 BP 112/57 03/09/17 11:44 Pulse Ox 99 03/09/17 11:44 Intake & Output 03/08/17 03/09/17 03/09/17 18:59 06:59 18:59 Intake Total 940 0 100 Output Total 900 700 Balance 40 -700 100 Weight 68.9 kg Intake: Intake, IV Titration 100 Amount Piperacillin-Tazobactam 3 100 .375 gm In Dextrose/Water 1 50ml.bag @ 12.5 mls/hr IVPB Q12HR [facility] Rx#: [id number] Oral 840 0 100 Output: Urine 900 700 Other: Voiding Method Indwelling Catheter Indwelling Catheter Indwelling Catheter # Voids 0 # Bowel Movements 1 - Exam Head normocephalic and atraumatic, there is evidence of thrush in her mouth Neck supple no JVD no goiter no lymphadenopathy Lungs clear to auscultation bilaterally no wheezing or crackles Heart regular rate and rhythm S1-S2, no rub or gallop Abdomen is soft nontender nondistended positive bowel sounds no hepatosplenomegaly Extremities leg swelling bilaterally 1+ Neuro alert and orientated to 3 - Labs CBC & Chem 7: 03/08/17 05:40 03/07/17 05:30 Labs: Microbiology - Last 24 Hours (Table) 03/07/17 14:55 Urine Culture - Final Urine,Catheterized Assessment and Plan Plan: 1. Acute diastolic congestive heart failure exacerbation with pulmonary edema. Echo shows an EF of 50-55%, moderate to severe mitral stenosis and moderate pulmonary hypertension. Home a service has decreased Lasix to 40 mg IV every 12 hours. Chest x-ray showing improvement in the right pleural effusion. Pulmonary service following the recommending possible discharge within the next 24-48 hours. Cardiology has signed off 2. Acute hypoxic respiratory failure secondary to CHF exacerbation 3. Chronic persistent atrial fibrillation: Continue Coumadin. Monitor closely due to patient's thrombocytopenia. Appreciate oncology's input. They are recommending to continue the Coumadin as long as platelets are above 50,000. INR is 1.1. Will give Coumadin 5 mg tonight and monitor PT/INR daily 4. Pancytopenia most likely chemotherapy-induced. Currently on broad-spectrum antibiotics per pulmonary service 5. Obstructive uropathy status post Dill catheter insertion 6. Right breast cancer had been receiving chemotherapy. Patient expressed that she does not want any further chemotherapy treatment. Oncology following and appreciate their input 7. Right pleural effusion: Patient scheduled for right-sided thoracentesis tomorrow. Coumadin on hold for procedure. 8. chronic kidney disease, stage III. Creatinine is 1.76. Monitor closely while on diuretics 9. Diarrhea. Resolved. Stool for C. diff negative 10. Chronic anemia secondary to chemotherapy, patient's breast cancer, and iron deficiency. hemoglobin has dropped 6.5. Patient refusing blood transfusion. Patient was given 1 dose of IV iron. She was started on oral iron. Hemoglobin has gone up from 6.5-7.9 11. Leukocytosis: Patient is still covered with antibiotics Levaquin and Zosyn. Check urinalysis for UTI Repeat CXR tomorrow Anticipating discharge to ECF possibly Friday We'll add [place] for pain control
[2017-03-09 14:11] LABS: Anisocytosis Slight; Basophils # (A) 0.1 k/uL (0-0.2); Basophils % (A) 1 %; Eosinophils % (A) 0 %; HCT 25.5 % (34.0-46.0); HGB 7.8 gm/dL (11.4-16.0); Hypochromasia Moderate; Lymphocytes # (A) 0.6 k/uL (1.0-4.8); Lymphocytes % (A) 5 %; MCH 30.2 pg (25.0-35.0); MCHC 30.7 g/dL (31.0-37.0); MCV 98.4 fL (80.0-100.0); Macrocytosis Slight; Mean Platelet Volume 9.1; Monocytes # (A) 0.6 k/uL (0-1.0); Monocytes % (A) 5 %; Neutrophils # (A) 9.7 k/uL (1.3-7.7); Neutrophils % (A) 88 %; Platelet Count 114 k/uL (150-450); RBC 2.59 m/uL (3.80-5.40); RDW 19.8 % (11.5-15.5); WBC 11.1 k/uL (3.8-10.6)
[2017-03-09 14:21] LABS: Albumin 2.5 g/dL (3.5-5.0); Calcium 8.9 mg/dL (8.4-10.2); Potassium 3.8 mmol/L (3.5-5.1); Total Bilirubin 0.8 mg/dL (0.2-1.3); Total Protein 4.6 g/dL (6.3-8.2)
[2017-03-09] MEDS: ATORVASTATIN 10 MG TAB PO SCH (19:54)
[2017-03-09] MEDS: ALPRAZolam 0.25 MG TAB PO PRN (19:54)
[2017-03-10] MEDS: FUROSEMIDE 10 MG/ML 4 ML VIAL IV SCH (06:02)
--- NOTE | 2017-03-10 08:07 | XR ---
EXAMINATION TYPE: XR chest 1V portable DATE OF EXAM: 03/10/2017 Comparison: 03/07/2017 Clinical History: 81-year-old female CHF, pleural effusions Findings: Heart mildly enlarged. Left anterior chest wall injection port with catheter tip at the mid SVC level . Diffuse interstitial/vascular prominence similar to slightly improved. Small right pleural effusion with adjacent opacity also slightly improved. Surgical clips in the left axilla. Impression: Exam stable to minimally improved with mild residual interstitial edema/pulmonary vascular congestion . Small right pleural effusion with adjacent atelectasis and/or consolidation.
[2017-03-10] MEDS: NON-FORMULARY DRUG (Mirabegron [Myrbetriq] 25 MG) PO SCH (08:49)
[2017-03-10] MEDS: NYSTATIN 100,000 UNIT/ML SUSP 500,000 UNIT/5 ML CUP PO SCH ×4 (08:52→19:55)
[2017-03-10] MEDS: METOPROLOL TARTRATE 25 MG TAB PO SCH ×3 (08:52→19:56)
[2017-03-10] MEDS: POTASSIUM CHLORIDE ER 10 MEQ TAB.ER.PRT PO SCH (08:52)
[2017-03-10] MEDS: FERROUS SULFATE 325 MG TAB PO SCH ×2 (08:52→19:56)
[2017-03-10] MEDS: PIPERACILLIN-TAZOBACTAM 3.375 GM in DEXTROSE/WATER 1 50ML.BAG IVPB SCH ×2 (08:53→19:55)
[2017-03-10] MEDS: ALLOPURINOL 100 MG TAB PO SCH (08:53)
[2017-03-10] MEDS: LOPERAMIDE 2 MG CAP PO PRN (12:25)
[2017-03-10 12:41] LABS: Anisocytosis Slight; HCT 26.4 % (34.0-46.0); HGB 8.3 gm/dL (11.4-16.0); Hypochromasia Slight; MCH 29.8 pg (25.0-35.0); MCHC 31.6 g/dL (31.0-37.0); MCV 94.2 fL (80.0-100.0); Macrocytosis Slight; Mean Platelet Volume 8.1; Poikilocytosis Slight; RDW 18.2 % (11.5-15.5); WBC 12.1 k/uL (3.8-10.6)
[2017-03-10 12:43] LABS: Albumin 2.7 g/dL (3.5-5.0)
[2017-03-10 12:49] LABS: Potassium 4.3 mmol/L (3.5-5.1)
--- NOTE | 2017-03-10 12:56 | P.PN ---
Subjective Progress Note Date: 03/10/17 this is a 81-year-old female with complex past medical history detailed below significant for underlying breast cancer on chemotherapy. Patient presented to the emergency room with worsening shortness of breath and fatigue. Patient said that her last chemo was approximately 2 weeks ago. She said that the chemo is making her fatigued. For the past 2 or 3 days patient noted worsening shortness of breath and lower extremity edema. She denies any cough. No fevers or chills. No orthopnea. Patient said that she is known to have heart failure and usually follow-up with cardiology. She is also known to have underlying A. fib and is on anticoagulation with Coumadin. Patient was evaluated in the emergency room and was found to have evidence of fluid overload. BNP was slightly elevated. Patient was started on IV Lasix and admitted to the hospital for further evaluation. 03/03/2017 patient is sitting up in bedside chair. Reports some improvement in her shortness of breath. Patient was unable to have VQ scan completed because she could not lay flat. Her white count has continued to drop to 0.6 and platelets are 63. Patient reports that she does not want to have any further chemotherapy treatments. However she does want to continue to receive treatment for her other medical issues. She reports that the chemotherapy is making her very fatigued and sick. Oncology will be through to evaluate patient. Case was discussed with both patient and her son. Antibiotics adjusted per pulmonar,y Zosyn was added on top of the Levaquin. Pulmonary ordered a chest ultrasound 03/04/2017 patient still having some shortness of breath. Chest ultrasound had shown a 9.9 cm right pleural effusion. Pulmonary service is planning on doing a thoracentesis tomorrow. Coumadin has been placed on hold. Patient denies any chest pain. Denies any nausea or vomiting. Denies bowel movement changes. Has Dill catheter in place. Creatinine has increased from 1.41-1.61. Patient is being diuresed with IV Lasix 03/06/2017 patient's shortness of breath is improving. She is down to 6 L satting at 97%. Chest x-ray had shown improvement in that right pleural effusion. Thoracentesis was canceled yesterday. She remains on IV Lasix. Pulmonary service did adjust the dose yesterday down to 40 mg every 12 hours. Patient denies any chest pain or nausea vomiting. She is now reporting diarrhea. Stool for C. diff has been ordered. Hemoglobin 6.5 this morning. Oncology did order unit of blood. However, at this time patient has refusing the blood transfusion. Wants to have her CBC checked in a.m. before proceeding with a unit of blood 03/07/2017 patient has had some improvement in her shortness of breath. Remains on IV Lasix. Diarrhea has resolved. She is complaining of some right- sided abdominal pain. Patient describes it as gas pains. She's also having some nausea and dry heaves. Zofran has been given. Stool for C. diff was negative. Her hemoglobin has increased from 6.5-7.9 after IV iron given. She denies any chest pain. Has Dill catheter in place 03/10/2017 patient reports improvement in her shortness of breath. She still had 1 loose stool this morning. Stool for C. diff was negative. Chest x-ray shows stable minimal improvement in mild residual interstitial edema/pulmonary vascular congestion. Patient does not feel ready for discharge today. Imodium will be given. Urine culture and blood cultures remain negative. Objective - Vital Signs Vital signs: Vital Signs Temp 96.8 F L 03/10/17 08:00 Pulse 93 03/10/17 12:00 Resp 16 03/10/17 12:00 BP 120/68 03/10/17 12:00 Pulse Ox 99 03/10/17 12:00 Intake & Output 03/09/17 03/10/17 03/10/17 18:59 06:59 18:59 Intake Total 500 650 300 Output Total 500 1000 Balance 0 -350 300 Weight 69 kg Intake: IV 50 Piperacillin-Tazobactam 3 50 .375 gm In Dextrose/Water 1 50ml.bag @ 12.5 mls/hr IVPB Q12HR [facility] Rx#: [id number] Oral 500 600 300 Output: Urine 500 1000 Uretheral (Dill) 1000 Other: Voiding Method Indwelling Catheter Indwelling Catheter Indwelling Catheter # Voids 0 # Bowel Movements 1 - Exam Head normocephalic Neck supple Lungs diminished Heart regular rate and rhythm S1-S2, no rub or gallop Abdomen is soft nontender positive bowel sounds Extremities leg swelling bilaterally Neuro alert and orientated to 3 - Labs CBC & Chem 7: 03/10/17 12:22 03/10/17 12:22 Labs: Abnormal Lab Results - Last 24 Hours (Table) 03/09/17 03/09/17 03/10/17 Range/Units 13:56 13:56 12:22 WBC 11.1 H 12.1 H (3.8-10.6) k/uL RBC 2.59 L 2.80 L (3.80-5.40) m/uL Hgb 7.8 L 8.3 L (11.4-16.0) gm/dL Hct 25.5 L 26.4 L (34.0-46.0) % MCHC 30.7 L (31.0-37.0) g/dL RDW 19.8 H 18.2 H (11.5-15.5) % Plt Count 114 L (150-450) k/uL Neutrophils # 9.7 H (1.3-7.7) k/uL Lymphocytes # 0.6 L (1.0-4.8) k/uL Carbon Dioxide 31 H (22-30) mmol/L BUN 49 H (7-17) mg/dL Creatinine 1.90 H (0.52-1.04) mg/dL Glucose 140 H (74-99) mg/dL AST (14-36) U/L Total Protein 4.6 L (6.3-8.2) g/dL Albumin 2.5 L (3.5-5.0) g/dL 03/10/17 Range/Units 12:22 WBC (3.8-10.6) k/uL RBC (3.80-5.40) m/uL Hgb (11.4-16.0) gm/dL Hct (34.0-46.0) % MCHC (31.0-37.0) g/dL RDW (11.5-15.5) % Plt Count (150-450) k/uL Neutrophils # (1.3-7.7) k/uL Lymphocytes # (1.0-4.8) k/uL Carbon Dioxide (22-30) mmol/L BUN 51 H (7-17) mg/dL Creatinine 1.99 H (0.52-1.04) mg/dL Glucose (74-99) mg/dL AST 41 H (14-36) U/L Total Protein 5.0 L (6.3-8.2) g/dL Albumin 2.7 L (3.5-5.0) g/dL Assessment and Plan Assessment: 1. Acute diastolic congestive heart failure exacerbation with pulmonary edema. Echo shows an EF of 50-55%, moderate to severe mitral stenosis and moderate pulmonary hypertension. Home a service has decreased Lasix to 40 mg IV every 12 hours. Chest x-ray showing improvement in the right pleural effusion. Pulmonary service following the recommending possible discharge within the next 24-48 hours. Cardiology has signed off 2. Acute hypoxic respiratory failure secondary to CHF exacerbation 3. Chronic persistent atrial fibrillation: Continue Coumadin. Monitor closely due to patient's thrombocytopenia. Appreciate oncology's input. They are recommending to continue the Coumadin as long as platelets are above 50,000. Will give Coumadin 5 mg tonight and monitor PT/INR daily 4. Pancytopenia most likely chemotherapy-induced. Currently on broad-spectrum antibiotics per pulmonary service 5. Obstructive uropathy status post Dill catheter insertion 6. Right breast cancer had been receiving chemotherapy. Patient expressed that she does not want any further chemotherapy treatment. Oncology following and appreciate their input 7. Right pleural effusion: Patient scheduled for right-sided thoracentesis tomorrow. Coumadin on hold for procedure. 8. chronic kidney disease, stage III. Creatinine is 1.90. Monitor closely while on diuretics 9. Diarrhea. Stool for C. diff negative. We'll add Imodium 10. Chronic anemia secondary to chemotherapy, patient's breast cancer, and iron deficiency. hemoglobin has dropped 6.5. Patient refusing blood transfusion. Patient was given 1 dose of IV iron. She was started on oral iron. Hemoglobin has gone up from 6.5-7.9 11. Leukocytosis: Patient is still covered with antibiotics Levaquin and Zosyn. Urine culture and blood culture negative Anticipating discharge to ECF possibly Friday I performed an examination of the patient and discussed their management with the physician Pediatric Clinical Nurse Specialist. I have reviewed the Physician Pediatric Clinical Nurse Specialist's notes and agree with the documented findings and plan of care
[2017-03-10 13:53] LABS: INR 1.6 (<1.2); Prothrombin Time 15.2 sec (9.0-12.0)
[2017-03-10 13:54] LABS: Band Neutrophils % 1 %; Lymphocytes # (M) 0.48 k/uL (1.0-4.8); Metamyelocytes # (M) 0.12 k/uL (0); Metamyelocytes % 1 %; Monocytes # (M) 0.73 k/uL (0-1.0); Myelocytes # (M) 0.36 k/uL (0); Myelocytes % 3 %; Neutrophils % (M) 87 %; Nucleated Red Blood Cells 0 /100 WBC (0-0); Total Cells Counted 200
[2017-03-10 13:55] LABS: Mixed Population RBC Present; Ovalocytes Present; Platelet Count 92 k/uL (150-450); Polychromasia Present
[2017-03-10 13:56] LABS: Toxic Granulation Present
--- NOTE | 2017-03-10 15:57 | P.PN ---
Subjective Progress Note Date: 03/10/17 Principal diagnosis: Shortness of breath Progress note dated 03/10/2017 This is an 81-year-old female with a history of acute diastolic CHF with pulmonary edema. The patient also has a history of valvular heart disease with severe mitral stenosis, pulmonary hypertension and acute hypoxemic respiratory failure. In addition, the patient has a history of chronic atrial fibrillation and valvular heart disease chronic renal fire skin cancer gout, chronic anemia, pancytopenia secondary to chemotherapy for her breast cancer. The patient's doing better. Less short of breath. Chest x-ray shows improvement in the patient's volume status. The patient sitting up in bed. Not wearing her oxygen. Does not appear to be short of breath or tachypnea or dyspneic. Denies any cough or phlegm production. No fever or chills. Objective - Vital Signs Vital signs: Vital Signs Temp 96.8 F L 03/10/17 08:00 Pulse 93 03/10/17 12:00 Resp 16 03/10/17 15:46 BP 120/68 03/10/17 12:00 Pulse Ox 99 03/10/17 12:00 Intake & Output 03/09/17 03/10/17 03/10/17 18:59 06:59 18:59 Intake Total 500 650 560 Output Total 500 1000 Balance 0 -350 560 Weight 69 kg Intake: IV 50 Piperacillin-Tazobactam 3 50 .375 gm In Dextrose/Water 1 50ml.bag @ 12.5 mls/hr IVPB Q12HR CELIO Rx#: [id number] Oral 500 600 560 Output: Urine 500 1000 Uretheral (Dill) 1000 Other: Voiding Method Indwelling Catheter Indwelling Catheter Indwelling Catheter # Voids 0 # Bowel Movements 1 - Exam No acute distress, oriented 3. HEENT examination is grossly unremarkable. Mucous membranes are moist. No oral lesions. Neck supple. Full range of motion. No adenopathy thyromegaly or neck vein distention. Cardiovascular examination reveals a irregular rhythm and rate. S1-S2 normal. Soft systolic murmurs heard. Lungs reveal bibasilar fine crackles. Breath sounds are equal bilaterally. No rhonchi. No wheezes. There is mild prolongation on forced maneuver.. Abdomen soft bowel sounds are heard. No masses or tenderness. Extremities are intact. No cyanosis clubbing or edema. Skin is without rash or lesion. Neurologic examination is brief but nonfocal. - Labs CBC & Chem 7: 03/10/17 12:22 03/10/17 12:22 Labs: Abnormal Lab Results - Last 24 Hours (Table) 03/10/17 03/10/17 03/10/17 Range/Units 12:22 12:22 13:15 WBC 12.1 H (3.8-10.6) k/uL RBC 2.80 L (3.80-5.40) m/uL Hgb 8.3 L (11.4-16.0) gm/dL Hct 26.4 L (34.0-46.0) % RDW 18.2 H (11.5-15.5) % Plt Count 92 L (150-450) k/uL Neutrophils # (Manual) 10.60 H (1.3-7.7) k/uL Lymphocytes # (Manual) 0.48 L (1.0-4.8) k/uL Metamyelocytes # (Man) 0.12 H (0) k/uL Myelocytes # (Manual) 0.36 H (0) k/uL PT 15.2 H (9.0-12.0) sec INR 1.6 H (<1.2) BUN 51 H (7-17) mg/dL Creatinine 1.99 H (0.52-1.04) mg/dL AST 41 H (14-36) U/L Total Protein 5.0 L (6.3-8.2) g/dL Albumin 2.7 L (3.5-5.0) g/dL Assessment and Plan (1) Breast cancer Current Visit: Yes Status: Acute Code(s): C50.919 - MALIGNANT NEOPLASM OF UNSP SITE OF UNSPECIFIED FEMALE BREAST SNOMED Code(s): 588677444 (2) Skin cancer Current Visit: Yes Status: Acute Code(s): C44.90 - UNSPECIFIED MALIGNANT NEOPLASM OF SKIN, UNSPECIFIED SNOMED Code(s): 831743863 (3) Gout Current Visit: Yes Status: Acute Code(s): M10.9 - GOUT, UNSPECIFIED SNOMED Code(s): 18517070 (4) Pancytopenia Current Visit: Yes Status: Acute Code(s): D61.818 - OTHER PANCYTOPENIA SNOMED Code(s): 668434810 (5) Hypoxemic respiratory failure, chronic Current Visit: Yes Status: Acute Code(s): J96.11 - CHRONIC RESPIRATORY FAILURE WITH HYPOXIA SNOMED Code(s): 815638380 (6) Triple negative malignant neoplasm of breast Current Visit: Yes Status: Acute Priority: High Code(s): C50.919 - MALIGNANT NEOPLASM OF UNSP SITE OF UNSPECIFIED FEMALE BREAST SNOMED Code(s): 540731304 (7) Acute on chronic combined systolic and diastolic CHF (congestive heart failure) Current Visit: No Status: Acute Code(s): I50.43 - ACUTE ON CHRONIC COMBINED SYSTOLIC AND DIASTOLIC HRT FAIL SNOMED Code(s): 768602545304714 (8) Acute renal failure Current Visit: No Status: Acute Code(s): N17.9 - ACUTE KIDNEY FAILURE, UNSPECIFIED SNOMED Code(s): 78120794 (9) Anemia due to acute blood loss Current Visit: No Status: Acute Code(s): D62 - ACUTE POSTHEMORRHAGIC ANEMIA SNOMED Code(s): 761447610 (10) Congestive heart failure Current Visit: No Status: Acute Code(s): I50.9 - HEART FAILURE, UNSPECIFIED SNOMED Code(s): 42949385 (11) Moderate to severe pulmonary hypertension Current Visit: No Status: Acute Code(s): I27.2 - OTHER SECONDARY PULMONARY HYPERTENSION * DO NOT USE * SNOMED Code(s): 60552159 (12) Severe mitral valve stenosis Current Visit: No Status: Acute Code(s): I05.0 - RHEUMATIC MITRAL STENOSIS SNOMED Code(s): 40420690 Plan: The patient seems be doing much better. Hopefully discharge soon. We'll leave that up to the primary. The patient's volume status on chest x-ray is improved. She sitting up in bed. Not requiring any oxygen therapy. The patient's medications labs and x-rays are all reviewed. Time with Patient: Less than 30
[2017-03-10] MEDS ORDERED: FUROSEMIDE 40 MG TAB PO SCH (16:00)
[2017-03-10] MEDS ORDERED: WARFARIN 5 MG TAB PO ONE (18:00)
[2017-03-10] MEDS: ATORVASTATIN 10 MG TAB PO SCH (19:56)
[2017-03-10] MEDS: ALPRAZolam 0.25 MG TAB PO PRN (19:56)
[2017-03-11 06:21] LABS: Anisocytosis Slight; Basophils # (A) 0.1 k/uL (0-0.2); Basophils % (A) 1 %; Eosinophils % (A) 0 %; HCT 24.9 % (34.0-46.0); HGB 7.7 gm/dL (11.4-16.0); Hypochromasia Moderate; Lymphocytes # (A) 0.8 k/uL (1.0-4.8); Lymphocytes % (A) 9 %; MCH 29.8 pg (25.0-35.0); Macrocytosis Slight; Mean Platelet Volume 9.5; Monocytes # (A) 0.4 k/uL (0-1.0); Monocytes % (A) 5 %; Neutrophils # (A) 7.3 k/uL (1.3-7.7); Neutrophils % (A) 83 %; RBC 2.59 m/uL (3.80-5.40); RDW 19.8 % (11.5-15.5); WBC 8.8 k/uL (3.8-10.6)
[2017-03-11 06:29] LABS: INR 1.4 (<1.2); Prothrombin Time 13.4 sec (9.0-12.0)
[2017-03-11 06:34] LABS: Albumin 2.3 g/dL (3.5-5.0); Calcium 8.9 mg/dL (8.4-10.2); Potassium 3.7 mmol/L (3.5-5.1); Total Bilirubin 0.7 mg/dL (0.2-1.3); Total Protein 4.3 g/dL (6.3-8.2)
[2017-03-11 06:41] LABS: Platelet Count 96 k/uL (150-450)
[2017-03-11] MEDS: PIPERACILLIN-TAZOBACTAM 3.375 GM in DEXTROSE/WATER 1 50ML.BAG IVPB SCH (08:25)
[2017-03-11] MEDS: POTASSIUM CHLORIDE ER 10 MEQ TAB.ER.PRT PO SCH (08:25)
[2017-03-11] MEDS: FERROUS SULFATE 325 MG TAB PO SCH (08:25)
[2017-03-11] MEDS: NYSTATIN 100,000 UNIT/ML SUSP 500,000 UNIT/5 ML CUP PO SCH ×2 (08:25→11:57)
[2017-03-11] MEDS: LEVOFLOXACIN 500 MG TAB PO SCH (08:25)
[2017-03-11] MEDS: ALLOPURINOL 100 MG TAB PO SCH (08:26)
[2017-03-11] MEDS: METOPROLOL TARTRATE 25 MG TAB PO SCH (08:26)
[2017-03-11] MEDS: NON-FORMULARY DRUG (Mirabegron [Myrbetriq] 25 MG) PO SCH (08:28)
[2017-03-11 09:15] VITALS: BP 128/58; PULSE 80; TEMP 96.9
[2017-03-11] MEDS: LOPERAMIDE 2 MG CAP PO PRN ×2 (10:14→11:23)
[2017-03-11] MEDS ORDERED: WARFARIN 5 MG TAB PO SCH (12:30)
--- NOTE | 2017-03-11 12:30 | P.DS ---
Providers Date of admission: 03/01/17 10:39 Expected date of discharge: 03/11/17 Attending physician: Erin Landry Consults: 03/01/17 10:36 Consult Physician Routine Consulting Provider: Luigi Roman Consult Reason/Comments: Breast cancer, chemotherapy Do you want consulting provider notified?: Yes 03/01/17 15:40 Consult Physician Routine Consulting Provider: Edouard Mayer Consult Reason/Comments: Pulmonary edema Do you want consulting provider notified?: Yes 03/02/17 13:23 Consult Physician Routine Consulting Provider: Latia Bunn Consult Reason/Comments: CHF, Afib Do you want consulting provider notified?: Yes Primary care physician: [facility] Course: Discharge diagnosis 1. Acute diastolic congestive heart failure exacerbation with pulmonary edema. Echo shows an EF of 50-55%, moderate to severe mitral stenosis and moderate pulmonary hypertension. Chest x-ray showing improvement in the right pleural effusion. restart lasix 40mg po bid tomorrow 03/12/17 she did have an increase in her creatine to 2.10 2. Acute hypoxic respiratory failure secondary to CHF exacerbation 3. Chronic persistent atrial fibrillation: Continue Coumadin. Monitor closely due to patient's thrombocytopenia. Appreciate oncology's input. They are recommending to continue the Coumadin as long as platelets are above 50,000. Will give Coumadin 5 mg tonight and monitor PT/INR daily 4. Pancytopenia most likely chemotherapy-induced. Currently on broad-spectrum antibiotics per pulmonary service 5. Obstructive uropathy status post Dill catheter insertion 6. Right breast cancer had been receiving chemotherapy. Patient expressed that she does not want any further chemotherapy treatment. Oncology following and appreciate their input 7. Right pleural effusion: evaluated by pulmonary service no need for thoracentesis xray had shown improvment 8. Acute on chronic kidney disease, stage III. Creatinine is 2.10 at discharge. 9. Diarrhea. Stool for C. diff negative. We'll add Imodium 10. Chronic anemia secondary to chemotherapy, patient's breast cancer, and iron deficiency. hemoglobin has dropped 6.5. Patient refusing blood transfusion. Patient was given 1 dose of IV iron. She was started on oral iron. Hemoglobin 7.7 at discharge 11. Leukocytosis: resolved. continue levaquin for 5 days. Urine culture and blood culture negative Hospital course: this is a 81-year-old female with complex past medical history detailed below significant for underlying breast cancer on chemotherapy. Patient presented to the emergency room with worsening shortness of breath and fatigue. Patient said that her last chemo was approximately 2 weeks ago. She said that the chemo is making her fatigued. For the past 2 or 3 days patient noted worsening shortness of breath and lower extremity edema. She denies any cough. No fevers or chills. No orthopnea. Patient said that she is known to have heart failure and usually follow-up with cardiology. She is also known to have underlying A. fib and is on anticoagulation with Coumadin. Patient was evaluated in the emergency room and was found to have evidence of fluid overload. BNP was slightly elevated. Patient was started on IV Lasix and admitted to the hospital for further evaluation. Patient treated for an acute CHF exacerbation. Patient was seen by both pulmonary service and cardiology. She was treated with IV Lasix. Symptoms have improved. Her right pleural effusion improved with Lasix. There was no need for thoracentesis per pulmonary service. Patient initially put on broad- spectrum antibiotics due to her pancytopenia. Urine culture and blood culture negative. However, we'll continue Levaquin for 5 more days. Patient has known chronic kidney disease. She has some mild acute kidney injury due to the diuretics. Creatinine 2.10 at discharge. Hold Lasix today. Restart Lasix tomorrow March 12. INR is also subtherapeutic. Will give Coumadin 5 mg now before discharge for an INR of 1.4. Then to continue her Coumadin 2.5 mg daily. Check CBC BMP and INR on Friday. Also seen by oncology. Patient will benefit from rehab before continuing further chemo treatment. She will follow up with oncology outpatient to make further decisions on her cancer treatment. I performed an examination of the patient and discussed their management with the physician Trade Mark Examiner. I have reviewed the Physician Trade Mark Examiner's notes and agree with the documented findings and plan of care Patient Condition at Discharge: Stable Plan - Discharge Summary Discharge Rx Participant: No New Discharge Prescriptions: New Ferrous Sulfate [Iron (65 MG Elemental)] 325 mg PO BID tab HYDROcodone/APAP 5-325MG [Paulding 5-325] 1 each PO Q6HR PRN #20 tab PRN Reason: Pain Levofloxacin [Levaquin] 250 mg PO DAILY #5 tablet Loperamide [Imodium] 2 mg PO QID PRN cap PRN Reason: Diarrhea Nystatin 100,000 Unit/ml Susp [Mycostatin Oral Susp] 500,000 unit PO QID 7 Days cup Continue Simvastatin [Zocor] 20 mg PO HS Metoprolol Tartrate [Lopressor] 25 mg PO BID #60 tab Potassium Chloride ER [K-Dur 10] 10 meq PO DAILY #30 tab.er.prt Mirabegron [Myrbetriq] 25 mg PO DAILY Meclizine [Antivert] 25 mg PO TID PRN PRN Reason: Nausea Allopurinol [Zyloprim] 100 mg PO DAILY ALPRAZolam [Xanax] 0.25 mg PO BID PRN #20 tab PRN Reason: Anxiety Furosemide [Lasix] 40 mg PO BID@0900,1600 #60 tab Warfarin [Coumadin] 2.5 mg PO DAILY #0 Discontinued amLODIPine [Norvasc] 2.5 mg PO QAM Digoxin [Lanoxin] 125 mcg PO QAM Discharge Medication List Simvastatin [Zocor] 20 mg PO HS 01/14/14 [History] Metoprolol Tartrate [Lopressor] 25 mg PO BID #60 tab 01/24/14 [Rx] Potassium Chloride ER [K-Dur 10] 10 meq PO DAILY #30 tab.er.prt 01/24/14 [Rx] Mirabegron [Myrbetriq] 25 mg PO DAILY 12/10/16 [History] Allopurinol [Zyloprim] 100 mg PO DAILY 03/01/17 [History] Meclizine [Antivert] 25 mg PO TID PRN 03/01/17 [History] ALPRAZolam [Xanax] 0.25 mg PO BID PRN #20 tab 03/11/17 [Rx] Ferrous Sulfate [Iron (65 MG Elemental)] 325 mg PO BID tab 03/11/17 [Rx] Furosemide [Lasix] 40 mg PO BID@0900,1600 #60 tab 03/11/17 [Rx] HYDROcodone/APAP 5-325MG [Paulding 5-325] 1 each PO Q6HR PRN #20 tab 03/11/17 [Rx] Levofloxacin [Levaquin] 250 mg PO DAILY #5 tablet 03/11/17 [Rx] Loperamide [Imodium] 2 mg PO QID PRN cap 03/11/17 [Rx] Nystatin 100,000 Unit/ml Susp [Mycostatin Oral Susp] 500,000 unit PO QID 7 Days cup 03/11/17 [Rx] Warfarin [Coumadin] 2.5 mg PO DAILY #0 03/11/17 [Rx] Follow up Appointment(s)/Referral(s): Donnie Zuniga MD [Primary Care Provider] - 1 Week Activity/Diet/Wound Care/Special Instructions: Diet: cardiac Activity: as tolerated Check CBC, BMP, INR on Friday
[2017-03-11 13:13] VITALS: RESP 14
--- NOTE | 2017-03-11 15:32 | P.PN ---
Subjective Progress Note Date: 03/11/17 Principal diagnosis: Acute hypoxic respiratory failure secondary to congestive heart failure, diastolic in nature, secondary to valvular heart disease This is an 81-year-old female with a history of acute diastolic CHF with pulmonary edema. The patient also has a history of valvular heart disease with severe mitral stenosis, pulmonary hypertension and acute hypoxemic respiratory failure. In addition, the patient has a history of chronic atrial fibrillation and valvular heart disease chronic renal fire skin cancer gout, chronic anemia, pancytopenia secondary to chemotherapy for her breast cancer. The patient's doing better. Less short of breath. Chest x-ray shows improvement in the patient's volume status. The patient sitting up in bed. Not wearing her oxygen. Does not appear to be short of breath or tachypnea or dyspneic. Denies any cough or phlegm production. No fever or chills. On 03/11/2017 patient seen in follow-up. Her oxygen is on standby, her O2 sat is 95% on room air. Vital signs are stable, patient remains afebrile, lung sounds generally diminished, with right greater than the left posterior base crackles. Today's lab work shows white count within normal limits of 8.8, hemoglobin is down to 7.7, INR is 1.4, carbon dioxide is 31, BUN is 50, and creatinine is 2.10. Patient complaining of having loose stools. Urine and blood culture remained negative. Patient's antibiotic will be discontinued, as they may be the culprit for her loose stools. C. diff was negative. Chest x- ray showing improvement in the right pleural effusion, patient was transitioned to oral Lasix. Chronic persistent atrial fibrillation, on Coumadin. Discharge planning is in progress for discharge to subacute rehab today. Objective - Vital Signs Vital signs: Vital Signs Temp 96.9 F L 03/11/17 08:00 Pulse 80 03/11/17 12:00 Resp 14 03/11/17 12:00 BP 128/58 03/11/17 08:00 Pulse Ox 95 03/11/17 08:24 Intake & Output 03/10/17 03/11/17 03/11/17 18:59 06:59 18:59 Intake Total 560 460 Output Total 500 Balance 560 -500 460 Weight 67.1 kg Intake: Oral 560 460 Output: Urine 500 Other: Voiding Method Indwelling Catheter Bedside Commode Bedside Commode # Voids 1 # Bowel Movements 1 2 - Exam No acute distress, oriented 3. HEENT examination is grossly unremarkable. Mucous membranes are moist. No oral lesions. Neck supple. Full range of motion. No adenopathy thyromegaly or neck vein distention. Cardiovascular examination reveals a irregular rhythm and rate. S1-S2 normal. Soft systolic murmurs heard. Lungs reveal bibasilar fine crackles. Breath sounds are equal bilaterally. No rhonchi. No wheezes. There is mild prolongation on forced maneuver.. Abdomen soft bowel sounds are heard. No masses or tenderness. Extremities are intact. No cyanosis clubbing or edema. Skin is without rash or lesion. Neurologic examination is brief but nonfocal. - Labs CBC & Chem 7: 03/11/17 06:06 03/11/17 06:06 Labs: Abnormal Lab Results - Last 24 Hours (Table) 03/11/17 03/11/17 03/11/17 Range/Units 06:06 06:06 06:06 RBC 2.59 L (3.80-5.40) m/uL Hgb 7.7 L (11.4-16.0) gm/dL Hct 24.9 L (34.0-46.0) % RDW 19.8 H (11.5-15.5) % Plt Count 96 L (150-450) k/uL Lymphocytes # 0.8 L (1.0-4.8) k/uL PT 13.4 H (9.0-12.0) sec INR 1.4 H (<1.2) Carbon Dioxide 31 H (22-30) mmol/L BUN 50 H (7-17) mg/dL Creatinine 2.10 H (0.52-1.04) mg/dL Total Protein 4.3 L (6.3-8.2) g/dL Albumin 2.3 L (3.5-5.0) g/dL Assessment and Plan Plan: Assessment: 1 acute diastolic CHF with pulmonary edema. The patient is responding nicely to diuretics. His chest x-ray shows improvement in the right pleural effusion. No plans for thoracentesis. Echocardiogram showed good LV function, but suspect there may be a component of valvular heart disease with severe mitral stenosis, pulmonary hypertension was noted, suspect some component of diastolic dysfunction. 2 acute hypoxic respiratory failure secondary to above, improving currently down to 5 L high flow nasal cannula. 3 chronic atrial fibrillation, anticoagulated with warfarin. 4 valvular heart disease with moderate to severe mitral stenosis 5 chronic renal failure, creatinine is stable 6 breast cancer currently undergoing systemic chemotherapy 7 skin cancer, history of 8 gout 9 chronic anemia, multifactorial, normocytic 10 pancytopenia secondary to chemotherapy, we will broaden the spectrum of antibiotics, white count improved to11.5 today, and hemoglobin is 7.7 Recommendation: We will stop the antibiotics, microbiology has been negative thus far. Patient has improved in terms of dyspnea, FiO2 is down to 2 L/m, and off at times. Discharge planning is in progress for discharge to subacute rehab. Patient is stable for discharge from pulmonary standpoint. Follow-up with Dr. Mayer in the office in one week I performed a history & physical examination of the patient and discussed their management with my nurse practitioner, Liyah Malin. I reviewed the nurse practitioner's note and agree with the documented findings and plan of care. Lung sounds are positive for some bibasilar crackles. The findings and the impression was discussed with the patient. I attest to the documentation by the nurse practitioner. Time with Patient: Less than 30
== END 2017-03-11 14:33 | DRG 291 ==
LOC: EC 06:33 → 6SEL 10:39
PROVIDERS: ADMIT Internal Medicine; ATTEND Internal Medicine
DX: I13.0 Hypertensive heart and chronic kidney disease with heart failure and stage 1 through stage 4 chronic kidney disease, or unspecified chronic kidney disease (principal); D61.810 Antineoplastic chemotherapy induced pancytopenia; J96.21 Acute and chronic respiratory failure with hypoxia; N17.9 Acute kidney failure, unspecified; E11.22 Type 2 diabetes mellitus with diabetic chronic kidney disease; I48.1 Persistent atrial fibrillation; I27.20 Pulmonary hypertension, unspecified; I05.0 Rheumatic mitral stenosis; N18.3 Chronic kidney disease, stage 3 (moderate); I50.33 Acute on chronic diastolic (congestive) heart failure; J98.11 Atelectasis; C50.911 Malignant neoplasm of unspecified site of right female breast; D50.9 Iron deficiency anemia, unspecified; D72.829 Elevated white blood cell count, unspecified; E78.5 Hyperlipidemia, unspecified; F41.9 Anxiety disorder, unspecified; I48.2 Chronic atrial fibrillation; M10.9 Gout, unspecified; N13.9 Obstructive and reflux uropathy, unspecified; T45.1X5A Adverse effect of antineoplastic and immunosuppressive drugs, initial encounter; T50.2X5A Adverse effect of carbonic-anhydrase inhibitors, benzothiadiazides and other diuretics, initial encounter; R32 Unspecified urinary incontinence; R19.7 Diarrhea, unspecified; L65.8 Other specified nonscarring hair loss; Z17.0 Estrogen receptor positive status [ER+]; Z79.01 Long term (current) use of anticoagulants; Z79.899 Other long term (current) drug therapy; Z96.651 Presence of right artificial knee joint; Z90.710 Acquired absence of both cervix and uterus; Z90.12 Acquired absence of left breast and nipple; Z85.828 Personal history of other malignant neoplasm of skin; Z86.14 Personal history of Methicillin resistant Staphylococcus aureus infection; Z80.8 Family history of malignant neoplasm of other organs or systems; Z82.49 Family history of ischemic heart disease and other diseases of the circulatory system; Y92.9 Unspecified place or not applicable
CPT/HCPCS: 36415; 71045; 71046; 76604; 80048; 80053; 81001; 82550; 82553; 82728; 83540; 83550; 83605; 83735; 83880; 84484; 85025; 85610; 85730; 87040; 87086; 87324; 93005; 93306; 94640; 94760; 96365; 96366; 96375; 99285

== ENCOUNTER 2017-06-07 12:58 | Inpatient (IN) | payer MEDICARE, BC ==
[2017-06-07] MEDS ORDERED: SODIUM CHLORIDE 0.9% 1,000 ML IV ONE (13:32)
[2017-06-07] MEDS ORDERED: MORPHINE SULFATE 4MG/4ML SYRG IVP ONE (13:33)
[2017-06-07] MEDS ORDERED: METOCLOPRAMIDE 5 MG/ML 2 ML VIAL IVP STA (13:34)
[2017-06-07 14:21] LABS: Anisocytosis Slight; Basophils % (A) 1 %; Eosinophils # (A) 0.1 k/uL (0-0.7); Eosinophils % (A) 1 %; HCT 36.1 % (34.0-46.0); HGB 11.6 gm/dL (11.4-16.0); Lymphocytes # (A) 0.6 k/uL (1.0-4.8); Lymphocytes % (A) 11 %; MCH 28.1 pg (25.0-35.0); MCHC 32.2 g/dL (31.0-37.0); Monocytes # (A) 0.4 k/uL (0-1.0); Monocytes % (A) 7 %; Neutrophils # (A) 4.5 k/uL (1.3-7.7); Neutrophils % (A) 78 %; RBC 4.15 m/uL (3.80-5.40); RDW 17.3 % (11.5-15.5); WBC 5.8 k/uL (3.8-10.6)
[2017-06-07 14:22] LABS: INR 1.5 (<1.2); Partial Thromboplastin Time 34.1 sec (22.0-30.0); Prothrombin Time 14.3 sec (9.0-12.0)
[2017-06-07 14:24] LABS: Albumin 3.5 g/dL (3.5-5.0); Calcium 10.7 mg/dL (8.4-10.2); Potassium 3.8 mmol/L (3.5-5.1); Total Bilirubin 0.9 mg/dL (0.2-1.3); Total Protein 6.2 g/dL (6.3-8.2)
[2017-06-07 14:32] LABS: Ovalocytes Present; Platelet Count 96 k/uL (150-450)
[2017-06-07] MEDS ORDERED: SODIUM CHLORIDE 0.9% 500 ML IV ONE (15:21)
[2017-06-07] MEDS ORDERED: MORPHINE SULFATE 4MG/4ML SYRG IVP STA (16:29)
--- NOTE | 2017-06-07 16:50 | ED ---
General Adult HPI - General Chief complaint: Extremity Problem,Nontraumatic Stated complaint: Hand pain Time Seen by Provider: 06/07/17 13:16 Source: patient, RN notes reviewed Mode of arrival: wheelchair Limitations: no limitations - History of Present Illness Initial comments: 81-year-old female presented for right arm pain. His been ongoing issue increased swelling and pain secondary to cancer. Patient states she's not receiving chemotherapy because she cannot tolerated. Decided had no treatment for her breast cancer has spread into her lymph nodes. She has extreme pain uncontrolled by her pain patch. She and THE OTHER DAY WHICH SHOWED POSSIBLE BLOOD CLOT. PATIENT WAS TAKEN XARELTO. PATIENT STATES SHE CANNOT TOLERATE THE PAIN SHE IS NOT USING HER DRINKING SHE STATES THAT SHE IS DEHYDRATED - Related Data Home Medications Medication Instructions Recorded Confirmed Mirabegron [Myrbetriq] 25 mg PO DAILY 12/10/16 03/21/17 Allopurinol [Zyloprim] 100 mg PO DAILY 03/01/17 03/21/17 Meclizine [Antivert] 25 mg PO TID PRN 03/01/17 03/21/17 Atorvastatin [Lipitor] 10 mg PO HS 03/21/17 03/21/17 Metolazone [Zaroxolyn] 2.5 mg PO BID 03/21/17 03/21/17 Previous Rx's Medication Instructions Recorded Metoprolol Tartrate [Lopressor] 25 mg PO BID #60 tab 01/24/14 Potassium Chloride ER [K-Dur 10] 10 meq PO DAILY #30 tab.er.prt 01/24/14 ALPRAZolam [Xanax] 0.25 mg PO BID PRN #20 tab 03/11/17 Ferrous Sulfate [Iron (65 MG 325 mg PO BID tab 03/11/17 Elemental)] Furosemide [Lasix] 40 mg PO BID@0900,1600 #60 tab 03/11/17 HYDROcodone/APAP 5-325MG [[place] 1 each PO Q6HR PRN #20 tab 03/11/17 5-325] Loperamide [Imodium] 2 mg PO QID PRN cap 03/11/17 Warfarin [Coumadin] 2.5 mg PO DAILY #0 03/11/17 Allergies Allergy/AdvReac Type Severity Reaction Status Date / Time No Known Allergies Allergy Verified 06/07/17 13:06 Review of Systems ROS Statement: Those systems with pertinent positive or pertinent negative responses have been documented in the HPI. ROS Other: All systems not noted in ROS Statement are negative. Past Medical History Past Medical History: Atrial Fibrillation, Blood Disorder, Cancer, Heart Failure , Hyperlipidemia, Hypertension, Pneumonia, Skin Disorder Additional Past Medical History / Comment(s): breast cancer diagnosed July 2015 with masectomy, skin cancer, vertigo, mitral valve stenosis, chronic atrial fibrillation, gout ,incontinent of urine, right lymph positve for breast ca in November 2016, chronic renal failure. Thrombocytopenia. Anemia History of Any Multi-Drug Resistant Organisms: MRSA Date of last positivie culture/infection: 05/12/2014 MDRO Source:: R first finger and sputum Past Surgical History: Breast Surgery, Hysterectomy, Joint Replacement Additional Past Surgical History / Comment(s): CORE BX LT BREAST, RT KNEE REPLACEMENT, RT INDEX FINGER DEBRIDEMENT,SKIN GRAFTRT FIRST FINGER, MULT SKIN CA REMOVED,CATHERINE CAT. lt breast mastectomy due to ca with lymph node removal july 2015 Past Anesthesia/Blood Transfusion Reactions: Motion Sickness Additional Past Anesthesia/Blood Transfusion Reaction / Comment(s): TAKES LONG TIME TO WAKE UP FROM ANESTHESIA,NO PROBLEMS WITH PRIOR BLOOD TRANSFUSIONS Past Psychological History: Anxiety Smoking Status: Never smoker - Past Family History Brother(s) Family Medical History: Cancer Additional Family Medical History / Comment(s): BRAIN CANCER,HEART PROBLEMS Father Family Medical History: Renal Disease Mother Family Medical History: Myocardial Infarction ([place]) General Exam Limitations: no limitations General appearance: alert, in no apparent distress Head exam: Present: atraumatic, normocephalic, normal inspection Neck exam: Present: normal inspection. Absent: tenderness, meningismus, lymphadenopathy Respiratory exam: Present: normal lung sounds bilaterally. Absent: respiratory distress, wheezes, rales, rhonchi, stridor Cardiovascular Exam: Present: tachycardia, irregular rhythm, normal heart sounds. Absent: systolic murmur, diastolic murmur, rubs, gallop, clicks GI/Abdominal exam: Present: soft, normal bowel sounds. Absent: distended, tenderness, guarding, rebound, rigid Extremities exam: Present: other (There is extensive swelling noted to the right arm is normal change in color slightly erythematous. Radial pulses equal bilaterally patient has equal underwear cutter strength there is extensive lymph nodes, tenderness palpation to the right axilla area is firm with palpation that extends up into the clavicular region) Neurological exam: Present: alert, oriented X3, CN II-XII intact, reflexes normal. Absent: motor sensory deficit Skin exam: Present: warm, dry, intact, normal color. Absent: rash Course Vital Signs 06/07/17 06/07/17 13:01 16:36 Temperature 97.4 F L Pulse Rate 120 H 108 H Respiratory 18 20 Rate Blood Pressure 123/79 114/67 O2 Sat by Pulse 95 98 Oximetry Medical Decision Making - Lab Data Result diagrams: 06/07/17 14:04 06/07/17 14:04 Lab Results 06/07/17 06/07/17 06/07/17 Range/Units 14:04 14:04 14:04 WBC 5.8 (3.8-10.6) k/uL RBC 4.15 (3.80-5.40) m/uL Hgb 11.6 (11.4-16.0) gm/dL Hct 36.1 (34.0-46.0) % MCV 87.0 D (80.0-100.0) fL MCH 28.1 (25.0-35.0) pg MCHC 32.2 (31.0-37.0) g/dL RDW 17.3 H (11.5-15.5) % Plt Count 96 L (150-450) k/uL Neutrophils % 78 % Lymphocytes % 11 % Monocytes % 7 % Eosinophils % 1 % Basophils % 1 % Neutrophils # 4.5 (1.3-7.7) k/uL Lymphocytes # 0.6 L (1.0-4.8) k/uL Monocytes # 0.4 (0-1.0) k/uL Eosinophils # 0.1 (0-0.7) k/uL Basophils # 0.0 (0-0.2) k/uL Manual Slide Review Performed Anisocytosis Slight Ovalocytes Present PT 14.3 H (9.0-12.0) sec INR 1.5 H (<1.2) APTT 34.1 H (22.0-30.0) sec Sodium 137 (137-145) mmol/L Potassium 3.8 (3.5-5.1) mmol/L Chloride 96 L (98-107) mmol/L Carbon Dioxide 30 (22-30) mmol/L Anion Gap 11 mmol/L BUN 48 H (7-17) mg/dL Creatinine 2.54 H (0.52-1.04) mg/dL Est GFR (CKD-EPI)AfAm 20 (>60 ml/min/1.73 sqM) Est GFR (CKD-EPI)NonAf 17 (>60 ml/min/1.73 sqM) Glucose 105 H (74-99) mg/dL Calcium 10.7 H (8.4-10.2) mg/dL Total Bilirubin 0.9 (0.2-1.3) mg/dL AST 128 H (14-36) U/L ALT 55 H (9-52) U/L Alkaline Phosphatase 205 H (38-126) U/L Troponin I (0.000-0.034) ng/mL Total Protein 6.2 L (6.3-8.2) g/dL Albumin 3.5 (3.5-5.0) g/dL / Range/Units 14:04 WBC (3.8-10.6) k/uL RBC (3.80-5.40) m/uL Hgb (11.4-16.0) gm/dL Hct (34.0-46.0) % MCV (80.0-100.0) fL MCH (25.0-35.0) pg MCHC (31.0-37.0) g/dL RDW (11.5-15.5) % Plt Count (150-450) k/uL Neutrophils % % Lymphocytes % % Monocytes % % Eosinophils % % Basophils % % Neutrophils # (1.3-7.7) k/uL Lymphocytes # (1.0-4.8) k/uL Monocytes # (0-1.0) k/uL Eosinophils # (0-0.7) k/uL Basophils # (0-0.2) k/uL Manual Slide Review Anisocytosis Ovalocytes PT (9.0-12.0) sec INR (<1.2) APTT (22.0-30.0) sec Sodium (137-145) mmol/L Potassium (3.5-5.1) mmol/L Chloride (98-107) mmol/L Carbon Dioxide (22-30) mmol/L Anion Gap mmol/L BUN (7-17) mg/dL Creatinine (0.52-1.04) mg/dL Est GFR (CKD-EPI)AfAm (>60 ml/min/1.73 sqM) Est GFR (CKD-EPI)NonAf (>60 ml/min/1.73 sqM) Glucose (74-99) mg/dL Calcium (8.4-10.2) mg/dL Total Bilirubin (0.2-1.3) mg/dL AST (14-36) U/L ALT (9-52) U/L Alkaline Phosphatase (38-126) U/L Troponin I 0.026 (0.000-0.034) ng/mL Total Protein (6.3-8.2) g/dL Albumin (3.5-5.0) g/dL Disposition Clinical Impression: Dehydration, Acute kidney injury, Transaminitis, Breast cancer metastasized to axillary lymph node, Right axillary swelling, Intractable pain Disposition: ADMITTED IP TO THIS HOSP Condition: Fair Referrals: Lourdes Panda MD [Primary Care Provider] - 1-2 days
--- NOTE | 2017-06-07 17:13 | US ---
EXAMINATION TYPE: US venous doppler duplex UE RT DATE OF EXAM: 06/07/2017 COMPARISON: NONE CLINICAL HISTORY: Pain. Per patient, no hx of blood clots. On blood thinners. Pain and unable to fu lly move arm. No redness. Swelling. Cancer in lymph nodes SIDE PERFORMED: Right Limited exam due to edema and limited range of movement Right Arm: Negative for DVT. Superficial edema noted. Enlarged lymph nodes noted. Visualized portion s of the internal jugular vein, subclavian vein, brachial veins, radial and ulnar veins are compressi ble and show no abnormal luminal echoes, basilic vein is also compressible and patent. Grayscale, color doppler, spectral doppler imaging performed of the deep veins of the right upper ext remity. IMPRESSION: No evident deep venous thrombosis in the visualized deep veins of the right upper extremity. Suspect adenopathy is present
[2017-06-07] MEDS ORDERED: ONDANSETRON 4 MG/2 ML VIAL IVP PRN (17:40)
[2017-06-07] MEDS: SODIUM CHLORIDE 0.9% 1,000 ML IV SCH (18:11)
[2017-06-07] MEDS ORDERED: ALPRAZolam 0.25 MG TAB PO PRN (20:11)
[2017-06-07] MEDS: METOPROLOL TARTRATE 25 MG TAB PO SCH (20:23)
[2017-06-07] MEDS: MORPHINE SULFATE 4MG/4ML SYRG IV PRN (20:25)
[2017-06-07] MEDS ORDERED: RIVAROXABAN 15 MG TAB PO SCH (21:00)
[2017-06-08] MEDS: MORPHINE SULFATE 4MG/4ML SYRG IV PRN ×2 (01:30→05:50)
[2017-06-08 02:45] VITALS: BMI 29.2
[2017-06-08] MEDS: HYDROcodone/APAP 5-325MG 1 EACH TAB PO PRN ×4 (04:24→18:21)
[2017-06-08] MEDS: RIVAROXABAN 15 MG TAB PO SCH ×2 (08:31→16:38)
[2017-06-08] MEDS: METOPROLOL TARTRATE 25 MG TAB PO SCH (08:31)
[2017-06-08] MEDS: Mirabegron [Myrbetriq] PO SCH (13:02)
[2017-06-08] MEDS ORDERED: MORPHINE ORAL SOLN 10 MG/5 ML CUP PO PRN (13:31)
[2017-06-08] MEDS: SODIUM CHLORIDE 0.9% 1,000 ML IV SCH ×2 (16:37→22:05)
[2017-06-08] MEDS ORDERED: ALLOPURINOL 100 MG TAB PO SCH (17:30)
[2017-06-08] MEDS ORDERED: ATORVASTATIN 10 MG TAB PO SCH (17:30)
[2017-06-08] MEDS ORDERED: RX INFO: IV CONTRAST WAS GIVEN 1 EACH MISC MISCELLANE PRN (17:32)
[2017-06-08] MEDS ORDERED: MORPHINE SULFATE 4MG/4ML SYRG IVP PRN (17:36)
[2017-06-08] MEDS: GABAPENTIN 100 MG CAP PO SCH ×2 (18:14→22:07)
--- NOTE | 2017-06-08 18:35 | P.HPIM ---
History of Present Illness H&P Date: 06/08/17 Chief Complaint: Uncontrolled right upper extremity pain and weakness This is a pleasant 81-year-old female recently transferred to my practice, presenting history off bilateral breast carcinoma with recently diagnosed breast carcinoma right side fall of 2017, noted to have increasing lymphedema and pain in the right side of the chest, and right deltoid area. She was recently worked up outpatient last week when I saw her for follow-up in the office and was found to have an axillary vein DVT last 06/04/2017. Performed on [facility], she also has a second rib cage fracture after a fall at home, patient's Xarelto dose was titrated to 15 mg bid x 21 days patient has been off Coumadin secondary to nutritional issues and compliance issues. She came in with increasing pain in the right upper extremity, and this time she has difficulty in raising the arm as well as extending her wrist, also concerned regarding the axillary lymph node mass /lymph node is enlarging, consults were made with Dr. Jacobsen for anticoagulation and compromised axillary area vs paraneoplastic syndrome consult with neurology Dr. Barfield axillary n/ radial nerve palsy. In the emergency room, she has significant lymphedema, and swelling into the axillary area and pectoralis area, she has repeated Doppler that did not show any acute DVT however there is a large axillary lymph node, , on examination on heart rate is regular, and has definitely loss of motion on the right upper extremity, and has pain issues constant intractable patient is on Butrans transplant 10 mics she has side effects of tramadol which is nausea and vomiting Review of Systems Constitutional: Reports as per HPI, Reports anorexia, Reports chronic pain Ears, nose, mouth and throat: Reports as per HPI Cardiovascular: Reports as per HPI Respiratory: Reports as per HPI Gastrointestinal: Reports as per HPI, Denies abdominal pain, Denies belching, Denies bloating, Denies BRBPR, Denies change in bowel habits, Denies coffee ground emesis, Denies constipation, Denies diarrhea, Denies dyspepsia, Denies early satiety, Denies excessive gas, Denies heartburn, Denies hematemesis, Denies hematochezia, Denies indigestion, Denies jaundice, Denies lactose intolerance, Denies loss of appetite, Denies melena, Denies nausea, Denies vomiting Genitourinary: Reports as per HPI, Denies abnormal vaginal bleeding, Denies decreased libido, Denies difficulty conceiving, Denies difficulty voiding, Denies dysmenorrhea, Denies dyspareunia, Denies dysuria, Denies flank pain, Denies genital sores, Denies hematuria, Denies hot flashes, Denies incomplete emptying, Denies kidney stones, Denies menorrhagia, Denies mixed incontinence, Denies nocturia, Denies pelvic pain, Denies post void dribbling, Denies , Denies prolapse symptoms, Denies stress incontinence, Denies urge incontinence , Denies urgency, Denies urinary frequency, Denies vaginal discharge, Denies vaginal dryness, Denies vaginal itching, Denies vaginal odor Menstruation: Reports as per HPI, Reports postmenopausal Musculoskeletal: Reports as per HPI, Reports arm numbness/tingling, Reports limitation of motion, Reports muscle weakness ( right upper extremity motion 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) Integumentary: Reports as per HPI, Denies acne, Denies boils, Denies brittle nails, Denies change in hair/nails, Denies color changes, Denies darkening of skin, Denies depigmentation, Denies dryness, Denies foot/leg ulcers, Denies growths, Denies hirsutism, Denies lesions, Denies onychomycosis, Denies pruritus , Denies rash, Denies sores, Denies striae, Denies unusual bruising, Denies wounds Neurological: Reports as per HPI, Denies aphasia, Denies ataxia, Denies balance difficulties, Denies burning pain, Denies change in mentation, Denies change in smell/taste, Denies change in speech, Denies confusion, Denies convulsions, Denies double vision, Denies gait dysfunction, Denies head injury, Denies headaches, Denies hearing difficulties, Denies lack of coordination, Denies loss of vision, Denies memory loss, Denies migraines, Denies motor disturbance, Denies numbness, Denies paralysis, Denies paresthesias, Denies seizures, Denies sensory deficit, Denies spasticity, Denies syncope, Denies tic, Denies tingling , Denies transient paralysis, Denies tremors, Denies vertigo, Denies weakness, Denies visual changes Psychiatric: Reports as per HPI, Reports anxiety, Reports insomnia, Reports sleep disturbances, Denies anhedonia, Denies anxiety attacks, Denies change in appetite, Denies change in libido, Denies change in sleep habits, Denies confusion, Denies depression, Denies difficulty concentrating, Denies disorientation, Denies hallucinations, Denies hopelessness, Denies hypersomnia, Denies irritability, Denies memory loss, Denies mood swings, Denies paranoia, Denies sadness/tearfulness, Denies suicidal ideation Endocrine: Reports as per HPI, Denies cold intolerance, Denies deepening of the voice, Denies excessive sweating, Denies excessive thirst, Denies fatigue, Denies flushing, Denies heat intolerance, Denies high blood sugars, Denies increase in ring/shoe/hat size, Denies low blood sugars, Denies nocturia, Denies palpitations, Denies polydipsia, Denies polyphagia, Denies polyuria, Denies proptosis, Denies recent glucocorticoid use, Denies thyroid mass, Denies weight change Hematologic/Lymphatic: Reports as per HPI Allergic/Immunologic: Reports as per HPI Past Medical History Past Medical History: Atrial Fibrillation, Blood Disorder, Cancer, Heart Failure , Hyperlipidemia, Hypertension, Pneumonia, Skin Disorder Additional Past Medical History / Comment(s): breast cancer diagnosed July 2015 with masectomy, skin cancer, vertigo, mitral valve stenosis, chronic atrial fibrillation, gout ,incontinent of urine, right lymph positve for breast ca in November 2016, chronic renal failure. Thrombocytopenia. Anemia History of Any Multi-Drug Resistant Organisms: MRSA Date of last positivie culture/infection: 05/12/2014 MDRO Source:: R first finger and sputum Past Surgical History: Breast Surgery, Hysterectomy, Joint Replacement Additional Past Surgical History / Comment(s): CORE BX LT BREAST, RT KNEE REPLACEMENT, RT INDEX FINGER DEBRIDEMENT,SKIN GRAFTRT FIRST FINGER, MULT SKIN CA REMOVED,CATHERINE CAT. lt breast mastectomy due to ca with lymph node removal july 2015 Past Anesthesia/Blood Transfusion Reactions: Motion Sickness Additional Past Anesthesia/Blood Transfusion Reaction / Comment(s): TAKES LONG TIME TO WAKE UP FROM ANESTHESIA,NO PROBLEMS WITH PRIOR BLOOD TRANSFUSIONS Past Psychological History: Anxiety Smoking Status: Never smoker - Past Family History Brother(s) Family Medical History: Cancer (Brain), Coronary Artery Disease (CAD) Additional Family Medical History / Comment(s): BRAIN CANCER,HEART PROBLEMS Father Family Medical History: Coronary Artery Disease (CAD), Myocardial Infarction ([place] ), Renal Disease Mother Family Medical History: Hypertension, Myocardial Infarction ([place]) Additional Family Medical History / Comment(s): One sister healthy, no daughters 2 sons healthy Medications and Allergies Home Medications Medication Instructions Recorded Confirmed Type Metoprolol Tartrate [Lopressor] 25 mg PO BID #60 tab 01/24/14 06/07/17 Rx Mirabegron [Myrbetriq] 25 mg PO DAILY@1200 12/10/16 06/07/17 History Allopurinol [Zyloprim] 100 mg PO W/SUPPER 03/01/17 06/07/17 History Atorvastatin [Lipitor] 10 mg PO W/SUPPER 03/21/17 06/07/17 History ALPRAZolam [Xanax] 0.125 mg PO HS PRN 06/07/17 06/07/17 History Acetaminophen Tab [Tylenol Tab] 500 - 1,000 mg PO Q6HR PRN 06/07/17 06/07/17 History Furosemide [Lasix] 40 mg PO BID@0900,1200 06/07/17 06/07/17 History Potassium Chloride ER [K-Dur 10] 10 meq PO W/SUPPER 06/07/17 06/07/17 History Potassium Chloride [K-Tab ER] 10 meq PO Q48H 06/07/17 06/07/17 History Rivaroxaban [Xarelto] 15 mg PO BID 06/07/17 06/07/17 History Allergies Allergy/AdvReac Type Severity Reaction Status Date / Time No Known Allergies Allergy Verified 06/07/17 18:07 Physical Exam Vitals: Vital Signs Temp Pulse Resp BP Pulse Ox 06/07/17 18:17 97.6 F 118 H 20 136/84 96 06/07/17 17:30 108 H 16 130/78 98 06/07/17 16:36 108 H 20 114/67 98 06/07/17 13:01 97.4 F L 120 H 18 123/79 95 Intake and Output 06/07/17 06/07/17 06/07/17 06:59 14:59 22:59 Other: Weight 68.039 kg - Constitutional General appearance: cooperative, no acute distress - EENT Eyes: anicteric sclerae, EOMI, PERRLA, dentition normal ENT: NA/AT, normal oropharynx - Neck Neck: normal ROM - Respiratory Respiratory: bilateral: CTA, negative: diminished, dullness - Cardiovascular Rhythm: regular Heart sounds: normal: S1 Abnormal Heart Sounds: no systolic murmur, no diastolic murmur, no rub, no S3 Gallop, no S4 Gallop, no click, no other - Gastrointestinal General gastrointestinal: normal bowel sounds, soft - Integumentary Integumentary: decreased turgor, normal - Neurologic Neurologic: CNII-XII intact - Musculoskeletal Musculoskeletal: generalized weakness, right sided weakness (Right upper extremity paralysis, unable to raise arm, unable to paralegal assistant, able to raise wrist) - Psychiatric Psychiatric: A&O x's 3 Results CBC & Chem 7: 06/07/17 14:04 06/07/17 14:04 Labs: Abnormal Lab Results - Last 24 Hours (Table) 06/07/17 06/07/17 06/07/17 Range/Units 14:04 14: 14:04 RDW 17.3 H (11.5-15.5) % Plt Count 96 L (150-450) k/uL Lymphocytes # 0.6 L (1.0-4.8) k/uL PT 14.3 H (9.0-12.0) sec INR 1.5 H (<1.2) APTT 34.1 H (22.0-30.0) sec Chloride 96 L (98-107) mmol/L BUN 48 H (7-17) mg/dL Creatinine 2.54 H (0.52-1.04) mg/dL Glucose 105 H (74-99) mg/dL Calcium 10.7 H (8.4-10.2) mg/dL AST 128 H (14-36) U/L ALT 55 H (9-52) U/L Alkaline Phosphatase 205 H (38-126) U/L Total Protein 6.2 L (6.3-8.2) g/dL Laboratory Results WBC 5.8 k/uL (3.8-10.6) 06/07/17 14:04 RBC 4.15 m/uL (3.80-5.40) 06/07/17 14:04 Hgb 11.6 gm/dL (11.4-16.0) 06/07/17 14:04 Hct 36.1 % (34.0-46.0) 06/07/17 14:04 MCV 87.0 fL (80.0-100.0) D 06/07/17 14:04 MCH 28.1 pg (25.0-35.0) 06/07/17 14:04 MCHC 32.2 g/dL (31.0-37.0) 06/07/17 14:04 RDW 17.3 % (11.5-15.5) H 06/07/17 14:04 Plt Count 96 k/uL (150-450) L 06/07/17 14:04 Neutrophils % 78 % 06/07/17 14:04 Lymphocytes % 11 % 06/07/17 14:04 Monocytes % 7 % 06/07/17 14:04 Eosinophils % 1 % 06/07/17 14:04 Basophils % 1 % 06/07/17 14:04 Neutrophils # 4.5 k/uL (1.3-7.7) 06/07/17 14:04 Lymphocytes # 0.6 k/uL (1.0-4.8) L 06/07/17 14:04 Monocytes # 0.4 k/uL (0-1.0) 06/07/17 14:04 Eosinophils # 0.1 k/uL (0-0.7) 06/07/17 14:04 Basophils # 0.0 k/uL (0-0.2) 06/07/17 14:04 Manual Slide Review Performed 06/07/17 14:04 Anisocytosis Slight 06/07/17 14:04 Ovalocytes Present 06/07/17 14:04 PT 14.3 sec (9.0-12.0) H 06/07/17 14:04 INR 1.5 (<1.2) H 06/07/17 14:04 APTT 34.1 sec (22.0-30.0) H 06/07/17 14:04 Sodium 137 mmol/L (137-145) 06/07/17 14:04 Potassium 3.8 mmol/L (3.5-5.1) 06/07/17 14:04 Chloride 96 mmol/L (98-107) L 06/07/17 14:04 Carbon Dioxide 30 mmol/L (22-30) 06/07/17 14:04 Anion Gap 11 mmol/L 06/07/17 14:04 BUN 48 mg/dL (7-17) H 06/07/17 14:04 Creatinine 2.54 mg/dL (0.52-1.04) H 06/07/17 14:04 Est GFR (CKD-EPI)AfAm 20 (>60 ml/min/1.73 sqM) 06/07/17 14:04 Est GFR (CKD-EPI)NonAf 17 (>60 ml/min/1.73 sqM) 06/07/17 14:04 Glucose 105 mg/dL (74-99) H 06/07/17 14:04 Calcium 10.7 mg/dL (8.4-10.2) H 06/07/17 14:04 Total Bilirubin 0.9 mg/dL (0.2-1.3) 06/07/17 14:04 AST 128 U/L (14-36) H 06/07/17 14:04 ALT 55 U/L (9-52) H 06/07/17 14:04 Alkaline Phosphatase 205 U/L (38-126) H 06/07/17 14:04 Troponin I 0.026 ng/mL (0.000-0.034) 06/07/17 14:04 Total Protein 6.2 g/dL (6.3-8.2) L 06/07/17 14:04 Albumin 3.5 g/dL (3.5-5.0) 06/07/17 14:04 Thrombosis Risk Factor Assmnt - DVT/VTE Prophylaxis DVT/VTE Prophylaxis: Pharmacologic Prophylaxis ordered Assessment and Plan Plan: 1. Intractable right upper extremity pain secondary to metastatic lesions arising from breast cancer, pain related to malignancy,, patient is on the 10th patch which was recently started however this is not adequate, morphine for rescue pain, this can be transitioned to morphine extended release, the patient was reluctant on this medication morphine ER when the discussed initiating long- acting opiates, the gabapentin 100 mg 3 times a day to start, and this will be titrated, morphine IV 2 mg every 3 hours when necessary. Chest CT to evaluate axillary region and metastatic lesion some chest, no contrast secondary to elevated creatinine 2. 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 Axillary vein DVT diagnosed 06/04/2017 started on xarelto 15 mg twice a day original film diagnosed [facility] on June 04, current Doppler failed to reveal any acute axillary DVT most likely secondary to resolution of clot, . 4 Acute on chronic kidney failure stage III with creatinine baseline lowest 1.2- 1.3 in 02/[address] secondary atn fluctuating over the years and 2 creatinine of 2.5 secondary to anorexia with diminished intake most likely secondary arising to ATN. now with the new upper extremity DVT anticoagulation, 5 Atrial fibrillation with rapid ventricular rate, patient is chronically on anticoagulation, metoprolol to 25 mg twice a day echocardiogram was performed 2017 moderate to severe mitral stenosis, peak gradient of 24, moderate MR, severe LAD palpitations, LVH, EF 50-55%, moderate pulmonary hypertension, right ventricular systolic pressure 62 6. Hyperlipidemia on Lipitor 10 mg dinner 7. Hypertension on Lasix 40 mg daily Lopressor 25 mg twice a day 8 Bilateral breast cancer left side diagnosed July 2015, right side diagnosed November 2016 no chemotherapy requested by patient for future treatments, the stasis to the lymph node identified, bilateral mastectomy 9 Severe mitral stenosis 10 rib #2 fracture right side secondary to fall, 11 Anxiety, increase Xanax to 0.25 mg twice a day when necessary 12 Right-sided lymphedema uncontrolled, on Lasix 40 mg twice a day, gabapentin 100 mg 3 times a day to start, has underlying axillary vein thrombosis as well and a large lymph node metastatic from the breast. 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 Impaired balance and gait, compromise now with loss of right upper extremity mobility, physical therapy and occupational therapy to see the patient Discharge planning home with therapies again subacute rehab GI prophylaxis Pepcid DVT prophylaxis with factor X A inhibitor anticoagulation CODE STATUS
--- NOTE | 2017-06-08 18:45 | P.PN ---
Subjective Progress Note Date: 06/08/17 Chief Complaint: Uncontrolled right upper extremity pain and weakness This is a pleasant 81-year-old female recently transferred to my practice, presenting history off bilateral breast carcinoma with recently diagnosed breast carcinoma right side fall of 2017, noted to have increasing lymphedema and pain in the right side of the chest, and right deltoid area. She was recently worked up outpatient last week when I saw her for follow-up in the office and was found to have an axillary vein DVT last 06/04/2017. Performed on [facility], she also has a second rib cage fracture after a fall at home, patient's Xarelto dose was titrated to 15 mg bid x 21 days patient has been off Coumadin secondary to nutritional issues and compliance issues. She came in with increasing pain in the right upper extremity, and this time she has difficulty in raising the arm as well as extending her wrist, also concerned regarding the axillary lymph node mass /lymph node is enlarging, consults were made with Dr. Jacobsen for anticoagulation and compromised axillary area vs paraneoplastic syndrome consult with neurology Dr. Barfield axillary n/ radial nerve palsy. 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 she has side effects of tramadol which is nausea and vomiting 06/08 Patient has still uncontrolled pain, worsening off weakness on the right arm now patient does not have any motion right upper extremity patient's tachycardic today, additional metoprolol dose has been given, consults were made with cardiology, creatinine is currently elevated at 2.5, we'll going to switch Xarelto 2 and xarelto to eliquis creat clearanc 18 Objective - Vital Signs Vital signs: Vital Signs Temp 97.9 F 06/08/17 15:20 Pulse 88 06/08/17 15:27 Resp 20 06/08/17 15:27 BP 132/89 06/08/17 15:20 Pulse Ox 90 L 06/08/17 15:20 Intake & Output 06/07/17 06/08/17 06/08/17 18:59 06:59 18:59 Intake Total 1170 80 Balance 1170 80 Weight 68.039 kg 68.039 kg Intake: Intake, IV Titration 750 Amount Sodium Chloride 0.9% 1, 750 000 ml @ 75 mls/hr IV . [id number] CELIO Rx#:[id number] Oral 420 80 Other: # Voids 1 2 - Constitutional General appearance: Present: cooperative, no acute distress - EENT Eyes: Present: anicteric sclerae, normal appearance ENT: Present: NA/AT, normal oropharynx - Respiratory Respiratory: bilateral: CTA, negative: diminished, dullness - Cardiovascular Rhythm: irregularly irregular Heart sounds: normal: S1, S2 Abnormal Heart Sounds: Present: systolic murmur - Gastrointestinal General gastrointestinal: Present: normal bowel sounds, soft - Neurologic Neurologic: Present: CNII-XII intact - Psychiatric Psychiatric: Present: A&O x's 3, appropriate affect, intact judgment & insight - Labs CBC & Chem 7: 06/07/17 14:04 06/07/17 14:04 Labs: Laboratory Results WBC 5.8 k/uL (3.8-10.6) 06/07/17 14:04 RBC 4.15 m/uL (3.80-5.40) 06/07/17 14:04 Hgb 11.6 gm/dL (11.4-16.0) 06/07/17 14:04 Hct 36.1 % (34.0-46.0) 06/07/17 14:04 MCV 87.0 fL (80.0-100.0) D 06/07/17 14:04 MCH 28.1 pg (25.0-35.0) 06/07/17 14:04 MCHC 32.2 g/dL (31.0-37.0) 06/07/17 14:04 RDW 17.3 % (11.5-15.5) H 06/07/17 14:04 Plt Count 96 k/uL (150-450) L 06/07/17 14:04 Neutrophils % 78 % 06/07/17 14:04 Lymphocytes % 11 % 06/07/17 14:04 Monocytes % 7 % 06/07/17 14:04 Eosinophils % 1 % 06/07/17 14:04 Basophils % 1 % 06/07/17 14:04 Neutrophils # 4.5 k/uL (1.3-7.7) 06/07/17 14:04 Lymphocytes # 0.6 k/uL (1.0-4.8) L 06/07/17 14:04 Monocytes # 0.4 k/uL (0-1.0) 06/07/17 14:04 Eosinophils # 0.1 k/uL (0-0.7) 06/07/17 14:04 Basophils # 0.0 k/uL (0-0.2) 06/07/17 14:04 Manual Slide Review Performed 06/07/17 14:04 Anisocytosis Slight 06/07/17 14:04 Ovalocytes Present 06/07/17 14:04 PT 14.3 sec (9.0-12.0) H 06/07/17 14:04 INR 1.5 (<1.2) H 06/07/17 14:04 APTT 34.1 sec (22.0-30.0) H 06/07/17 14:04 Sodium 137 mmol/L (137-145) 06/07/17 14:04 Potassium 3.8 mmol/L (3.5-5.1) 06/07/17 14:04 Chloride 96 mmol/L (98-107) L 06/07/17 14:04 Carbon Dioxide 30 mmol/L (22-30) 06/07/17 14:04 Anion Gap 11 mmol/L 06/07/17 14:04 BUN 48 mg/dL (7-17) H 06/07/17 14:04 Creatinine 2.54 mg/dL (0.52-1.04) H 06/07/17 14:04 Est GFR (CKD-EPI)AfAm 20 (>60 ml/min/1.73 sqM) 06/07/17 14:04 Est GFR (CKD-EPI)NonAf 17 (>60 ml/min/1.73 sqM) 06/07/17 14:04 Glucose 105 mg/dL (74-99) H 06/07/17 14:04 Calcium 10.7 mg/dL (8.4-10.2) H 06/07/17 14:04 Total Bilirubin 0.9 mg/dL (0.2-1.3) 06/07/17 14:04 AST 128 U/L (14-36) H 06/07/17 14:04 ALT 55 U/L (9-52) H 06/07/17 14:04 Alkaline Phosphatase 205 U/L (38-126) H 06/07/17 14:04 Troponin I 0.026 ng/mL (0.000-0.034) 06/07/17 14:04 Total Protein 6.2 g/dL (6.3-8.2) L 06/07/17 14:04 Albumin 3.5 g/dL (3.5-5.0) 06/07/17 14:04 Assessment and Plan Plan: 1. Intractable right upper extremity pain secondary to metastatic lesions arising from breast cancer, pain related to malignancy,, patient is on the 10th patch which was recently started however this is not adequate, morphine for rescue pain, this can be transitioned to morphine extended release, the patient was reluctant on this medication morphine ER when the discussed initiating long- acting opiates, the gabapentin 100 mg 3 times a day to start, and this will be titrated, morphine IV 2 mg every 3 hours when necessary. Chest CT to evaluate axillary region and metastatic lesion some chest, no contrast secondary to elevated creatinine 2. 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 Axillary vein DVT diagnosed 06/04/2017 started on xarelto 50 mg twice a day however based on creatinine clearance of 18, and eliquis would be initiated 410 mg twice a day 7 days and discontinue xarelto, anticoagulation discussed with Dr. Jacobsen 4 Acute on chronic kidney failure stage III with creatinine baseline lowest 1.2- 1.3 in 02/[address] place secondary to creatinine clearance of 18 on admission, fluctuating over the years and 2 creatinine of 2.5 secondary to anorexia with diminished intake most likely secondary arising to ATN. now with the new upper extremity DVT anticoagulation, will be switched to eliquis 5 Atrial fibrillation with rapid ventricular rate, patient is chronically on anticoagulation, increase metoprolol to 50 mg twice a day echocardiogram was performed 2017 moderate to severe mitral stenosis, peak gradient of 24, moderate MR, severe LAD palpitations, LVH, EF 50-55%, moderate pulmonary hypertension, right ventricular systolic pressure 62 6. Hyperlipidemia on Lipitor 10 mg dinner 7. Hypertension on Lasix 40 mg daily Lopressor 25 mg twice a day which is increased to 50 mg twice a day secondary to RVR 8 Bilateral breast cancer left side diagnosed July 2015, right side diagnosed November 2016 no chemotherapy requested by patient for future treatments, the stasis to the lymph node identified, bilateral mastectomy 9 Severe mitral stenosis 10 rib #2 fracture right side secondary to fall, 11 Anxiety, increase Xanax to 0.25 mg twice a day when necessary 12 Right-sided lymphedema uncontrolled, on Lasix 40 mg twice a day, gabapentin 100 mg 3 times a day to start, has underlying axillary vein thrombosis as well and a large lymph node metastatic from the breast. 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 Impaired balance and gait, compromise now with loss of right upper extremity mobility, physical therapy and occupational therapy to see the patient Discharge planning home with therapies again subacute rehab GI prophylaxis Pepcid DVT prophylaxis with factor X A inhibitor anticoagulation CODE STATUS
[2017-06-08] MEDS: METOPROLOL TARTRATE 50 MG TAB PO SCH (19:48)
[2017-06-08] MEDS: FAMOTIDINE 20 MG TAB PO SCH (19:49)
[2017-06-08] MEDS: APIXABAN 5 MG TAB PO SCH (19:49)
[2017-06-08] MEDS ORDERED: MIRTAZAPINE 15 MG TAB PO SCH (20:00)
--- NOTE | 2017-06-08 20:43 | CT ---
EXAMINATION TYPE: CT chest wo con DATE OF EXAM: 06/08/2017 COMPARISON: Radiograph 03/10/2017 HISTORY: 81-year-old female with pain, shortness of breath and arm swelling TECHNIQUE: Contiguous axial scanning of the chest without IV contrast. Coronal and sagittal reconstru ctions performed. CT DLP: 347.3 mGycm Automated exposure control for dose reduction was used. FINDINGS: Left anterior chest wall injection port with catheter tip at the mid SVC level. Heart is enlarged without pericardial effusion. Artery vessel calcifications are present as well as m itral annular calcifications. Diffuse anasarca is unchanged. Mild metastatic calcifications in the aortic arch with conventional arch vessel branching anatomy. Enlarged caliber to the main right and left pulmonary arteries 3.0 and 2.6 cm, respectively, suggesti ng underlying pulmonary arterial hypertension. Nonenlarged and enlarged mediastinal lymph nodes are present measuring up to 2.3 cm in the lower para tracheal region and 1.9 cm in the AP window. There is bulky lymphadenopathy along the right side of the chest extending from the supraclavicular r egion and contiguously extending into the right axilla spanning up to 18.9 cm craniocaudal and measur ing up to 8.6 cm wide in the supraclavicular region, 8.6 cm wide in the subpectoral region, and up to 9.5 cm wide in the right axillary region. Evaluation the lungs show septal lines and central interstitial thickening with moderate right and sm all left pleural effusions. Prominent adjacent bibasilar atelectasis. There is diffuse studding of the liver. Multiple hepatic lesions are indeterminate. Largest of these measure up to 5.2 cm right upper pole suggestive of a cyst. Bones: Endplate spondylosis throughout the mid to lower thoracic spine. No osseous destructive proces s seen. IMPRESSION: 1. ANASARCA, CARDIOMEGALY, PULMONARY HYPERTENSION, INTERSTITIAL THICKENING, AND MODERATE RIGHT WITH S MALL LEFT PLEURAL EFFUSIONS. CORRELATE FOR CHF AND PULMONARY VASCULAR CONGESTION. 2. PROMINENT BIBASILAR ATELECTASIS ADJACENT TO THE EFFUSIONS. 3. VERY BULKY LYMPHADENOPATHY ALONG THE RIGHT SIDE OF THE CHEST EXTENDING FROM THE SUPRACLAVICULAR RE GION DOWN INTO THE AXILLA SPANNING UP TO 18.9 CM. 4. ADDITIONAL MEDIASTINAL LYMPHADENOPATHY AND DIFFUSE METASTATIC STUDDING OF THE LIVER. 5. NUMEROUS BILATERAL KIDNEY LESIONS ARE INDETERMINATE. MOST IF NOT ALL LIKELY REPRESENT CYSTS. A CON TRAST ENHANCED EXAM FOR RENAL MASS VERSUS MRI WOULD BE HELPFUL IN FURTHER EVALUATING. ULTRASOUND COUL D INITIALLY BE ATTEMPTED.
[2017-06-08] MEDS ORDERED: ALPRAZolam 0.25 MG TAB PO PRN (21:00)
[2017-06-09 08:39] VITALS: RESP 16
[2017-06-09 09:08] LABS: Calcium 10.1 mg/dL (8.4-10.2); Potassium 5.2 mmol/L (3.5-5.1)
[2017-06-09] MEDS ORDERED: MORPHINE ORAL SOLN 10 MG/5 ML CUP PO PRN (09:18)
[2017-06-09] MEDS: SODIUM CHLORIDE 0.9% 1,000 ML IV SCH ×2 (11:07→11:16)
[2017-06-09] MEDS ORDERED: MIDODRINE 5 MG TAB PO SCH (12:30)
[2017-06-09] MEDS ORDERED: DIGOXIN 125 MCG TAB PO SCH (12:45)
[2017-06-09] MEDS: GABAPENTIN 100 MG CAP PO SCH (13:01)
--- NOTE | 2017-06-09 13:02 | P.PN ---
Subjective This is a pleasant 81-year-old female recently transferred to my practice, presenting history off bilateral breast carcinoma with recently diagnosed breast carcinoma right side fall of 2017, noted to have increasing lymphedema and pain in the right side of the chest, and right deltoid area. She was recently worked up outpatient last week when I saw her for follow-up in the office and was found to have an axillary vein DVT last 06/04/2017. Performed on [facility], she also has a second rib cage fracture after a fall at home, patient's Xarelto dose was titrated to 15 mg bid x 21 days patient has been off Coumadin secondary to nutritional issues and compliance issues. She came in with increasing pain in the right upper extremity, and this time she has difficulty in raising the arm as well as extending her wrist, also concerned regarding the axillary lymph node mass /lymph node is enlarging, consults were made with Dr. Jacobsen for anticoagulation and compromised axillary area vs paraneoplastic syndrome consult with neurology Dr. Barfield axillary n/ radial nerve palsy. 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 Right arm still noted to be extremely weak and flaccid, although edema has improved slightly. BUN/creatinine have improved slightly, potassium 5.2, will continue with IV hydration and repeat in the morning. CT of the chest shows anacarca, cardiomegaly, pulmonary hypertension, moderate right with small left pleural effusions. She is also to have bulky lymphadenopathy along the right side of the chest extending from this supraclavicular region down to the axilla spanning up to 18.9 cm, additional mediastinal lymphadenopathy and diffuse metastasis extending of the liver, numerous bilateral kidney lesions. Concerning for recent metastasis to the liver and aortic arch. Oncology on consult. Midodrine 10mg TID, and Lasix 40mg x 2 doses added. Family was not at bedside today, will discuss possibility of palliative care with the son when he is available. Objective - Vital Signs Vital signs: Vital Signs Temp 98.5 F 06/09/17 07:00 Pulse 114 H 06/09/17 07:00 Resp 16 06/09/17 07:00 BP 103/62 06/09/17 07:00 Pulse Ox 95 06/09/17 07:00 Intake & Output 06/08/17 06/09/17 06/09/17 18:59 06:59 18:59 Intake Total 80 1420 Balance 80 1420 Weight 68.039 kg Intake: Intake, IV Titration 1000 Amount Sodium Chloride 0.9% 1, 900 000 ml @ 75 mls/hr IV . [id number] [facility] Rx#:[id number] methylPREDNISolone SOD 100 SUCC 250 mg In Sodium Chloride 0.9% 100 ml @ 100 mls/hr IVPB Q8H [facility]IO Rx#:[id number] Oral 80 420 Other: # Voids 2 2 - Exam Constitutional General appearance: Present: cooperative, no acute distress - EENT Eyes: Present: anicteric sclerae, normal appearance ENT: Present: NA/AT, normal oropharynx - Respiratory Respiratory: bilateral: CTA, negative: diminished, dullness - Cardiovascular Rhythm: irregularly irregular Heart sounds: normal: S1, S2 Abnormal Heart Sounds: Present: systolic murmur - Gastrointestinal General gastrointestinal: Present: normal bowel sounds, soft - Neurologic Neurologic: Present: CNII-XII intact - Psychiatric Psychiatric: Present: A&O x's 3, appropriate affect, intact judgment & insight - Labs CBC & Chem 7: 06/07/17 14:04 06/09/17 07:00 Labs: Abnormal Lab Results - Last 24 Hours (Table) 06/09/17 Range/Units 07:00 Potassium 5.2 H (3.5-5.1) mmol/L Carbon Dioxide 20 L (22-30) mmol/L BUN 49 H (7-17) mg/dL Creatinine 2.15 H (0.52-1.04) mg/dL Glucose 130 H (74-99) mg/dL Assessment and Plan Plan: 1. Intractable right upper extremity pain secondary to metastatic lesions arising from breast cancer, pain related to malignancy, patient is on the 10th patch which was recently started however this is not adequate, morphine for rescue pain, this can be transitioned to morphine extended release, the patient was reluctant on this medication morphine ER when the discussed initiating long- acting opiates, the gabapentin 100 mg 3 times a day to start, and this will be titrated, morphine IV 2 mg every 3 hours when necessary. Chest CT shows recent metastasis to the liver and aortic arch with heavy burden to the axilla and supraclavicular region, oncology on consult. 2. 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 Axillary vein DVT diagnosed 06/04/2017 started on xarelto 50 mg twice a day however based on creatinine clearance of 18, and eliquis would be initiated 10 mg twice a day 7 days and discontinue xarelto, anticoagulation discussed with Dr. Jacobsen 4 Acute on chronic kidney failure stage III with creatinine baseline lowest 1.2- 1.3 in 02/[address] place secondary to creatinine clearance of 18 on admission, fluctuating over the years and 2 creatinine of 2.5 secondary to anorexia with diminished intake most likely secondary arising to ATN. now with the new upper extremity DVT anticoagulation, will be switched to eliquis 5 Atrial fibrillation with rapid ventricular rate, patient is chronically on anticoagulation, increase metoprolol to 50 mg twice a day echocardiogram was performed 2017 moderate to severe mitral stenosis, peak gradient of 24, moderate MR, severe LAD palpitations, LVH, EF 50-55%, moderate pulmonary hypertension, right ventricular systolic pressure 62 6. Hyperlipidemia on Lipitor 10 mg dinner 7. Hypertension on Lopressor 25 mg twice a day which is increased to 50 mg twice a day secondary to RVR 8 Bilateral breast cancer left side diagnosed July 2015, right side diagnosed November 2016 no chemotherapy requested by patient for future treatments, the stasis to the lymph node identified, bilateral mastectomy 9 Severe mitral stenosis. cardiology on consult 10 rib #2 fracture right side secondary to fall 11 Anxiety, increase Xanax to 0.25 mg twice a day when necessary 12 Right-sided lymphedema uncontrolled, on Lasix 40 mg daily x 2 doses, gabapentin 100 mg 3 times a day to start, has underlying axillary vein thrombosis as well and a large lymph node metastatic from the breast. 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 Impaired balance and gait, compromise now with loss of right upper extremity mobility, physical therapy and occupational therapy to see the patient Discharge planning home with therapies again subacute rehab GI prophylaxis Pepcid DVT prophylaxis with factor X A inhibitor anticoagulation CODE STATUS full code The above impression and plan of care have been discussed and directed by signing physician. Jess Justin nurse practitioner acting as scribe for signing physician.
--- NOTE | 2017-06-09 13:20 | P.CRDCN ---
History of Present Illness Consult date: 06/09/17 History of present illness: Mrs. Hernandez is a pleasant 81-year-old female past medical history significant for rheumatic mitral stenosis, pulmonary hypertension, hypertension , chronic permanent atrial fibrillation on shelter anticoagulation with controlled ventricular response and breast cancer. She has recently been diagnosed with a right axillary vein DVT and was placed on Xarelto. She was previously on coumadin 2.5 mg daily but that has been stopped in the outpatient setting secondary to non-compliance and falls. We have been asked to see her in consultation for evaluation of a-fib with uncontrolled rate. At the time of my exam she is somewhat confused and not answering questions appropriately. Nursing states this has started last night since starting remeron. Information obtained from the chart. She was admitted to the hospital in February 2017 with an acute exacerbation of diastolic heart failure. At that time her digoxin and amlodipine were stopped at that time. EKG reveals atrial fibrillation with rate in the 100-[address] reveals anasarca, cardiomegaly, pulmonary hypertension, interstitial thickening and moderate right pleural effusion with small left pleural effusion with atelectasis bibasilar. Lymphedema noted along the right side of the chest extending down into the axilla with mediastinal lymphadenopathy and diffuse metastatic disease of the liver with kidney lesions as well. Laboratory data reviewed, hemoglobin 11.6, platelets 96, INR 1.5, potassium 5.2 , creatinine 2.15, sodium 140, AST 128, ALT 55, alk phos 205. Current cardiac medications include metoprolol 25 mg twice a day, potassium supplementation, atorvastatin 10 mg daily, Lasix 40 mg twice a day and she is currently taking Xarelto 50 mg twice a day for DVT. Most recent echocardiogram performed February 2017 reveals preserved left ventricular systolic function with ejection fraction 50-55%, severely dilated left atrium, mild aortic valve sclerosis, mild aortic regurgitation, mild to moderate mitral regurgitation with a peak/mean gradient 24.87/13.31 mmHg, mild tricuspid regurgitation and moderate pulmonary hypertension with an RVSP of 62.83 mmHg. Review of Systems ROS unobtainable: due to mental status Past Medical History Past Medical History: Atrial Fibrillation, Blood Disorder, Cancer, Heart Failure , Hyperlipidemia, Hypertension, Pneumonia, Skin Disorder Additional Past Medical History / Comment(s): breast cancer diagnosed July 2015 with masectomy, skin cancer, vertigo, mitral valve stenosis, chronic atrial fibrillation, gout ,incontinent of urine, right lymph positve for breast ca in November 2016, chronic renal failure. Thrombocytopenia. Anemia History of Any Multi-Drug Resistant Organisms: MRSA Date of last positivie culture/infection: 05/02/14 MDRO Source:: Right first finger Past Surgical History: Breast Surgery, Hysterectomy, Joint Replacement Additional Past Surgical History / Comment(s): CORE BX LT BREAST, RT KNEE REPLACEMENT, RT INDEX FINGER DEBRIDEMENT,SKIN GRAFTRT FIRST FINGER, MULT SKIN CA REMOVED,CATHERINE CAT. lt breast mastectomy due to ca with lymph node removal july 2015 Past Anesthesia/Blood Transfusion Reactions: Motion Sickness Additional Past Anesthesia/Blood Transfusion Reaction / Comment(s): TAKES LONG TIME TO WAKE UP FROM ANESTHESIA,NO PROBLEMS WITH PRIOR BLOOD TRANSFUSIONS Past Psychological History: Anxiety Smoking Status: Never smoker - Past Family History Brother(s) Family Medical History: Cancer (Brain), Coronary Artery Disease (CAD) Additional Family Medical History / Comment(s): BRAIN CANCER,HEART PROBLEMS Father Family Medical History: Coronary Artery Disease (CAD), Myocardial Infarction ([place] ), Renal Disease Mother Family Medical History: Hypertension, Myocardial Infarction ([place]) Additional Family Medical History / Comment(s): One sister healthy, no daughters 2 sons healthy Medications and Allergies Home Medications Medication Instructions Recorded Confirmed Type Metoprolol Tartrate [Lopressor] 25 mg PO BID #60 tab 01/24/14 06/07/17 Rx Mirabegron [Myrbetriq] 25 mg PO DAILY@1200 12/10/16 06/07/17 History Allopurinol [Zyloprim] 100 mg PO W/SUPPER 03/01/17 06/07/17 History Atorvastatin [Lipitor] 10 mg PO W/SUPPER 03/21/17 06/07/17 History ALPRAZolam [Xanax] 0.125 mg PO HS PRN 06/07/17 06/07/17 History Acetaminophen Tab [Tylenol Tab] 500 - 1,000 mg PO Q6HR PRN 06/07/17 06/07/17 History Furosemide [Lasix] 40 mg PO BID@0900,1200 06/07/17 06/07/17 History Potassium Chloride ER [K-Dur 10] 10 meq PO W/SUPPER 06/07/17 06/07/17 History Potassium Chloride [K-Tab ER] 10 meq PO Q48H 06/07/17 06/07/17 History Rivaroxaban [Xarelto] 15 mg PO BID 06/07/17 06/07/17 History Allergies Allergy/AdvReac Type Severity Reaction Status Date / Time No Known Allergies Allergy Verified 06/07/17 18:07 Physical Exam Vitals: Vital Signs Temp Pulse Resp BP Pulse Ox 06/09/17 07:00 98.5 F 114 H 16 103/62 95 06/08/17 22:30 97.2 F L 109 H 17 124/87 92 L 06/08/17 22:15 17 06/08/17 15:27 88 20 06/08/17 15:20 97.9 F 110 H 16 132/89 90 L Intake and Output 06/08/17 06/09/17 06/09/17 22:59 06:59 14:59 Intake Total 600 820 Balance 600 820 Intake: Intake, IV Titration 300 700 Amount Sodium Chloride 0.9% 1, 300 600 000 ml @ 75 mls/hr IV . [id number] [facility] Rx#:[id number] methylPREDNISolone SOD 100 SUCC 250 mg In Sodium Chloride 0.9% 100 ml @ 100 mls/hr IVPB Q8H [facility] Rx#:[id number] Oral 300 120 Other: # Voids 1 2 Weight 68.039 kg Blood pressure 103/62 heart rate 114 afebrile and maintain oxygen saturation on nasal cannula 2 liters. GENERAL: This is a 81-year-old female in no apparent distress at the time of my examination. HEENT: Head is atraumatic, normocephalic. Pupils are equal, round. Sclerae anicteric. Conjunctivae are clear. Mucous membranes of the mouth are moist. Neck is supple. There is no jugular venous distention. No carotid bruit is heard. LUNGS: Bibasilar rales, no wheezes or rhonchi. No chest wall tenderness is noted on palpation or with deep breathing. Diminished bilateraly with poor inspiratory effort. HEART: Irregular rate and rhythm with systolic murmur at the left sternal border , no rubs or gallops. S1 and S2 heard. ABDOMEN: Soft, nontender. Bowel sounds are heard. No organomegaly noted. EXTREMITIES: Right upper extremity edema, non-pitting with palpable radial pulse. Unable to raise right arm. No lower extremity edema appreciated. VASCULAR: Radial and dorsalis pedis pulses palpated, no evidence of clubbing. NEUROLOGIC: Patient is awake, alert and disoriented. Results 06/07/17 14:04 06/09/17 07:00 Comprehensive Metabolic Panel 06/09/17 Range/Units 07:00 Sodium 140 (137-145) mmol/L Potassium 5.2 H (3.5-5.1) mmol/L Chloride 105 (98-107) mmol/L Carbon Dioxide 20 L (22-30) mmol/L BUN 49 H (7-17) mg/dL Creatinine 2.15 H (0.52-1.04) mg/dL Glucose 130 H (74-99) mg/dL Calcium 10.1 (8.4-10.2) mg/dL Current Medications Generic Name Dose Route Start Last Admin Trade Name Freq PRN Reason Stop Dose Admin Hydrocodone Bitart/Acetaminophen 1 each 06/07/17 17:40 06/08/17 18:21 [place] 5-325 PO 1 each Q4HR PRN Administration Moderate Pain Allopurinol 100 mg 06/08/17 17:30 06/08/17 16:38 Zyloprim PO 100 mg W/SUPPER [facility] Administration Alprazolam 0.25 mg 06/08/17 21:00 Xanax PO BID PRN Anxiety Apixaban 10 mg 06/08/17 21:00 06/08/17 19:49 Eliquis PO 10 mg BID [facility] Administration Atorvastatin Calcium 10 mg 06/08/17 17:30 06/08/17 16:38 Lipitor PO 10 mg W/SUPPER [facility] Administration Famotidine 20 mg 06/10/17 09:00 Pepcid PO DAILY [facility] Furosemide 40 mg 06/09/17 14:00 Lasix IV 06/10/17 09:01 DAILY [facility] Gabapentin 100 mg 06/08/17 17:45 06/08/17 22:07 Neurontin PO 100 mg TID [facility] Administration Sodium Chloride 1,000 mls @ 50 mls/hr 06/07/17 17:45 06/09/17 11:16 Saline 0.9% IV Not Given .Q20H [facility] Methylprednisolone Sodium 100 mls @ 100 mls/hr 06/08/17 17:30 06/09/17 11:02 Succinate 250 mg/ Sodium IVPB 100 mls/hr Chloride Q8H [facility] Administration Metoprolol Tartrate 50 mg 06/08/17 21:00 06/08/17 19:48 Lopressor PO 50 mg BID [facility] Administration Midodrine 10 mg 06/09/17 12:30 Proamatine PO AC-TID [facility] Miscellaneous Information 1 each 06/08/17 17:32 Rx Info: Iv Contrast Was Given MISCELLANE 06/10/17 17:33 DAILY PRN Per Protocol Morphine Sulfate 6 mg 06/09/17 09:18 Morphine Oral [place] 2mg/Ml PO Q4HR PRN Pain Control Mirabegron [ 25 mg 06/08/17 12:00 06/08/17 13:02 Myrbetriq] PO Not Given DAILY@1200 [facility] Ondansetron HCl 4 mg 06/07/17 17:40 Zofran IVP Q8HR PRN Nausea And Vomiting Intake and Output 06/08/17 06/09/17 06/09/17 22:59 06:59 14:59 Intake Total 600 820 Balance 600 820 Intake: Intake, IV Titration 300 700 Amount Sodium Chloride 0.9% 1, 300 600 000 ml @ 75 mls/hr IV . [id number] [facility] Rx#:[id number] methylPREDNISolone SOD 100 SUCC 250 mg In Sodium Chloride 0.9% 100 ml @ 100 mls/hr IVPB Q8H [facility] Rx#:[id number] Oral 300 120 Other: # Voids 1 2 Weight 68.039 kg 06/07/17 14:04 06/09/17 07:00 Assessment and Plan Assessment: ASSESSMENT 1. Chronic permanent atrial fibrillation with uncontrolled ventricular response , coumadin recently stopped secondary to falls 2. Moderate rheumatic mitral stenosis 3. Dyslipidemia on atorvastatin 4. Pulmonary hypertension, RVSP 62.83 mmHg 5. Hypertension. Currently systolic blood pressure appropriate on no medications other than lopressor for heart rate control. 6. History of breast cancer with possible metastasis 7. Lymphedema 8. History of recent fall 9. Elevated liver enzymes 10. Hyperkalemia 11. 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 Thrombocytopenia 13. History of diastolic heart failure, acute on chronic PLAN Resume digoxin 125 mcg daily. Continue with increased dose of lopressor if her blood pressure can tolerate, if not decrease back to 25 mg BID with addition of digoxin. Check proBNP. Continue to hold potassium supplementation. Hold atorvastatin with elevated liver function until etiology confirmed. Further recommendations to follow. Thank you kindly for this consultation. The above impression and plan of care have been discussed and directed by the signing physician. Katia Mcdermott, nurse practitioner, acting as scribe for signing physician.
[2017-06-09] MEDS ORDERED: FUROSEMIDE 10 MG/ML 4 ML VIAL IV SCH (14:00)
[2017-06-09] MEDS: HYDROcodone/APAP 5-325MG 1 EACH TAB PO PRN (14:47)
[2017-06-09] MEDS ORDERED: MORPHINE ORAL SOL CONC 20 MG/ML BOTTLE PO PRN (15:04)
[2017-06-09] MEDS: APIXABAN 5 MG TAB PO SCH (16:04)
[2017-06-09] MEDS: METOPROLOL TARTRATE 50 MG TAB PO SCH (16:04)
[2017-06-09] MEDS: FAMOTIDINE 20 MG TAB PO SCH (16:13)
[2017-06-09] MEDS: Mirabegron [Myrbetriq] PO SCH (16:13)
[2017-06-09 16:51] VITALS: BP 110/68; PULSE 127; TEMP 97.8
--- NOTE | 2017-06-09 18:55 | P.CONS ---
History of Present Illness - Reason for Consult Consult date: 06/09/17 Progressive metastatic breast cancer. Intractable pain. DVT - History of Present Illness Mrs. Hernandez is an 81 yr old female patient of Dr. Roman who presented in June 2015 with abnormal mammogram, changes at 3 O'clock of left breast, needle core biopsy 07/12/15 revealed intraductal pailloma with atypical ductal hyperplasia, wire localization and excisional biopsy on 07/26/15 revealing Grade II invasive ductal carcinoma, she then had L mastectomy on 08/18/15 revealing multifocal DCIS with small areas of invasion, 2/5 SLN had isolated tumor cells, all margins negative, ER/FL were 90%/80% and Ffa5paa negative, she was started on arimidex, which she quit 3 mo later due to arthralgias. She did not follow up until 12/05/16 with c/o enlarging right axillary mass X 3 months, rapidly increasing in size, axillary biopsy positive for metastatic high-grade invasive ductal carcinoma, triple negative, U/S of breast showed 5 X 7 mm lesion , staging PET right axillary mass uptake, no other mets. Started TC with neulasta in early Dec. the patient's tolerance of chemotherapy was progressively poor, and she was admitted and 03/13 with chemotherapy related side effects. She subsequently decided against further chemotherapy. She was admitted with intractable pain, involving the right neck and right shoulder region. Especially over the last 1-2 weeks, she has developed progressive swelling of the right arm. We'll the last couple of days she has been unable to move the right arm. She was therefore admitted, with Dopplers revealing axillary vein thrombosis. Consult was placed for further evaluation in conditions. The patient has previously received palliative radiation to the right axillary area Review of Systems Constitutional: Reports chronic pain, Reports fatigue, Reports poor appetite, Reports weakness, Reports weight loss Eyes: denies blurred vision, denies pain Ears: deny: decreased hearing, ear discharge, earache, tinnitus Ears, nose, mouth and throat: Denies headache, Denies sore throat Breasts: right: as per HPI Cardiovascular: Reports decreased exercise tolerance Respiratory: Reports dyspnea Gastrointestinal: Reports constipation Genitourinary: Denies dysuria, Denies hematuria Menstruation: Reports postmenopausal Musculoskeletal: Reports as per HPI (Progressive right upper extremity swelling and weakness), Reports neck pain, Reports neck stiffness Musculoskeletal: right: shoulder pain, shoulder stiffness Integumentary: Reports as per HPI (Addition related changes right chest wall, as well as thickening and induration of skin of right upper extremity) Neurological: Reports weakness Psychiatric: Denies anxiety, Denies depression Endocrine: Reports fatigue, Reports weight change Hematologic/Lymphatic: Reports as per HPI, Reports lymphedema Past Medical History Past Medical History: Atrial Fibrillation, Blood Disorder, Cancer, Heart Failure , Hyperlipidemia, Hypertension, Pneumonia, Skin Disorder Additional Past Medical History / Comment(s): breast cancer diagnosed July 2015 with masectomy, skin cancer, vertigo, mitral valve stenosis, chronic atrial fibrillation, gout ,incontinent of urine, right lymph positve for breast ca in November 2016, chronic renal failure. Thrombocytopenia. Anemia History of Any Multi-Drug Resistant Organisms: MRSA Year Discovered:: 05/02/14 MDRO Source:: Right first finger Past Surgical History: Breast Surgery, Hysterectomy, Joint Replacement Additional Past Surgical History / Comment(s): CORE BX LT BREAST, RT KNEE REPLACEMENT, RT INDEX FINGER DEBRIDEMENT,SKIN GRAFTRT FIRST FINGER, MULT SKIN CA REMOVED,CATHERINE CAT. lt breast mastectomy due to ca with lymph node removal july 2015 Past Anesthesia/Blood Transfusion Reactions: Motion Sickness Additional Past Anesthesia/Blood Transfusion Reaction / Comm: TAKES LONG TIME TO WAKE UP FROM ANESTHESIA,NO PROBLEMS WITH PRIOR BLOOD TRANSFUSIONS Past Psychological History: Anxiety Smoking Status: Never smoker - Past Family History Brother(s) Family Medical History: Cancer (Brain), Coronary Artery Disease (CAD) Additional Family Medical History / Comment(s): BRAIN CANCER,HEART PROBLEMS Father Family Medical History: Coronary Artery Disease (CAD), Myocardial Infarction ([place] ), Renal Disease Mother Family Medical History: Hypertension, Myocardial Infarction ([place]) Additional Family Medical History / Comment(s): One sister healthy, no daughters 2 sons healthy Medications and Allergies Home Medications Medication Instructions Recorded Confirmed Type Metoprolol Tartrate [Lopressor] 25 mg PO BID #60 tab 01/24/14 06/07/17 Rx Mirabegron [Myrbetriq] 25 mg PO DAILY@1200 12/10/16 06/07/17 History Allopurinol [Zyloprim] 100 mg PO W/SUPPER 03/01/17 06/07/17 History Atorvastatin [Lipitor] 10 mg PO W/SUPPER 03/21/17 06/07/17 History ALPRAZolam [Xanax] 0.125 mg PO HS PRN 06/07/17 06/07/17 History Acetaminophen Tab [Tylenol Tab] 500 - 1,000 mg PO Q6HR PRN 06/07/17 06/07/17 History Furosemide [Lasix] 40 mg PO BID@0900,1200 06/07/17 06/07/17 History Potassium Chloride ER [K-Dur 10] 10 meq PO W/SUPPER 06/07/17 06/07/17 History Potassium Chloride [K-Tab ER] 10 meq PO Q48H 06/07/17 06/07/17 History Rivaroxaban [Xarelto] 15 mg PO BID 06/07/17 06/07/17 History Allergies Allergy/AdvReac Type Severity Reaction Status Date / Time No Known Allergies Allergy Verified 06/07/17 18:07 Physical Exam Vitals: Vital Signs Temp Pulse Resp BP Pulse Ox 06/09/17 16:51 97.8 F 127 H 16 110/68 92 L 06/09/17 07:00 98.5 F 114 H 16 103/62 95 06/08/17 22:30 97.2 F L 109 H 17 124/87 92 L 06/08/17 22:15 17 Intake and Output 06/09/17 06/09/17 06/09/17 06:59 14:59 22:59 Intake Total 820 Balance 820 Intake: Intake, IV Titration 700 Amount Sodium Chloride 0.9% 1, 600 000 ml @ 50 mls/hr IV . Q20H [facility] Rx#:[id number] methylPREDNISolone SOD 100 SUCC 250 mg In Sodium Chloride 0.9% 100 ml @ 100 mls/hr IVPB Q8H [facility] Rx#:[id number] Oral 120 Other: # Voids 2 3 - Constitutional General appearance: no acute distress - EENT Eyes: EOMI, PERRLA ENT: hearing grossly normal, normal oropharynx - Neck Neck: lymphadenopathy (Hard fixed mass with indistinct borders right supra clavicle area, as well as right axillary area) Thyroid: bilateral: normal size - Respiratory Respiratory: bilateral: CTA - Cardiovascular Rhythm: regular Heart sounds: normal: S1, S2 - Gastrointestinal General gastrointestinal: normal bowel sounds, soft - Integumentary Somewhat thickened in skin, in the right chest wall area. Indurated skin of the right upper extremity. No obvious cellulitis - Neurologic Neurologic: CNII-XII intact - Musculoskeletal Marked lymphedema involving the entire right upper extremity and right hand Musculoskeletal: right sided weakness (Unable to move her right upper extremity) - Psychiatric Psychiatric: A&O x's 3, appropriate affect, intact judgment & insight Results CBC & Chem 7: 06/07/17 14:04 06/09/17 07:00 Labs: Abnormal Lab Results - Last 24 Hours (Table) 06/09/17 Range/Units 07:00 Potassium 5.2 H (3.5-5.1) mmol/L Carbon Dioxide 20 L (22-30) mmol/L BUN 49 H (7-17) mg/dL Creatinine 2.15 H (0.52-1.04) mg/dL Glucose 130 H (74-99) mg/dL CT scan - chest: report reviewed Venous US: report reviewed Assessment and Plan (1) Intractable pain Narrative/Plan: On this is due to progression of her breast cancer, with probably additional contribution from the right axillary vein thrombosis. Pain control is improved on her current regimen in the hospital. I did discuss with the patient regarding palliative radiation if possible. The patient has received relation to the chest wall before, but could be a candidate for additional treatment if progression has occurred in previously untreated servin. The patient was quite categorical that she did not want radiation at this time, and would rather go with medical treatment Current Visit: Yes Status: Acute Code(s): R52 - PAIN, UNSPECIFIED SNOMED Code(s): 16105612 (2) Axillary vein thrombosis Narrative/Plan: The patient was previously on Coumadin and was then placed on Xarelto. The case was discussed in detail with the admitting service. She has had a change in her renal function. It was therefore assisted that she be changed to Eliquis. For treatment of DVT/PE, no dose modification is required based on age or renal function. Medication change was subsequently made. Current Visit: Yes Status: Acute Code(s): I82.A19 - ACUTE EMBOLISM AND THROMBOSIS OF UNSPECIFIED AXILLARY VEIN SNOMED Code(s): 343391707 (3) Breast cancer metastasized to axillary lymph node Narrative/Plan: The patient has decided against further chemotherapy. As noted she also refused evaluation for palliative radiation. She is having increasing symptoms from her malignancy and performance status is declining. Therefore she would be an appropriate tended for comfort care/hospice, and stated that she is considering that. Current Visit: Yes Status: Acute Code(s): C50.919 - MALIGNANT NEOPLASM OF UNSP SITE OF UNSPECIFIED FEMALE BREAST; C77.3 - SEC AND UNSP MALIG NEOPLASM OF AXILLA AND UPPER LIMB NODES SNOMED Code(s): 821575664
[2017-06-10] MEDS ORDERED: FAMOTIDINE 20 MG TAB PO SCH (09:00)
--- NOTE | 2017-06-22 15:51 | P.HPIM ---
History of Present Illness H&P Date: 06/10/17 Chief Complaint: intractable pain, hospice This will serve both H and P and discharge summary Subjective This is a pleasant 81-year-old female recently transferred to my practice, presenting history off bilateral breast carcinoma with recently diagnosed breast carcinoma right side fall of 2017, noted to have increasing lymphedema and pain in the right side of the chest, and right deltoid area. She was recently worked up outpatient last week when I saw her for follow-up in the office and was found to have an axillary vein DVT last 06/04/2017. Performed on [facility], she also has a second rib cage fracture after a fall at home, patient's Xarelto dose was titrated to 15 mg bid x 21 days patient has been off Coumadin secondary to nutritional issues and compliance issues. She came in with increasing pain in the right upper extremity, and this time she has difficulty in raising the arm as well as extending her wrist, also concerned regarding the axillary lymph node mass /lymph node is enlarging, consults were made with Dr. Jacobsen for anticoagulation and compromised axillary area vs paraneoplastic syndrome consult with neurology Dr. Barfield axillary n/ radial nerve palsy. 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 Right arm still noted to be extremely weak and flaccid, although edema has improved slightly. BUN/creatinine have improved slightly, potassium 5.2, will continue with IV hydration and repeat in the morning. CT of the chest shows anacarca, cardiomegaly, pulmonary hypertension, moderate right with small left pleural effusions. She is also to have bulky lymphadenopathy along the right side of the chest extending from this supraclavicular region down to the axilla spanning up to 18.9 cm, additional mediastinal lymphadenopathy and diffuse metastasis extending of the liver, numerous bilateral kidney lesions. Concerning for recent metastasis to the liver and aortic arch. Oncology on consult. Midodrine 10mg TID, and Lasix 40mg x 2 doses added. Family was not at bedside today, will discuss possibility of palliative care with the son when he is available. patient admitted for general inpatient hospice care, IV morphine, patient has intractable pain uncontrolled with prn po morphine, son and patient requested hospice management Review of Systems Constitutional: Reports as per HPI, Denies anorexia, Denies chills, Denies chronic headaches, Denies chronic pain, Denies daytime sleepiness, Denies fatigue, Denies fever, Denies lethargy, Denies malaise, Denies night sweats, Denies poor appetite, Denies sweats, Denies weakness, Denies weight gain, Denies weight loss Ears, nose, mouth and throat: Reports as per HPI, Denies ant. neck pain, Denies bleeding gums, Denies dental pain, Denies dysphagia, Denies epistaxis, Denies headache, Denies hoarseness, Denies mouth pain, Denies nasal congestion, Denies nasal discharge, Denies neck fullness/pressure, Denies neck lump, Denies nose pain, Denies odynophagia, Denies post-nasal drip, Denies sinus pain, Denies sinus pressure, Denies swelling in mouth, Denies swelling in throat, Denies sore throat, Denies vertigo, Denies voice changes Cardiovascular: Reports as per HPI, Reports irregular heart beat, Reports rapid heart beat, Reports shortness of breath Respiratory: Reports as per HPI Gastrointestinal: Reports as per HPI, Reports nausea Genitourinary: Reports as per HPI, Denies abnormal vaginal bleeding, Denies decreased libido, Denies difficulty conceiving, Denies difficulty voiding, Denies dysmenorrhea, Denies dyspareunia, Denies dysuria, Denies flank pain, Denies genital sores, Denies hematuria, Denies hot flashes, Denies incomplete emptying, Denies kidney stones, Denies menorrhagia, Denies mixed incontinence, Denies nocturia, Denies pelvic pain, Denies post void dribbling, Denies , Denies prolapse symptoms, Denies stress incontinence, Denies urge incontinence , Denies urgency, Denies urinary frequency, Denies vaginal discharge, Denies vaginal dryness, Denies vaginal itching, Denies vaginal odor Menstruation: Reports postmenopausal Musculoskeletal: Reports as per HPI, Denies arm numbness/tingling, Denies atrophy, Denies fractures, Denies frequent falls, Denies gait dysfunction, Denies hot joints, Denies leg numbness/tingling, Denies limitation of motion, Denies loss of height, Denies low back pain, Denies morning stiffness, Denies muscle cramps, Denies muscle weakness, Denies myalgias, Denies neck pain, Denies neck stiffness, Denies prior amputations, Denies redness of joints, Denies shooting arm pain, Denies shooting leg pain Musculoskeletal: right: hand swelling, shoulder pain, shoulder swelling Integumentary: Reports as per HPI Neurological: Reports as per HPI, Denies aphasia, Denies ataxia, Denies balance difficulties, Denies burning pain, Denies change in mentation, Denies change in smell/taste, Denies change in speech, Denies confusion, Denies convulsions, Denies double vision, Denies gait dysfunction, Denies head injury, Denies headaches, Denies hearing difficulties, Denies lack of coordination, Denies loss of vision, Denies memory loss, Denies migraines, Denies motor disturbance, Denies numbness, Denies paralysis, Denies paresthesias, Denies seizures, Denies sensory deficit, Denies spasticity, Denies syncope, Denies tic, Denies tingling , Denies transient paralysis, Denies tremors, Denies vertigo, Denies weakness, Denies visual changes Psychiatric: Reports as per HPI, Reports memory loss Endocrine: Reports as per HPI, Denies cold intolerance, Denies deepening of the voice, Denies excessive sweating, Denies excessive thirst, Denies fatigue, Denies flushing, Denies heat intolerance, Denies high blood sugars, Denies increase in ring/shoe/hat size, Denies low blood sugars, Denies nocturia, Denies palpitations, Denies polydipsia, Denies polyphagia, Denies polyuria, Denies proptosis, Denies recent glucocorticoid use, Denies thyroid mass, Denies weight change Hematologic/Lymphatic: Reports as per HPI, Reports lymphadenopathy, Reports lymphedema Allergic/Immunologic: Reports as per HPI Past Medical History Past Medical History: Atrial Fibrillation, Blood Disorder, Cancer, Heart Failure , Hyperlipidemia, Hypertension, Pneumonia, Skin Disorder Additional Past Medical History / Comment(s): breast cancer diagnosed July 2015 with masectomy, skin cancer, vertigo, mitral valve stenosis, chronic atrial fibrillation, gout ,incontinent of urine, right lymph positve for breast ca in November 2016, chronic renal failure. Thrombocytopenia. Anemia History of Any Multi-Drug Resistant Organisms: MRSA Date of last positivie culture/infection: 05/02/14 MDRO Source:: Right first finger Past Surgical History: Breast Surgery, Hysterectomy, Joint Replacement Additional Past Surgical History / Comment(s): CORE BX LT BREAST, RT KNEE REPLACEMENT, RT INDEX FINGER DEBRIDEMENT,SKIN GRAFTRT FIRST FINGER, MULT SKIN CA REMOVED,CATHERINE CAT. lt breast mastectomy due to ca with lymph node removal july 2015 Past Anesthesia/Blood Transfusion Reactions: Motion Sickness Additional Past Anesthesia/Blood Transfusion Reaction / Comment(s): TAKES LONG TIME TO WAKE UP FROM ANESTHESIA,NO PROBLEMS WITH PRIOR BLOOD TRANSFUSIONS Past Psychological History: Anxiety Smoking Status: Never smoker - Past Family History Brother(s) Family Medical History: Cancer (Brain), Coronary Artery Disease (CAD) Additional Family Medical History / Comment(s): BRAIN CANCER,HEART PROBLEMS Father Family Medical History: Coronary Artery Disease (CAD), Myocardial Infarction ([place] ), Renal Disease Mother Family Medical History: Hypertension, Myocardial Infarction ([place]) Additional Family Medical History / Comment(s): One sister healthy, no daughters 2 sons healthy Medications and Allergies Home Medications Medication Instructions Recorded Confirmed Type LORazepam ORAL CONC [Ativan 0.5 mg PO Q2H PRN #60 ml 06/11/17 Rx Intensol] Ondansetron [Zofran] 4 mg IVP Q8HR PRN vial 06/11/17 Rx Scopolamine 1.5MG/72Hr Patch 1 patch TRANSDERM Q72H PRN #0 patch 06/11/17 Rx [TransDerm Scop] Allergies Allergy/AdvReac Type Severity Reaction Status Date / Time No Known Allergies Allergy Verified 06/07/17 18:07 Results CBC & Chem 7: 06/07/17 14:04 06/09/17 07:00 Thrombosis Risk Factor Assmnt - Choose All That Apply Any of the Below Risk Factors Present?: Yes Each Factor Represents 1 point: Obesity (BMI >25) Each Risk Factor Represents 3 Points: Age 75 years or older Thrombosis Risk Factor Assessment Total Risk Factor Score: 4 Thrombosis Risk Factor Assessment Level: Moderate Risk Assessment and Plan Plan: Assessment and Plan Plan: 1. Intractable right upper extremity pain secondary to metastatic lesions arising from breast cancer, pain related to malignancy, patient is on the 10th patch which was recently started however this is not adequate, the patient was reluctant on this medication morphine ER when the discussed initiating long- acting opiates, morphine IV 2 mg bolus and 1-2 mg q hr Chest CT shows recent metastasis to the liver and aortic arch with heavy burden to the axilla and supraclavicular region, oncology on consult. 2. 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 Axillary vein DVT diagnosed 06/04/2017was on anticoagulation, will discontinue as hospice manangement 4 Acute on chronic kidney failure stage III with creatinine baseline lowest 1.2- 1.3 in 02/[address] secondary to creatinine clearance of 18 on admission 5 Atrial fibrillation with rapid ventricular rate, patient is chronically on anticoagulation, increase metoprolol to 50 mg twice a day echocardiogram was performed 2017 moderate to severe mitral stenosis, peak gradient of 24, moderate MR, severe LAD palpitations, LVH, EF 50-55%, moderate pulmonary hypertension, right ventricular systolic pressure 62 6. Hyperlipidemia on Lipitor 10 mg dinner will be discontinued, 7. Hypertension on Lopressor 25 mg twice a day which is increased to 50 mg twice a day secondary to RVR, continue till patient is able to accept oral pills 8 Bilateral breast cancer left side diagnosed July 2015, right side diagnosed November 2016 no chemotherapy requested by patient for future treatments, the stasis to the lymph node identified, bilateral mastectomy 9 Severe mitral stenosis 10 rib #2 fracture right side secondary to fall 11 Anxiety, increase Xanax to 0.25 mg twice a day when necessary 12 Right-sided lymphedema uncontrolled, on Lasix 40 mg daily x 2 doses, gabapentin 100 mg 3 times a day to start, has underlying axillary vein thrombosis as well and a large lymph node metastatic from the breast. 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 Impaired balance and gait, compromise now with loss of right upper extremity mobility, physical therapy and occupational therapy to see the patient [facility]
== END 2017-06-09 19:45 | disposition hospice, home (50) | DRG 947 ==
LOC: EC 12:58 → 5ONC 17:56
PROVIDERS: ADMIT Family Medicine; ATTEND Family Medicine
DX: G89.3 Neoplasm related pain (acute) (chronic) (principal); N17.0 Acute kidney failure with tubular necrosis; S22.39XA Fracture of one rib, unspecified side, initial encounter for closed fracture; C78.7 Secondary malignant neoplasm of liver and intrahepatic bile duct; I13.0 Hypertensive heart and chronic kidney disease with heart failure and stage 1 through stage 4 chronic kidney disease, or unspecified chronic kidney disease; I50.32 Chronic diastolic (congestive) heart failure; I82.A11 Acute embolism and thrombosis of right axillary vein; J98.11 Atelectasis; N18.4 Chronic kidney disease, stage 4 (severe); C77.3 Secondary and unspecified malignant neoplasm of axilla and upper limb lymph nodes; C77.1 Secondary and unspecified malignant neoplasm of intrathoracic lymph nodes; C79.89 Secondary malignant neoplasm of other specified sites; D69.6 Thrombocytopenia, unspecified; E78.5 Hyperlipidemia, unspecified; E86.0 Dehydration; E87.5 Hyperkalemia; F32.9 Major depressive disorder, single episode, unspecified; F41.9 Anxiety disorder, unspecified; I05.0 Rheumatic mitral stenosis; I27.20 Pulmonary hypertension, unspecified; I48.2 Chronic atrial fibrillation; W18.30XA Fall on same level, unspecified, initial encounter; Y92.009 Unspecified place in unspecified non-institutional (private) residence as the place of occurrence of the external cause; Z17.1 Estrogen receptor negative status [ER-]; I89.0 Lymphedema, not elsewhere classified; Z51.5 Encounter for palliative care; Z79.899 Other long term (current) drug therapy; Z85.3 Personal history of malignant neoplasm of breast; Z82.49 Family history of ischemic heart disease and other diseases of the circulatory system; Z90.13 Acquired absence of bilateral breasts and nipples; Z90.710 Acquired absence of both cervix and uterus; Z91.19 Patient's noncompliance with other medical treatment and regimen; Z96.651 Presence of right artificial knee joint; R11.2 Nausea with vomiting, unspecified; T40.4X5A Adverse effect of other synthetic narcotics, initial encounter; Z98.42 Cataract extraction status, left eye; Z98.41 Cataract extraction status, right eye; Z92.21 Personal history of antineoplastic chemotherapy; Z92.3 Personal history of irradiation; R00.0 Tachycardia, unspecified; Z80.9 Family history of malignant neoplasm, unspecified; Z84.1 Family history of disorders of kidney and ureter; M10.9 Gout, unspecified; Z85.828 Personal history of other malignant neoplasm of skin; Z86.14 Personal history of Methicillin resistant Staphylococcus aureus infection; Z86.718 Personal history of other venous thrombosis and embolism
CPT/HCPCS: 36415; 71250; 80048; 80053; 83880; 84484; 85025; 85610; 85730; 93005; 96361; 96374; 96375; 96376; 99285

== ENCOUNTER 2017-06-09 19:49 | Inpatient (IN) | payer OTHER ==
[2017-06-09 20:23] VITALS: BMI 29.2
[2017-06-09] MEDS ORDERED: ONDANSETRON 4 MG/2 ML VIAL IVP PRN (21:10)
[2017-06-09] MEDS ORDERED: ACETAMINOPHEN TAB 325 MG TAB PO PRN (21:10)
[2017-06-09] MEDS ORDERED: LORazepam 0.5 MG TAB PO PRN (21:10)
[2017-06-09] MEDS ORDERED: METOCLOPRAMIDE 5 MG/ML 2 ML VIAL IVP PRN (21:10)
[2017-06-09] MEDS ORDERED: MORPHINE ORAL SOL CONC 20 MG/ML BOTTLE PO PRN (21:13)
[2017-06-10] MEDS ORDERED: DOCUSATE 100 MG CAP PO PRN (08:09)
[2017-06-10] MEDS ORDERED: LORazepam 1 MG TAB PO PRN ×2 (08:10)
[2017-06-10] MEDS ORDERED: SCOPOLAMINE 1.5MG/72HR PATCH TRANSDERM PRN (08:12)
[2017-06-10] MEDS: MORPHINE SULFATE (100 MG/2 ML) 100 MG in SODIUM CHLORIDE 0.9% 100 ML IV SCH (11:25)
[2017-06-10] MEDS: METOPROLOL TARTRATE 50 MG TAB PO SCH (12:22)
--- NOTE | 2017-06-10 13:49 | P.HPIM ---
History of Present Illness This is a pleasant 81-year-old female recently transferred to my practice, presenting history off bilateral breast carcinoma with recently diagnosed breast carcinoma right side fall of 2017, noted to have increasing lymphedema and pain in the right side of the chest, and right deltoid area. She was recently worked up outpatient last week when I saw her for follow-up in the office and was found to have an axillary vein DVT last 06/04/2017. Performed on [facility], she also has a second rib cage fracture after a fall at home, patient's Xarelto dose was titrated to 15 mg bid x 21 days patient has been off Coumadin secondary to nutritional issues and compliance issues. She came in with increasing pain in the right upper extremity, and this time she has difficulty in raising the arm as well as extending her wrist, also concerned regarding the axillary lymph node mass /lymph node is enlarging, consults were made with Dr. Jacobsen for anticoagulation and compromised axillary area vs paraneoplastic syndrome consult with neurology Dr. Barfield axillary n/ radial nerve palsy. 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 She had CT of the chest that showed anacarca, cardiomegaly, pulmonary hypertension, moderate right with small left pleural effusions. She is also to have bulky lymphadenopathy along the right side of the chest extending from this supraclavicular region down to the axilla spanning up to 18.9 cm, additional mediastinal lymphadenopathy and diffuse metastasis extending of the liver, numerous bilateral kidney lesions. Concerning for recent metastasis to the liver and aortic arch. Oncology is on consult, discussed with the patient regarding palliative radiation patient and she declined. She also declined any further chemotherapy. She is requesting hospice, consult was placed and patient was open to hospice care. Review of Systems Constitutional: Reports as per HPI, Reports anorexia, Reports chronic pain Ears, nose, mouth and throat: Reports as per HPI Cardiovascular: Reports as per HPI Respiratory: Reports as per HPI Gastrointestinal: Reports as per HPI, Denies abdominal pain, Denies belching, Denies bloating, Denies BRBPR, Denies change in bowel habits, Denies coffee ground emesis, Denies constipation, Denies diarrhea, Denies dyspepsia, Denies early satiety, Denies excessive gas, Denies heartburn, Denies hematemesis, Denies hematochezia, Denies indigestion, Denies jaundice, Denies lactose intolerance, Denies loss of appetite, Denies melena, Denies nausea, Denies vomiting Genitourinary: Reports as per HPI, Denies abnormal vaginal bleeding, Denies decreased libido, Denies difficulty conceiving, Denies difficulty voiding, Denies dysmenorrhea, Denies dyspareunia, Denies dysuria, Denies flank pain, Denies genital sores, Denies hematuria, Denies hot flashes, Denies incomplete emptying, Denies kidney stones, Denies menorrhagia, Denies mixed incontinence, Denies nocturia, Denies pelvic pain, Denies post void dribbling, Denies , Denies prolapse symptoms, Denies stress incontinence, Denies urge incontinence , Denies urgency, Denies urinary frequency, Denies vaginal discharge, Denies vaginal dryness, Denies vaginal itching, Denies vaginal odor Menstruation: Reports as per HPI, Reports postmenopausal Musculoskeletal: Reports as per HPI, Reports arm numbness/tingling, Reports limitation of motion, Reports muscle weakness ( right upper extremity motion right upper extremity including wrist chief mate) Integumentary: Reports as per HPI, Denies acne, Denies boils, Denies brittle nails, Denies change in hair/nails, Denies color changes, Denies darkening of skin, Denies depigmentation, Denies dryness, Denies foot/leg ulcers, Denies growths, Denies hirsutism, Denies lesions, Denies onychomycosis, Denies pruritus , Denies rash, Denies sores, Denies striae, Denies unusual bruising, Denies wounds Neurological: Reports as per HPI, Denies aphasia, Denies ataxia, Denies balance difficulties, Denies burning pain, Denies change in mentation, Denies change in smell/taste, Denies change in speech, Denies confusion, Denies convulsions, Denies double vision, Denies gait dysfunction, Denies head injury, Denies headaches, Denies hearing difficulties, Denies lack of coordination, Denies loss of vision, Denies memory loss, Denies migraines, Denies motor disturbance, Denies numbness, Denies paralysis, Denies paresthesias, Denies seizures, Denies sensory deficit, Denies spasticity, Denies syncope, Denies tic, Denies tingling , Denies transient paralysis, Denies tremors, Denies vertigo, Denies weakness, Denies visual changes Psychiatric: Reports as per HPI, Reports anxiety, Reports insomnia, Reports sleep disturbances, Denies anhedonia, Denies anxiety attacks, Denies change in appetite, Denies change in libido, Denies change in sleep habits, Denies confusion, Denies depression, Denies difficulty concentrating, Denies disorientation, Denies hallucinations, Denies hopelessness, Denies hypersomnia, Denies irritability, Denies memory loss, Denies mood swings, Denies paranoia, Denies sadness/tearfulness, Denies suicidal ideation Endocrine: Reports as per HPI, Denies cold intolerance, Denies deepening of the voice, Denies excessive sweating, Denies excessive thirst, Denies fatigue, Denies flushing, Denies heat intolerance, Denies high blood sugars, Denies increase in ring/shoe/hat size, Denies low blood sugars, Denies nocturia, Denies palpitations, Denies polydipsia, Denies polyphagia, Denies polyuria, Denies proptosis, Denies recent glucocorticoid use, Denies thyroid mass, Denies weight change Hematologic/Lymphatic: Reports as per HPI Allergic/Immunologic: Reports as per HPI Past Medical History Past Medical History: Atrial Fibrillation, Blood Disorder, Cancer, Heart Failure , Hyperlipidemia, Hypertension, Pneumonia, Skin Disorder Additional Past Medical History / Comment(s): breast cancer diagnosed July 2015 with masectomy, skin cancer, vertigo, mitral valve stenosis, chronic atrial fibrillation, gout ,incontinent of urine, right lymph positve for breast ca in November 2016, chronic renal failure. Thrombocytopenia. Anemia History of Any Multi-Drug Resistant Organisms: MRSA Date of last positivie culture/infection: 05/02/14 MDRO Source:: Right first finger Past Surgical History: Breast Surgery, Hysterectomy, Joint Replacement Additional Past Surgical History / Comment(s): CORE BX LT BREAST, RT KNEE REPLACEMENT, RT INDEX FINGER DEBRIDEMENT,SKIN GRAFTRT FIRST FINGER, MULT SKIN CA REMOVED,CATHERINE CAT. lt breast mastectomy due to ca with lymph node removal july 2015 Past Anesthesia/Blood Transfusion Reactions: Motion Sickness Additional Past Anesthesia/Blood Transfusion Reaction / Comment(s): TAKES LONG TIME TO WAKE UP FROM ANESTHESIA,NO PROBLEMS WITH PRIOR BLOOD TRANSFUSIONS Past Psychological History: Anxiety Smoking Status: Never smoker Past Alcohol Use History: None Reported Past Drug Use History: None Reported - Past Family History Brother(s) Family Medical History: Cancer, Coronary Artery Disease (CAD) Additional Family Medical History / Comment(s): BRAIN CANCER,HEART PROBLEMS Father Family Medical History: Coronary Artery Disease (CAD), Myocardial Infarction (ID ), Renal Disease Mother Family Medical History: Hypertension, Myocardial Infarction (ID) Additional Family Medical History / Comment(s): One sister healthy, no daughters 2 sons healthy Medications and Allergies Home Medications Medication Instructions Recorded Confirmed Type Metoprolol Tartrate [Lopressor] 25 mg PO BID #60 tab 01/24/14 06/07/17 Rx Mirabegron [Myrbetriq] 25 mg PO DAILY@1200 12/10/16 06/07/17 History Allopurinol [Zyloprim] 100 mg PO W/SUPPER 03/01/17 06/07/17 History Atorvastatin [Lipitor] 10 mg PO W/SUPPER 03/21/17 06/07/17 History ALPRAZolam [Xanax] 0.125 mg PO HS PRN 06/07/17 06/07/17 History Acetaminophen Tab [Tylenol Tab] 500 - 1,000 mg PO Q6HR PRN 06/07/17 06/07/17 History Furosemide [Lasix] 40 mg PO BID@0900,1200 06/07/17 06/07/17 History Potassium Chloride ER [K-Dur 10] 10 meq PO W/SUPPER 06/07/17 06/07/17 History Potassium Chloride [K-Tab ER] 10 meq PO Q48H 06/07/17 06/07/17 History Rivaroxaban [Xarelto] 15 mg PO BID 06/07/17 06/07/17 History Allergies Allergy/AdvReac Type Severity Reaction Status Date / Time No Known Allergies Allergy Verified 06/07/17 18:07 Physical Exam Vitals: Vital Signs Resp 06/09/17 21:30 18 Intake and Output 06/09/17 06/10/17 06/10/17 22:59 06:59 14:59 Intake Total 150 590 Balance 150 590 Intake: Oral 150 590 Other: Voiding Method Incontinent # Voids 2 1 Weight 68 kg - Constitutional General appearance: cooperative, no acute distress - EENT Eyes: anicteric sclerae, EOMI, PERRLA, dentition normal ENT: NA/AT, normal oropharynx - Neck Neck: normal ROM - Respiratory Respiratory: bilateral: CTA, negative: diminished, dullness - Cardiovascular Rhythm: regular Heart sounds: normal: S1 Abnormal Heart Sounds: no systolic murmur, no diastolic murmur, no rub, no S3 Gallop, no S4 Gallop, no click, no other - Gastrointestinal General gastrointestinal: normal bowel sounds, soft - Integumentary Integumentary: decreased turgor, normal - Neurologic Neurologic: CNII-XII intact - Musculoskeletal Musculoskeletal: generalized weakness, right sided weakness (Right upper extremity paralysis, unable to raise arm, unable to chief mate, able to raise wrist) - Psychiatric Psychiatric: A&O x's 3 Thrombosis Risk Factor Assmnt - Choose All That Apply Any of the Below Risk Factors Present?: Yes Each Factor Represents 1 point: Serious lung disease incl. pneumonia (< 1month) Other Risk Factors: Yes Each Risk Factor Represents 2 Points: Central venous access Each Risk Factor Represents 3 Points: Age 75 years or older, Family history of DVT/PE Other congenital or acquired thrombophilia - If yes, enter type in comment: No Thrombosis Risk Factor Assessment Total Risk Factor Score: 9 Thrombosis Risk Factor Assessment Level: High Risk Assessment and Plan Plan: 1. Intractable right upper extremity pain secondary to metastatic lesions arising from breast cancer, pain related to malignancy, patient will receive morphine 2 mg per hour for pain control. Patient is opened to hospice. Patient is declining any further chemotherapy or palliative radiation. 2. Loss of upper extremity movement with suspected axillary nerve, radial nerve palsy with worsening lymphedema and axillary metastatic disease from breast cancer, possible paraneoplastic syndrome.vs postphlebitic syndrome. Will continue to make patient comfortable 3. Axillary vein DVT diagnosed 06/04/2017, Eliquis discontinued, will continue with hospice care 4 Acute on chronic kidney failure stage III with creatinine baseline lowest 1.2- 1.3 in 02/[address] secondary atn fluctuating over the years and 2 creatinine of 2.5 secondary to anorexia with diminished intake most likely secondary arising to ATN. 5 Atrial fibrillation with rapid ventricular rate, patient is chronically on anticoagulation, metoprolol to 25 mg twice a day echocardiogram was performed 2017 moderate to severe mitral stenosis, peak gradient of 24, moderate MR, severe LAD palpitations, LVH, EF 50-55%, moderate pulmonary hypertension, right ventricular systolic pressure 62 6. Hyperlipidemia. 7. Hypertension, Lopressor 25 mg twice a day 8 Bilateral breast cancer left side diagnosed July 2015, right side diagnosed November 2016 no chemotherapy requested by patient for future treatments, the stasis to the lymph node identified, bilateral mastectomy 9 Severe mitral stenosis 10 rib #2 fracture right side secondary to fall 11 Anxiety, Ativan 2 mg by mouth every 4 hours when necessary 12 Right-sided lymphedema secondary to underlying axillary vein thrombosis as well and a large lymph node metastatic from the breast. 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 Impaired balance and gait, compromise now with loss of right upper extremity mobilitynt Discharge planning hospice care The above impression and plan of care have been discussed and directed by signing physician. Jess Justin nurse practitioner acting as scribe for signing physician.
[2017-06-10] MEDS ORDERED: APIXABAN 5 MG TAB PO SCH (21:00)
[2017-06-11] MEDS: METOPROLOL TARTRATE 50 MG TAB PO SCH (10:00)
[2017-06-11 12:29] VITALS: PULSE 60
[2017-06-11] MEDS: MORPHINE SULFATE (100 MG/2 ML) 100 MG in SODIUM CHLORIDE 0.9% 100 ML IV SCH (12:32)
--- NOTE | 2017-06-11 14:04 | P.DS ---
Providers Date of admission: 06/09/17 19:49 Attending physician: Lourdes Panda Consults: This is a pleasant 81-year-old female recently transferred to my practice, presenting history off bilateral breast carcinoma with recently diagnosed breast carcinoma right side fall of 2017, noted to have increasing lymphedema and pain in the right side of the chest, and right deltoid area. She was recently worked up outpatient last week when I saw her for follow-up in the office and was found to have an axillary vein DVT last 06/04/2017. Performed on [facility], she also has a second rib cage fracture after a fall at home, patient's Xarelto dose was titrated to 15 mg bid x 21 days patient has been off Coumadin secondary to nutritional issues and compliance issues. She came in with increasing pain in the right upper extremity, and this time she has difficulty in raising the arm as well as extending her wrist, also concerned regarding the axillary lymph node mass /lymph node is enlarging, consults were made with Dr. Jacobsen for anticoagulation and compromised axillary area vs paraneoplastic syndrome consult with neurology Dr. Barfield axillary n/ radial nerve palsy. 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 She had CT of the chest that showed anacarca, cardiomegaly, pulmonary hypertension, moderate right with small left pleural effusions. She is also to have bulky lymphadenopathy along the right side of the chest extending from this supraclavicular region down to the axilla spanning up to 18.9 cm, additional mediastinal lymphadenopathy and diffuse metastasis extending of the liver, numerous bilateral kidney lesions. Concerning for recent metastasis to the liver and aortic arch. Oncology is on consult, discussed with the patient regarding palliative radiation patient and she declined. She also declined any further chemotherapy. She is requesting hospice, consult was placed and patient was open to hospice care. 06/11: Patient was evaluated resting in bed comfortably. Family was surrounding bedside. Plans are to move her to [facility] hospice once a bed becomes available today. She'll continue IV morphine for pain control. Discharge diagnoses 1. Intractable right upper extremity pain secondary to metastatic lesions arising from breast cancer 2. Loss of upper extremity movement with suspected axillary nerve, radial nerve palsy with worsening lymphedema and axillary metastatic disease from breast cancer 3. Axillary vein DVT 4 Acute on chronic kidney failure stage III 5 Atrial fibrillation with rapid ventricular rate 6. Hyperlipidemia 7. 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 Impaired balance and gait Discharge planning hospice care The above impression and plan of care have been discussed and directed by signing physician. Jess Justin nurse practitioner acting as scribe for signing physician. Primary care physician: Lourdes Panda Plan - Discharge Summary Discharge Rx Participant: No New Discharge Prescriptions: New LORazepam ORAL CONC [Ativan Intensol] 0.5 mg PO Q2H PRN #60 ml PRN Reason: Anxiety Ondansetron [Zofran] 4 mg IVP Q8HR PRN vial PRN Reason: Nausea/emesis Scopolamine 1.5MG/72Hr Patch [TransDerm Scop] 1 patch TRANSDERM Q72H PRN #0 patch PRN Reason: Secretions Discontinued Metoprolol Tartrate [Lopressor] 25 mg PO BID #60 tab Mirabegron [Myrbetriq] 25 mg PO DAILY@1200 Allopurinol [Zyloprim] 100 mg PO W/SUPPER Atorvastatin [Lipitor] 10 mg PO W/SUPPER Rivaroxaban [Xarelto] 15 mg PO BID Furosemide [Lasix] 40 mg PO BID@0900,1200 Potassium Chloride [K-Tab ER] 10 meq PO Q48H Potassium Chloride ER [K-Dur 10] 10 meq PO W/SUPPER ALPRAZolam [Xanax] 0.125 mg PO HS PRN PRN Reason: Anxiety Acetaminophen Tab [Tylenol Tab] 500 - 1,000 mg PO Q6HR PRN PRN Reason: Pain Discharge Medication List LORazepam ORAL CONC [Ativan Intensol] 0.5 mg PO Q2H PRN #60 ml 06/11/17 [Rx] Ondansetron [Zofran] 4 mg IVP Q8HR PRN vial 06/11/17 [Rx] Scopolamine 1.5MG/72Hr Patch [TransDerm Scop] 1 patch TRANSDERM Q72H PRN #0 patch 06/11/17 [Rx] Discharge Disposition: DISCH TO HOSPICE MED FACILTY
[2017-06-11] MEDS: ATROPINE OPHTH SOLN 1% 5ML BTL SUBLINGUAL PRN (18:04)
[2017-06-11] MEDS ORDERED: LORazepam ORAL CONC 60 MG/30 ML BOTTLE PO PRN (20:30)
[2017-06-12] MEDS: MORPHINE SULFATE (100 MG/2 ML) 100 MG in SODIUM CHLORIDE 0.9% 100 ML IV SCH (01:50)
[2017-06-12 09:37] VITALS: RESP 10
[2017-06-12] MEDS: METOPROLOL TARTRATE 50 MG TAB PO SCH (10:07)
[2017-06-12] MEDS: ATROPINE OPHTH SOLN 1% 5ML BTL SUBLINGUAL PRN (10:43)
[2017-06-12] MEDS ORDERED: LORazepam ORAL CONC 60 MG/30 ML BOTTLE PO SCH (14:00)
[2017-06-12] MEDS ORDERED: ATROPINE OPHTH SOLN 1% 5ML BTL SUBLINGUAL SCH (16:00)
== END 2017-06-12 13:30 | disposition expired | DRG 951 ==
LOC: 5ONC 19:49
PROVIDERS: ADMIT Family Medicine; ATTEND Family Medicine
DX: Z51.5 Encounter for palliative care (principal); N17.0 Acute kidney failure with tubular necrosis; C77.9 Secondary and unspecified malignant neoplasm of lymph node, unspecified; C78.7 Secondary malignant neoplasm of liver and intrahepatic bile duct; I13.0 Hypertensive heart and chronic kidney disease with heart failure and stage 1 through stage 4 chronic kidney disease, or unspecified chronic kidney disease; I82.A19 Acute embolism and thrombosis of unspecified axillary vein; E78.5 Hyperlipidemia, unspecified; F32.9 Major depressive disorder, single episode, unspecified; F41.9 Anxiety disorder, unspecified; G89.3 Neoplasm related pain (acute) (chronic); I05.0 Rheumatic mitral stenosis; I27.20 Pulmonary hypertension, unspecified; I48.2 Chronic atrial fibrillation; I50.9 Heart failure, unspecified; I89.0 Lymphedema, not elsewhere classified; N18.3 Chronic kidney disease, stage 3 (moderate); W19.XXXA Unspecified fall, initial encounter; Y92.009 Unspecified place in unspecified non-institutional (private) residence as the place of occurrence of the external cause; Z79.01 Long term (current) use of anticoagulants; Z79.899 Other long term (current) drug therapy; Z80.8 Family history of malignant neoplasm of other organs or systems; Z82.49 Family history of ischemic heart disease and other diseases of the circulatory system; Z85.3 Personal history of malignant neoplasm of breast; Z85.828 Personal history of other malignant neoplasm of skin; Z90.12 Acquired absence of left breast and nipple; Z90.710 Acquired absence of both cervix and uterus; Z91.19 Patient's noncompliance with other medical treatment and regimen; Z96.651 Presence of right artificial knee joint; G56.31 Lesion of radial nerve, right upper limb